=== PATIENT | female | born 1995 | race Two or more races ===

== ENCOUNTER 2017-04-05 19:40 | Emergency (ER) | payer OTHER ==
[~2017-04-05] VITALS: Ht 152.4 cm; Wt 59.0 kg
[2017-04-05 20:10] VITALS: BP 121/78
[2017-04-05] MEDS ORDERED: LANTUS SOL100 UNIT/1 SUBQ (20:10)
[2017-04-05] MEDS ORDERED: HUMALOG 75/255 UNIT1 SUBQ (20:10)
--- NOTE | 2017-04-05 20:36 | Emergency Room Report ---
History of Present Illness General Chief Complaint: Pain Source: Patient Present Illness HPI 22 YO Female presents to the ED c/o intermittent rib and epigastric discomfort with decreased appetite x 8 months. pt rates her discomfort as 8/10 in severity and described bloating/nausea and bilateral rib tenderness. Pt. states she has mentioned her symptoms on several occasions to her PMD whom told her it was muscular after having normal lab results. pt. has copy of most recent lab results from last month. pt. denies , denies trauma/ or fall, denies SOB. pt was rx'd Z-pack two days ago for new onset cough. denies fevers or chills. pt. states cough does not affect intermittent abdominal discomfort. Pt states she has taken tylenol to relieve pain with no relief previously when dx' d as musculoskeletal. Denies N/V/constipation or diarrhea denies CP, Palpitations, LOC, AMS, dizziness, Changes in Vision, Sensation, paresthesias, or a sudden severe headache. Allergies: Coded Allergies: No Known Allergies (Unverified , 04/05/17) Patient History Past Medical History: see triage record Past Surgical History: none Pertinent Family History: none Last Menstrual Period: 03/27/17 Now: No Reviewed Nursing Documentation: PMH: Agreed, PSxH: Agreed Nursing Documentation-PMH Past Medical History: No History, Except For Hx Diabetes: Yes - Type I Review of Systems All Other Systems: negative except mentioned in HPI Physical Exam Vital Signs Date Time Temp Pulse Resp B/P Pulse Ox O2 Delivery O2 Flow Rate FiO2 04/05/17 20:04 98.2 85 16 121/78 97 Room Air Sp02 EP Interpretation: reviewed, normal General Appearance: no apparent distress, alert, GCS 15, non-toxic Head: normocephalic, atraumatic Eyes: bilateral eye PERRL, bilateral eye normal inspection ENT: hearing grossly normal, normal pharynx, no angioedema, normal voice Neck: full range of motion, supple/symm/no masses Respiratory: chest non-tender, lungs clear, normal breath sounds, speaking full sentences Cardiovascular #1: regular rate, rhythm, no edema Gastrointestinal: normal bowel sounds, non tender, soft, no guarding, no rebound Rectal: deferred Genitourinary: normal inspection, no CVA tenderness Musculoskeletal: back normal, gait/station normal, normal range of motion, non- tender, no calf tenderness Neurologic: alert, oriented x3, responsive, motor strength/tone normal, sensory intact, speech normal Psychiatric: judgement/insight normal, memory normal, mood/affect normal Skin: normal color, no rash, warm/dry, well hydrated Lymphatic: no adenopathy Medical Decision Making PA Attestation Dr. Washington is my supervising Physician whom patient management has been discussed with. Diagnostic Impression: Primary Impression: Gastritis Qualified Codes: K29.00 - Acute gastritis without bleeding ER Course Pt. presents to the ED c/o intermittent rib and epigastric discomfort with decreased appetite x 8 months. pt rates her discomfort as 8/10 in severity and described bloating/nausea and bilateral rib tenderness. Pt. states she has mentioned her symptoms on several occasions to her PMD whom told her it was muscular after having normal lab results. pt. has copy of most recent lab results from last month. pt. denies , denies trauma/ or fall, denies SOB. pt was rx'd Z-pack two days ago for new onset cough. denies fevers or chills. pt. states cough does not affect intermittent abdominal discomfort. -has PMD appt. tomorrow. recent normal lab results. Ddx considered but are not limited to GE, gastritis, colitis, acute appy, SBO, , pneumonia Vital signs: pt. is afebrile, H&PE are most consistent with probable gastritis, no PE to suggest acute abdomen or pancreatitis, no organomegaly palpated. pain is not reproducible, lung sounds are CTA bilaterally. ORDERS: - Urine HCG: negative ED INTERVENTIONS: - GI cocktail I do not suspect an emergent condition at this time. with current presentation pt. is stable for close outpatient follow up. DISCHARGE: At this time pt. is stable for d/c to home. Will provide printed patient care instructions, and any necessary prescriptions. Care plan and follow up instructions have been discussed with the patient prior to discharge. Labs Test 04/05/17 21:24 Urine HCG, Qualitative Negative Chest X-Ray Diagnostic Results Chest X-Ray Ordered: Yes # of Views/Limited/Complete: 1 View Interpretation: no consolidation, no effusion, no pneumothorax, no acute cardiopulmonary disease Indication: Chest Pain - bilateral anterior lower rib/chest pain Impression: No acute disease Date Electronically Signed: Apr 05, 2017 Time Electronically Signed: 21:30 Interpreting ER Physician: Dr. Washington PA Scribe Text acting as a scribe for dr. Washington. Last Vital Signs Date Time Temp Pulse Resp B/P Pulse Ox O2 Delivery O2 Flow Rate FiO2 04/05/17 20:04 98.2 85 16 121/78 97 Room Air Disposition: HOME, SELF-CARE Condition: Stable Scripts Lidocaine HCl (Lidocaine HCl Viscous) 100 Ml Solution 15 ML PO QID, #120 ML Prov: Teena Lima 04/05/17 Ranitidine Hcl* (ZANTAC*) 150 Mg Tablet 150 MG ORAL TWICE A DAY for 30 Days, #60 TAB Prov: Teena Lima 04/05/17 Patient Instructions: Gastritis, Adult, [id number] Additional Instructions: Take medications as directed. Follow up with PCP in 3-5 days, if symptoms persist recommend further evaluation to include pancreatic enzymes. Return sooner to ED if new symptoms occur, or current symptoms become worse. - Please note that this Emergency Department Report was dictated using [employer] technology software, occasionally this can lead to erroneous entry secondary to interpretation by the dictation equipment. Teena Lima Apr 05, 2017 20:36
[2017-04-05] MEDS ORDERED: Mylanta II UD 30ml ORAL ONE (21:15)
[2017-04-05] MEDS ORDERED: Dicyclomine HCl 10mg/5ml oral soln ORAL ONE (21:15)
[2017-04-05] MEDS ORDERED: Lidocaine 2% Visc 15ml soln ORAL ONE (21:15)
[2017-04-05] MEDS ORDERED: LIDOCAINE VISCO20 ML PO (22:05)
[2017-04-05] MEDS ORDERED: ZANTAC150 MG ORAL (22:05)
[2017-04-05 22:10] VITALS: BP 118/70
[2017-04-05 22:20] VITALS: BP 118/70
--- NOTE | 2017-04-06 09:24 | Diagnostic Imaging Report ---
Indication: Chest pain Technique: Single portable AP view of the chest. Findings: Comparison: None. The bones and extra pulmonary soft tissues, cardiomediastinal silhouette, pulmonary vasculature and parenchyma, and pleural surfaces are unremarkable. IMPRESSION: Negative portable AP chest.
== END 2017-04-05 22:20 | disposition home or self-care (01) ==
LOC: EMR 21:25
DX: K29.00 Acute gastritis without bleeding (principal); E10.8 Type 1 diabetes mellitus with unspecified complications; R07.9 Chest pain, unspecified
CPT/HCPCS: 71010; 81025; 99284

== ENCOUNTER 2019-04-18 23:54 | Emergency (ER) | payer OTHER ==
[~2019-04-18] VITALS: Ht 154.9 cm; Wt 59.4 kg
[~2019-04-18 23:54] MED LIST: HUMALOG 75/255 UNIT1 SUBQ; LANTUS SOL100 UNIT/1 SUBQ; LIDOCAINE VISCO20 ML PO; ZANTAC150 MG ORAL
[2019-04-19 00:20] VITALS: BP 110/71
--- NOTE | 2019-04-19 00:30 | NUR ---
ER Nurse Note: Pt came from home c/o left lower abd pain. Pt stated the pain got worse today and feels a ball like mass. Pt visited her PCP for same problem but was not resolved. Pt states pain 9/10 sharp pain with nausea. No trauma to abd, no vomiting. All orders completed per ERMD orders. Will continue to monitior
[2019-04-19 00:35] LABS: BASOPHILS % (AUTO) 0.6 % (0.0-2.0); EOSINOPHILS % (AUTO) 1.6 % (0.0-3.0); HEMATOCRIT 39.9 % (37.0-47.0); HEMOGLOBIN 13.8 G/DL (12.0-16.0); LYMPHOCYTES % (AUTO) 17.3 % (20.0-45.0); MEAN CORPUSCULAR VOLUME 86 FL (80-99); MONOCYTES % (AUTO) 6.6 % (1.0-10.0); NEUTROPHILS % (AUTO) 73.9 % (45.0-75.0); PLATELET COUNT 356 K/UL (150-450); RED BLOOD COUNT 4.62 M/UL (4.20-5.40); RED CELL DISTRIBUTION WIDTH 11.2 % (11.6-14.8); WHITE BLOOD COUNT 7.7 K/UL (4.8-10.8)
[2019-04-19 00:36] LABS: APPEARANCE,URINE CLEAR; BILIRUBIN, URINE NEGATIVE (NEGATIVE); COLOR,URINE PALE YELLOW; GLUCOSE, URINE (UA) 4+ (NEGATIVE); KETONES,URINE 3+ (NEGATIVE); LEUKOCYTE ESTERASE ,URINE NEGATIVE (NEGATIVE); NITRITE,URINE NEGATIVE (NEGATIVE); PH,URINE 6 (4.5-8.0); PROTEIN,URINE NEGATIVE (NEGATIVE); UROBILINOGEN,URINE 1 MG/DL (0.0-1.0)
--- NOTE | 2019-04-19 00:45 | NUR ---
Chuy killian in EDM - 04/19/19 at 0058 by [email or web address] ED Nurse Note: Sylwia Palafox from [facility]. Pt is A/OX 4, VSS, will continue to monitor.
--- NOTE | 2019-04-19 00:46 | NUR ---
ED Nurse Note: Received Reort from [facility]/RN. Pt is A/OX 4, VSS, will continue to monitor.
[2019-04-19 00:52] LABS: ALANINE AMINOTRANSFERASE 17 U/L (12-78); ALBUMIN 3.2 G/DL (3.4-5.0); ALBUMIN/GLOBULIN RATIO 0.8 (1.0-2.7); ALKALINE PHOSPHATASE 85 U/L (46-116); ANION GAP 13 mmol/L (5-15); ASPARTATE AMINO TRANSFERASE 8 U/L (15-37); BILIRUBIN,TOTAL 0.4 MG/DL (0.2-1.0); BLOOD UREA NITROGEN 12 mg/dL (7-18); CALCIUM 8.8 MG/DL (8.5-10.1); CARBON DIOXIDE 24 MMOL/L (21-32); CHLORIDE 100 MMOL/L (98-107); POTASSIUM 3.2 MMOL/L (3.5-5.1); SODIUM 137 MMOL/L (136-145)
[2019-04-19] MEDS ORDERED: COLACE100 MG ORAL (01:32)
[2019-04-19 01:47] VITALS: BP 112/73
--- NOTE | 2019-04-19 01:47 | NUR ---
ER DISCHARGE NOTE: Patient is cleared to be discharged per Becca. Pt is aox4 on room air with stable vital signs. Pt was given dc and prescription instructions and was able to verbalize understanding. Pt's ID band and iv site removed without complications. Pt is able to ambulate with steady gait and took all belongings.
--- NOTE | 2019-04-19 03:08 | Emergency Room Report ---
History of Present Illness General Chief Complaint: Abdominal Pain Source: Patient Present Illness HPI 24-year-old female presents ED for evaluation. Patient walked in complaining of abdominal pain x1 day. Pain is dull, 5 out of 10, nonradiating. Localized to left lower quadrant. Denies nausea or vomiting. Denies fevers or chills. No other aggravating or relieving factors. Denies any other associated symptoms Allergies: Coded Allergies: No Known Allergies (Unverified , 04/05/17) Patient History Past Medical History: none Past Surgical History: none Pertinent Family History: none Social History: Denies: smoking, alcohol use, drug use Last Menstrual Period: 04/04/19 Now: No Immunizations: UTD Reviewed Nursing Documentation: PMH: Agreed; PSxH: Agreed Nursing Documentation-PMH Hx Diabetes: Yes Review of Systems All Other Systems: negative except mentioned in HPI Physical Exam Vital Signs Date Time Temp Pulse Resp B/P (MAP) Pulse Ox O2 Delivery O2 Flow Rate FiO2 04/18/19 23:59 98.1 94 20 110/71 (84) 97 Room Air Sp02 EP Interpretation: reviewed, normal General Appearance: no apparent distress, alert, GCS 15, non-toxic Head: normocephalic, atraumatic Eyes: bilateral eye normal inspection, bilateral eye PERRL ENT: hearing grossly normal, normal pharynx, no angioedema, normal voice Neck: full range of motion, supple/symm/no masses Respiratory: chest non-tender, lungs clear, normal breath sounds, speaking full sentences Cardiovascular #1: regular rate, rhythm, no edema Cardiovascular #2: 2+ carotid (R), 2+ carotid (L), 2+ radial (R), 2+ radial (L) , 2+ dorsalis pedis (R), 2+ dorsalis pedis (L) Gastrointestinal: normal bowel sounds, non tender, soft, non-distended, no guarding, no rebound Rectal: deferred Genitourinary: normal inspection, no CVA tenderness Musculoskeletal: back normal, gait/station normal, normal range of motion, non- tender Neurologic: alert, oriented x3, responsive, motor strength/tone normal, sensory intact, speech normal Psychiatric: judgement/insight normal, memory normal, mood/affect normal, no suicidal/homicidal ideation Reflexes: 3+ bicep (R), 3+ bicep (L), 3+ tricep (R), 3+ tricep (L), 3+ knee (R) , 3+ knee (L) Skin: normal color, no rash, warm/dry, well hydrated Lymphatic: no adenopathy Medical Decision Making Diagnostic Impression: Primary Impression: Constipation Qualified Codes: K59.00 - Constipation, unspecified Additional Impression: Hyperglycemia ER Course Hospital Course 24-year-old F presents to ED with abdominal pain Differential diagnosis includes-appendicitis, cholecystitis, small bowel obstruction, gastritis, Clinical course Patient placed on stretcher. After initial history and physical I ordered labs , IV fluids, and KUB Labs - no leukocytosis, glucose > 300, LFTs normal KUB - copious stool noted Discussed findings with patient. She is a diabetic and takes insulin. States that she ate dinner prior to arrival and did not take her insulin yet. No signs of DKA. Patient states she will take her medication at home. Given IV fluids here. Will discharge with stool softeners. For discharge for close outpatient follow-up. States she has a PMD I feel this is a highly complex case requiring extensive working including EKG/ Rhythm strip, Xray/CT/US, Blood/urine lab work, repeat exams while in ED, and administration of strong opiates/narcotics for pain control, admission to hospital or close patient follow up. Diagnosis - constipation, hyperglycemia Stable and discharged to home with Rx Colace. instructed on high-fiber diet. Followup with PMD. Return to ED if symptoms recur or worsen Labs Test 04/19/19 00:15 04/19/19 00:25 Urine Color Pale yellow Urine Appearance Clear Urine pH 6 (4.5-8.0) Urine Specific Lynx 1.010 (1.005-1.035) Urine Protein Negative (NEGATIVE) Urine Glucose (UA) 4+ (NEGATIVE) Urine Ketones 3+ (NEGATIVE) Urine Blood Negative (NEGATIVE) Urine Nitrite Negative (NEGATIVE) Urine Bilirubin Negative (NEGATIVE) Urine Urobilinogen 1 MG/DL (0.0-1.0) Urine Leukocyte Esterase Negative (NEGATIVE) Urine HCG, Qualitative Negative (NEGATIVE) White Blood Count 7.7 K/UL (4.8-10.8) Red Blood Count 4.62 M/UL (4.20-5.40) Hemoglobin 13.8 G/DL (12.0-16.0) Hematocrit 39.9 % (37.0-47.0) Mean Corpuscular Volume 86 FL (80-99) Mean Corpuscular Hemoglobin 29.8 PG (27.0-31.0) Mean Corpuscular Hemoglobin Concent 34.5 G/DL (32.0-36.0) Red Cell Distribution Width 11.2 % (11.6-14.8) Platelet Count 356 K/UL (150-450) Mean Platelet Volume 6.2 FL (6.5-10.1) Neutrophils (%) (Auto) 73.9 % (45.0-75.0) Lymphocytes (%) (Auto) 17.3 % (20.0-45.0) Monocytes (%) (Auto) 6.6 % (1.0-10.0) Eosinophils (%) (Auto) 1.6 % (0.0-3.0) Basophils (%) (Auto) 0.6 % (0.0-2.0) Sodium Level 137 MMOL/L (136-145) Potassium Level 3.2 MMOL/L (3.5-5.1) Chloride Level 100 MMOL/L (98-107) Carbon Dioxide Level 24 MMOL/L (21-32) Anion Gap 13 mmol/L (5-15) Blood Urea Nitrogen 12 mg/dL (7-18) Creatinine 1.0 MG/DL (0.55-1.30) Estimat Glomerular Filtration Rate > 60 mL/min (>60) Glucose Level 361 MG/DL (74-106) Calcium Level 8.8 MG/DL (8.5-10.1) Total Bilirubin 0.4 MG/DL (0.2-1.0) Aspartate Amino Transf (AST/SGOT) 8 U/L (15-37) Alanine Aminotransferase (ALT/SGPT) 17 U/L (12-78) Alkaline Phosphatase 85 U/L (46-116) Total Protein 7.2 G/DL (6.4-8.2) Albumin 3.2 G/DL (3.4-5.0) Globulin 4.0 g/dL Albumin/Globulin Ratio 0.8 (1.0-2.7) Lipase 274 U/L (73-393) Other X-Ray Diagnostic Results Other X-Ray Diagnostic Results : X-Ray ordered: KUB # of Views/Limited Vs Complete: 1 View Indication: Pain Interpretation: nonspecific bowel gas, no sbo, other - fecal impaction Impression: Other - constipation Electronically Signed by: Electronically signed by Shahab Hudson MD Last Vital Signs Date Time Temp Pulse Resp B/P (MAP) Pulse Ox O2 Delivery O2 Flow Rate FiO2 04/19/19 01:47 98.1 91 20 112/73 97 Room Air Status: improved Disposition: HOME, SELF-CARE Condition: Stable Scripts Docusate Sodium* (COLACE*) 100 Mg Capsule 100 MG ORAL THREE TIMES A DAY, #30 CAP Prov: Shahab Hudson MD 04/19/19 Patient Instructions: Constipation, Adult, [id number] Shahab Hudson MD Apr 19, 2019 03:08
--- NOTE | 2019-04-19 08:15 | Diagnostic Imaging Report ---
. Indication: Abdominal pain Technique: XRAY Abdomen 1v Comparison: None Findings: Nonspecific bowel gas pattern. No air-fluid levels or air-filled distended small bowel loops to suggest small bowel obstruction. There is moderate retained stool noted within the colon. No evidence to suggest free intraperitoneal air. No acute osseous abnormality. Imaged lung bases clear. No radiopaque foreign body. Impression: Moderate retained colonic stool suggesting constipation. Correlate clinically. No radiographic evidence to suggest small bowel obstruction.
== END 2019-04-19 01:47 | disposition home or self-care (01) ==
LOC: EMR 04-19 00:26
DX: K59.00 Constipation, unspecified (principal); E11.65 Type 2 diabetes mellitus with hyperglycemia
CPT/HCPCS: 36415; 74018; 80053; 81003; 81025; 83690; 85025; 96360; 99284

== ENCOUNTER 2019-05-05 12:30 | Emergency (ER) | payer OTHER ==
[~2019-05-05] VITALS: Ht 152.4 cm; Wt 57.6 kg
[2019-05-05 12:30] VITALS: BP 103/73
[~2019-05-05 12:30] MED LIST changes: +COLACE100 MG ORAL
--- NOTE | 2019-05-05 12:30 | NUR ---
ED Nurse Note: Patient walked in to ER c/o abdominal pain 12/30, N/V since last night after she attended to [facility] and drank alcohol. pt aao x4 and ambulatory. skin clean and intact. calm and cooperative. not vomiting since she arrived.
--- NOTE | 2019-05-05 13:00 | NUR ---
ED Nurse Note: Accu check level reported to ERPA.
[2019-05-05 13:21] LABS: HEMATOCRIT 44.5 % (37.0-47.0); HEMOGLOBIN 14.7 G/DL (12.0-16.0); MEAN CORPUSCULAR VOLUME 92 FL (80-99); PLATELET COUNT 383 K/UL (150-450); RED BLOOD COUNT 4.85 M/UL (4.20-5.40); WHITE BLOOD COUNT 13.2 K/UL (4.8-10.8)
[2019-05-05 13:22] LABS: APPEARANCE,URINE CLEAR; BILIRUBIN, URINE NEGATIVE (NEGATIVE); COLOR,URINE PALE YELLOW; GLUCOSE, URINE (UA) 4+ (NEGATIVE); KETONES,URINE 4+ (NEGATIVE); LEUKOCYTE ESTERASE ,URINE NEGATIVE (NEGATIVE); NITRITE,URINE NEGATIVE (NEGATIVE); PH,URINE 5 (4.5-8.0); PROTEIN,URINE NEGATIVE (NEGATIVE); UROBILINOGEN,URINE NORMAL MG/DL (0.0-1.0)
[2019-05-05 13:41] LABS: ANION GAP 17 mmol/L (5-15); BLOOD UREA NITROGEN 9 mg/dL (7-18); CALCIUM 9.3 MG/DL (8.5-10.1); CARBON DIOXIDE 18 MMOL/L (21-32); CHLORIDE 101 MMOL/L (98-107); CREATININE 0.8 MG/DL (0.55-1.30); POTASSIUM 3.9 MMOL/L (3.5-5.1); SODIUM 136 MMOL/L (136-145)
[2019-05-05 13:45] LABS: ALANINE AMINOTRANSFERASE 16 U/L (12-78); ALBUMIN 3.6 G/DL (3.4-5.0); ALBUMIN/GLOBULIN RATIO 0.8 (1.0-2.7); ALKALINE PHOSPHATASE 100 U/L (46-116); ASPARTATE AMINO TRANSFERASE 18 U/L (15-37); BILIRUBIN,TOTAL 0.7 MG/DL (0.2-1.0)
--- NOTE | 2019-05-05 14:15 | Emergency Room Report ---
History of Present Illness General Chief Complaint: Vomiting Present Illness HPI 24-year-old female with history of type 1 diabetes and insulin-dependent here complaining of 2 days of epigastric pain as well as multiple bouts of nonbloody emesis. Patient reports that her symptoms started after having lots of alcohol mixed with sweet mixers at [facility] 2 nights ago. Patient denies loss of consciousness and syncope, diarrhea, constipation, fever and chills. Denies blood in stool. Patient is here with her friend and her friend says that he was called into the [facility] to go and bring her home however reports that someone was watching her the whole night and patient had a lot to drink did not lose consciousness and kept hydrating. Patient reports that she has been using her insulin since. And was conscious during the whole [facility]. Patient checked her sugar this morning and it was above 200 and administered her insulin. Patient denies chest pain, shortness of breath, palpitation, dizziness. Patient reports reports 3 out of 10 headache and rating her epigastric pain 3 out of 10 as well without radiation. Has been able to make a bowel movement since and does not report any blood or any difficulty making bowel movement. Denies drug use and smoking. She further denies painful urination, urinary frequency, hematuria Allergies: Coded Allergies: No Known Allergies (Unverified , 04/05/17) Patient History Past Medical History: see triage record Past Surgical History: unable to obtain Pertinent Family History: none Social History: Reports: alcohol use Last Menstrual Period: april Now: No : 1 Para: 0 Immunizations: UTD Reviewed Nursing Documentation: PMH: Agreed; PSxH: Agreed Nursing Documentation-PMH Hx Diabetes: Yes Review of Systems All Other Systems: negative except mentioned in HPI Physical Exam Vital Signs Date Time Temp Pulse Resp B/P (MAP) Pulse Ox O2 Delivery O2 Flow Rate FiO2 05/05/19 12:30 101 18 Room Air 05/05/19 12:30 98.2 103/73 97 Sp02 EP Interpretation: reviewed, normal General Appearance: alert, GCS 15, non-toxic, mild distress, lethargic Eyes: bilateral eye PERRL ENT: normal ENT inspection, hearing grossly normal, normal pharynx Neck: normal inspection, full range of motion, supple Respiratory: normal inspection, chest non-tender, lungs clear, no rhonchi, no wheezing Cardiovascular #1: normal inspection, regular rate, rhythm, no murmur, normal capillary refill Gastrointestinal: normal inspection, non tender, soft, no mass, no organomegaly , no peritonitis, no bruit, non-distended, no guarding, no hernia, no pulsatile mass, no rebound, other - Negative McBurney's and Rovsing's Rectal: deferred Genitourinary: no CVA tenderness Musculoskeletal: normal inspection, digits/nails normal, gait/station normal Neurologic: normal inspection, alert, oriented x3, responsive, inbound sales consultant III-XII nml as tested, motor strength/tone normal, sensory intact Psychiatric: normal inspection, judgement/insight normal, memory normal Skin: no rash, palpation normal, normal color, normal turgor Lymphatic: normal inspection, no adenopathy Medical Decision Making PA Attestation All my diagnosis and treatment plans were reviewed ad discussed with my supervising physician Dr. Hudson Diagnostic Impression: Primary Impression: Alcohol abuse Additional Impression: Dehydration symptoms ER Course 24-year-old female with history of type 1 diabetes and insulin-dependent here complaining of 2 days of epigastric pain as well as multiple bouts of nonbloody emesis. Patient reports that her symptoms started after having lots of alcohol mixed with sweet mixers at [facility] 2 nights ago. Patient denies loss of consciousness and syncope, diarrhea, constipation, fever and chills. Denies blood in stool. Patient is here with her friend and her friend says that he was called into the [facility] to go and bring her home however reports that someone was watching her the whole night and patient had a lot to drink did not lose consciousness and kept hydrating. Patient reports that she has been using her insulin since. And was conscious during the whole [facility]. Patient checked her sugar this morning and it was above 200 and administered her insulin. Patient denies chest pain, shortness of breath, palpitation, dizziness. Patient reports reports 3 out of 10 headache and rating her epigastric pain 3 out of 10 as well without radiation. Has been able to make a bowel movement since and does not report any blood or any difficulty making bowel movement. Denies drug use and smoking. She further denies painful urination, urinary frequency, hematuria Ddx considered but are not limited to: appendicitis, cholecystis, gastritis, gastroenteritis, UTI, pyelonephritis, SBO, diverticulitis, influenza with GI manifestation, VA, complication with , dehydration secondary to alcohol use Vital signs: are WNL, pt. is afebrile H&PE are most consistent with: Dehydration secondary to alcohol use ORDERS: CBC, CMP, UA, tox screen, urine test, lipase ED INTERVENTIONS: NS bolus, Zofran, Pepcid DISCHARGE: At this time pt. is stable for d/c to home. Will provide printed patient care instructions, and any necessary prescriptions. Care plan and follow up instructions have been discussed with the patient prior to discharge. I advised patient not to drink due to her diabetes status and follow-up with her primary care provider increase oral hydration return to the emergency room with worsening symptoms. At this time since patient is not symptomatic and is not guarding the abdomen no further tests needed regarding elevated white blood counts and glucose. Patient also has an upcoming appointment with primary care provider EKG Diagnostic Results Rate: normal Rhythm: NSR ST Segments: no acute changes Other Impression No changes suggesting hypokalemia or any other abnormality Last Vital Signs Date Time Temp Pulse Resp B/P (MAP) Pulse Ox O2 Delivery O2 Flow Rate FiO2 05/05/19 12:37 98.2 101 16 103/70 (81) 97 Room Air Disposition: HOME, SELF-CARE Condition: Stable Scripts Omeprazole (OMEPRAZOLE) 20 Mg Capsule.dr 20 MG ORAL DAILY, #20 CAP Prov: Jose García 05/05/19 Ondansetron (Zofran) 4 Mg Tablet 4 MG ORAL Q6H PRN for Nausea & Vomiting, #12 TAB Prov: Jose García 05/05/19 Referrals: NON PHYSICIAN (PCP) Patient Instructions: Dehydration, Adult, [id number], Nausea and Vomiting, Adult Additional Instructions: Take medication as directed increase oral hydration specially electrolyte water avoid drinking alcohol keep BRAT diet consisting of bananas, rice, applesauce, toast. Follow-up with primary care provider due to your diabetes and insulin dependency highly recommended to avoid drinking alcohol especially when mixed with sweet juices Jose García May 05, 2019 14:15
[2019-05-05] MEDS ORDERED: ZOFRAN4 M1 ORAL (14:16)
[2019-05-05] MEDS ORDERED: OMEPRAZOLE20 M2 ORAL (14:16)
[2019-05-05 14:26] VITALS: BP 103/70
--- NOTE | 2019-05-05 14:27 | NUR ---
ER DISCHARGE NOTE: Patient is cleared to be discharged per ERMD, pt is aox4, on room air, with stable vital signs. pt was given dc and prescription instructions, pt was able to verbalize understanding, pt id band and iv site removed without complications. pt is able to ambulate with steady gait. pt took all belongings.
== END 2019-05-05 14:28 | disposition home or self-care (01) ==
LOC: EMR 14:01
DX: F10.10 Alcohol abuse, uncomplicated (principal); E86.0 Dehydration; E10.8 Type 1 diabetes mellitus with unspecified complications
CPT/HCPCS: 36415; 80053; 80307; 80329; 81001; 81025; 83690; 85007; 85025; 93005; 96361; 96374; 96375; 99284; J2405; S0028

== ENCOUNTER 2019-05-06 00:28 | Inpatient (IN) | payer OTHER ==
[2019-05-06] VITALS (17 sets, daily range): BP systolic 85–129; BP diastolic 29–75
[~2019-05-06] VITALS: Ht 152.4 cm; Wt 60.3 kg
[~2019-05-06 00:28] MED LIST changes: +OMEPRAZOLE20 M2 ORAL; +ZOFRAN4 M1 ORAL
--- NOTE | 2019-05-06 00:30 | NUR ---
ED Nurse Note: Pt BIBA from home c/o 08/01 abdominal pain w/ N/V since this afternoon. Pt was seen earlier today in the ED for dehydration and hyperglycemia. Pt is DM1 and drank heavily last night. A&Ox4.
[2019-05-06] MEDS ORDERED: LORazepam Inj 2mg/ml 1ml IV ONE (00:45)
[2019-05-06] MEDS ORDERED: Ketorolac 30mg Inj IV ONE (00:45)
[2019-05-06] MEDS ORDERED: Insulin Human Regular 100units/ml 3ml IV ONE (00:45)
[2019-05-06] MEDS ORDERED: DiphenhydrAMINE 50mg/ml Inj IVP ONE (00:45)
[2019-05-06 01:48] LABS: HEMATOCRIT 37.3 % (37.0-47.0); MEAN CORPUSCULAR VOLUME 94 FL (80-99); PLATELET COUNT 329 K/UL (150-450); RED BLOOD COUNT 3.97 M/UL (4.20-5.40); RED CELL DISTRIBUTION WIDTH 12.5 % (11.6-14.8); WHITE BLOOD COUNT 15.2 K/UL (4.8-10.8)
[2019-05-06 02:06] LABS: ALANINE AMINOTRANSFERASE 17 U/L (12-78); ALBUMIN 3.5 G/DL (3.4-5.0); ALBUMIN/GLOBULIN RATIO 1.1 (1.0-2.7); ALKALINE PHOSPHATASE 89 U/L (46-116); ANION GAP 27 mmol/L (5-15); ASPARTATE AMINO TRANSFERASE 17 U/L (15-37); BILIRUBIN,TOTAL 0.6 MG/DL (0.2-1.0); BLOOD UREA NITROGEN 14 mg/dL (7-18); CALCIUM 8.4 MG/DL (8.5-10.1); CHLORIDE 102 MMOL/L (98-107); SODIUM 136 MMOL/L (136-145)
[2019-05-06 02:15] LABS: CARBON DIOXIDE 8 MMOL/L (21-32)
--- NOTE | 2019-05-06 02:30 | NUR ---
ED Nurse Note: Pt is resting in bed, eyes closed, non-labored breathing, no signs of distress. IV fluids infusing per order. will continue to monitor.
--- NOTE | 2019-05-06 03:50 | NUR ---
TRANSFER TO FLOOR: Patient transferred to as ordered, per Dr Sampson. Report given to JOESPH Wyatt. Belongings and medications given to . Family and or S/O informed of transfer.
--- NOTE | 2019-05-06 03:52 | Emergency Room Report ---
History of Present Illness General Chief Complaint: Abdominal Pain Source: Patient Present Illness HPI Patient presents with complaints of ongoing nausea vomiting patient was here recently with Abdominal discomfort and vomiting patient had recent increased alcohol intake And has been having difficulty controlling her glucose levels Patient was here initially having difficulty providing appropriate input however patient's boyfriend has presented and reports that She was not able to keep much fluids down at home She also had developed epigastric pain and chest discomfort Allergies: Coded Allergies: No Known Allergies (Unverified , 04/05/17) Patient History Past Medical History: see triage record Pertinent Family History: none Reviewed Nursing Documentation: PMH: Agreed; PSxH: Agreed Nursing Documentation-PMH Past Medical History: No History, Except For Hx Diabetes: Yes Review of Systems All Other Systems: negative except mentioned in HPI Physical Exam Vital Signs Date Time Temp Pulse Resp B/P (MAP) Pulse Ox O2 Delivery O2 Flow Rate FiO2 05/06/19 00:23 98.1 122 22 122/63 (82) 98 Room Air Sp02 EP Interpretation: reviewed, normal General Appearance: mild distress - Appears uncomfortable Head: normocephalic, atraumatic Eyes: bilateral eye PERRL, bilateral eye EOMI ENT: hearing grossly normal, TMs + canals normal, uvula midline, dry mucus membranes Neck: full range of motion, supple, no meningismus, no bony tend Respiratory: lungs clear, normal breath sounds, no rhonchi, no respiratory distress, no retraction, no accessory muscle use Cardiovascular #1: normal peripheral pulses, regular rate, rhythm, no edema, no gallop, no JVD, no murmur Gastrointestinal: normal bowel sounds, non tender, soft, no mass, no organomegaly, non-distended, no guarding, no hernia, no pulsatile mass, no rebound Genitourinary: no CVA tenderness Musculoskeletal: normal inspection Neurologic: oriented x3, responsive, flatbed stitcher III-XII nml as tested, motor strength/ tone normal, sensory intact Psychiatric: mood/affect normal Skin: no rash Lymphatic: normal inspection, no adenopathy Medical Decision Making Diagnostic Impression: Primary Impression: Vomiting Additional Impressions: Dehydration Hyperglycemia ER Course With the patient's history and examination, multiple differentials considered, including but not limited to , ectopic , ovarian torsion, gastritis, cholecystitis, pancreatitis, appendicitis DKA and other acute pathology entertained Patient has further aggressive IV hydration initiated IV insulin is also provided Patient's CO2 was low however patient does not show signs of obvious DKA nevertheless will require further hydration and intervention And was admitted for further care Labs Test 05/06/19 01:30 White Blood Count 15.2 K/UL (4.8-10.8) Red Blood Count 3.97 M/UL (4.20-5.40) Hemoglobin 12.0 G/DL (12.0-16.0) Hematocrit 37.3 % (37.0-47.0) Mean Corpuscular Volume 94 FL (80-99) Mean Corpuscular Hemoglobin 30.1 PG (27.0-31.0) Mean Corpuscular Hemoglobin Concent 32.1 G/DL (32.0-36.0) Red Cell Distribution Width 12.5 % (11.6-14.8) Platelet Count 329 K/UL (150-450) Mean Platelet Volume 6.1 FL (6.5-10.1) Neutrophils (%) (Auto) % (45.0-75.0) Lymphocytes (%) (Auto) % (20.0-45.0) Monocytes (%) (Auto) % (1.0-10.0) Eosinophils (%) (Auto) % (0.0-3.0) Basophils (%) (Auto) % (0.0-2.0) Sodium Level 136 MMOL/L (136-145) Potassium Level 4.0 MMOL/L (3.5-5.1) Chloride Level 102 MMOL/L (98-107) Carbon Dioxide Level 8 MMOL/L (21-32) Anion Gap 27 mmol/L (5-15) Blood Urea Nitrogen 14 mg/dL (7-18) Creatinine 1.0 MG/DL (0.55-1.30) Estimat Glomerular Filtration Rate > 60 mL/min (>60) Glucose Level 362 MG/DL (74-106) Calcium Level 8.4 MG/DL (8.5-10.1) Total Bilirubin 0.6 MG/DL (0.2-1.0) Aspartate Amino Transf (AST/SGOT) 17 U/L (15-37) Alanine Aminotransferase (ALT/SGPT) 17 U/L (12-78) Alkaline Phosphatase 89 U/L (46-116) Total Protein 6.8 G/DL (6.4-8.2) Albumin 3.5 G/DL (3.4-5.0) Globulin 3.3 g/dL Albumin/Globulin Ratio 1.1 (1.0-2.7) Lipase 67 U/L (73-393) Last Vital Signs Date Time Temp Pulse Resp B/P (MAP) Pulse Ox O2 Delivery O2 Flow Rate FiO2 05/06/19 02:30 97.8 98 18 126/60 98 Room Air Status: improved Disposition: ADMITTED INPATIENT Condition: Serious Referrals: [facility],REFERRING (PCP) Raj Goodman DO May 06, 2019 03:51
--- NOTE | 2019-05-06 03:55 | NUR ---
NURSE NOTES: ADMITTED 24 YEAR OLD FEMALE TO ROOM 309 BED 1 VIA GURNEY FROM EMERGENCY DEPARTMENT, UNDER THE CARE OF DR. FRANCO, ADMITTING DIAGNOSIS GASTROPARESIS/VOMITING. IV INTACT TO LEFT FOREARM/GAUGE 20, NO REDNESS/SWELLING NOTED. PATIENT AWAKE, ORIENTED TO PERSON, PLACE, PURPOSE WITH PERIODS OF FORGETFULNESS, DENIES PAIN. ABDOMEN SOFT, NON DISTENDED, BOWEL SOUNDS AUDIBLE IN ALL QUADRANTS, NO COMPLAINTS OF NAUSEA. AMBULATORY, NOTED WITH UNSTEADY GAIT; RECEIVED ATIVAN IN EMERGENCY DEPARTMENT, FALL PRECAUTIONS INITIATED. ORIENTATED TO ROOM/ENVIRONMENT, ASSISTED WITH COMFORT CARE. BED IN LOWEST POSITION FOR SAFETY, ENCOURAGED PATIENT TO UTILIZE CALL LIGHT FOR ASSISTANCE, VERBALIZED UNDERSTANDING, BED ALARM ACTIVATED FOR PREVENTIVE MEASURES. NAD.
--- NOTE | 2019-05-06 04:15 | NUR ---
NURSE NOTES: TELEPHONE CALL PLACED TO DR. FRANCO FOR ADMITTING ORDERS, LEFT MESSAGE ON VOICE MAIL, WILL AWAIT RETURN CALL. PATIENT RESTING WELL. NAD.
--- NOTE | 2019-05-06 05:00 | NUR ---
NURSE NOTES: FOLLOW UP CALL PLACED TO MD, LEFT MESSAGE ON VOICE MAIL, WILL AWAIT RETURN CALL. NAD.
[2019-05-06] MEDS ORDERED: Ketorolac 30mg Inj IV PRN ×2 (06:15→08:00)
[2019-05-06] MEDS ORDERED: LORazepam Inj 2mg/ml 1ml IV PRN ×4 (06:15→13:00)
[2019-05-06] MEDS ORDERED: NovoLOG Insulin Flexpen SUBQ SCH ×2 (06:30→11:30)
--- NOTE | 2019-05-06 06:53 | NUR ---
NURSE NOTES: TELEPHONE CALL PLACED TO PMD, , LEFT URGENT MESSAGE ON VOICE MAIL, WILL AWAIT RETURN CALL.
--- NOTE | 2019-05-06 07:00 | NUR ---
NURSE NOTES: DR. FRANCO NOTIFIED OF ABNORMAL LABS, NEW ORDER NOTED AND CARRIED OUT.
[2019-05-06 07:29] LABS: HEMATOCRIT 41.6 % (37.0-47.0); HEMOGLOBIN 13.2 G/DL (12.0-16.0); MEAN CORPUSCULAR VOLUME 97 FL (80-99); PLATELET COUNT 431 K/UL (150-450); RED BLOOD COUNT 4.29 M/UL (4.20-5.40); RED CELL DISTRIBUTION WIDTH 12.8 % (11.6-14.8); WHITE BLOOD COUNT 18.6 K/UL (4.8-10.8)
--- NOTE | 2019-05-06 07:45 | NUR ---
NURSE NOTES: TRANSFERRED PATIENT TO ROOM 218 BED 2, REPORT GIVEN TO JOESPH CID. NAD.
--- NOTE | 2019-05-06 07:48 | NUR ---
NURSE NOTES: Patient transferred from , and Received report from Amy/RN, Patient asleep, Lying semi-mcguire, no acute distress/SOB noted. Boyfriend at bedside. Belonging check done, Heart monitor placed, Sinus tachy, 130's. Checked IV, patent and intact, no bleeding or infiltration noted. 1/2 NS running at 75cc/hr. Bed in lowest position and locked, Call light within reach. Will continue plan of care.
[2019-05-06 07:56] LABS: ANION GAP 29 mmol/L (5-15); BLOOD UREA NITROGEN 12 mg/dL (7-18); CALCIUM 9.1 MG/DL (8.5-10.1); CHLORIDE 103 MMOL/L (98-107); CREATININE 1.1 MG/DL (0.55-1.30); PHOSPHORUS 5.6 MG/DL (2.5-4.9); POTASSIUM 5.7 MMOL/L (3.5-5.1); SODIUM 137 MMOL/L (136-145)
[2019-05-06 08:05] LABS: CARBON DIOXIDE 8 MMOL/L (21-32)
--- NOTE | 2019-05-06 11:40 | Consultation ---
History of Present Illness General Date patient seen: May 06, 2019 Chief Complaint: Abdominal Pain Present Illness HPI 24 year old female with hx of DM presented to ER with complaints of ongoing nausea vomiting. She was not able to keep much fluids down at home She also had developed epigastric pain and chest discomfort. Pt is admitted initially to telemetry. Allergies: Coded Allergies: No Known Allergies (Unverified , 04/05/17) Medication History Scheduled Docusate Sodium* (Colace*), 100 MG ORAL THREE TIMES A DAY Insulin Glargine (Lantus), 15 SUBQ BEDTIME, (Reported) Lidocaine HCl 2% Viscous (Lidocaine HCl 2% Viscous), 15 ML PO QID Omeprazole (Omeprazole), 20 MG ORAL DAILY Ranitidine Hcl* (Zantac*), 150 MG ORAL TWICE A DAY Scheduled PRN Ondansetron (Zofran), 4 MG ORAL Q6H PRN for Nausea & Vomiting Miscellaneous Medications Insulin Human Lispro (Humalog), 0 SUBQ, (Reported) Patient History Healthcare decision maker SELF, ALETA REYNAGA Resuscitation status Full Code Advanced Directive on File N/A Past Medical/Surgical History Past Medical/Surgical History: (1) ETOH abuse (2) Diabetes mellitus Review of Systems Eye: Reports: no symptoms Physical Exam General Appearance: WD/WN Lines, tubes and drains: peripheral HEENT: normocephalic, atraumatic Neck: non-tender, normal alignment Respiratory/Chest: chest wall non-tender, lungs clear Breasts: no masses Cardiovascular/Chest: normal peripheral pulses, normal rate Abdomen: normal bowel sounds Last 24 Hour Vital Signs Date Time Temp Pulse Resp B/P (MAP) Pulse Ox O2 Delivery O2 Flow Rate FiO2 05/06/19 08:49 98.3 130 22 107/61 (76) 95 05/06/19 08:00 130 05/06/19 04:29 98.9 95 20 129/75 (93) 97 05/06/19 03:54 Room Air 05/06/19 02:30 97.8 98 18 126/60 98 Room Air 05/06/19 01:35 98.1 05/06/19 00:30 98.1 120 22 122/63 98 Room Air 05/06/19 00:30 122 22 Room Air 05/06/19 00:23 98.1 122 22 122/63 (82) 98 Room Air Laboratory Tests Test 05/06/19 01:30 05/06/19 06:45 05/06/19 09:21 White Blood Count 15.2 K/UL (4.8-10.8) H 18.6 K/UL (4.8-10.8) H Red Blood Count 3.97 M/UL (4.20-5.40) L 4.29 M/UL (4.20-5.40) Hemoglobin 12.0 G/DL (12.0-16.0) 13.2 G/DL (12.0-16.0) Hematocrit 37.3 % (37.0-47.0) 41.6 % (37.0-47.0) Mean Corpuscular Volume 94 FL (80-99) 97 FL (80-99) Mean Corpuscular Hemoglobin 30.1 PG (27.0-31.0) 30.7 PG (27.0-31.0) Mean Corpuscular Hemoglobin Concent 32.1 G/DL (32.0-36.0) 31.7 G/DL (32.0-36.0) L Red Cell Distribution Width 12.5 % (11.6-14.8) 12.8 % (11.6-14.8) Platelet Count 329 K/UL (150-450) 431 K/UL (150-450) Mean Platelet Volume 6.1 FL (6.5-10.1) L 5.8 FL (6.5-10.1) L Neutrophils (%) (Auto) % (45.0-75.0) % (45.0-75.0) Lymphocytes (%) (Auto) % (20.0-45.0) % (20.0-45.0) Monocytes (%) (Auto) % (1.0-10.0) % (1.0-10.0) Eosinophils (%) (Auto) % (0.0-3.0) % (0.0-3.0) Basophils (%) (Auto) % (0.0-2.0) % (0.0-2.0) Sodium Level 136 MMOL/L (136-145) 137 MMOL/L (136-145) Potassium Level 4.0 MMOL/L (3.5-5.1) 5.7 MMOL/L (3.5-5.1) H Chloride Level 102 MMOL/L (98-107) 103 MMOL/L (98-107) Carbon Dioxide Level 8 MMOL/L (21-32) *L 8 MMOL/L (21-32) *L Anion Gap 27 mmol/L (5-15) H 29 mmol/L (5-15) H Blood Urea Nitrogen 14 mg/dL (7-18) 12 mg/dL (7-18) Creatinine 1.0 MG/DL (0.55-1.30) 1.1 MG/DL (0.55-1.30) Estimat Glomerular Filtration Rate > 60 mL/min (>60) > 60 mL/min (>60) Glucose Level 362 MG/DL (74-106) H 483 MG/DL (74-106) #H Calcium Level 8.4 MG/DL (8.5-10.1) L 9.1 MG/DL (8.5-10.1) Total Bilirubin 0.6 MG/DL (0.2-1.0) Aspartate Amino Transf (AST/SGOT) 17 U/L (15-37) Alanine Aminotransferase (ALT/SGPT) 17 U/L (12-78) Alkaline Phosphatase 89 U/L (46-116) Total Protein 6.8 G/DL (6.4-8.2) Albumin 3.5 G/DL (3.4-5.0) Globulin 3.3 g/dL Albumin/Globulin Ratio 1.1 (1.0-2.7) Lipase 67 U/L (73-393) L Neutrophils % (Manual) Pending Lymphocytes % (Manual) Pending Platelet Estimate Pending Platelet Morphology Pending Hemoglobin A1c 10.0 % (4.3-6.0) H Phosphorus Level 5.6 MG/DL (2.5-4.9) H Magnesium Level 2.0 MG/DL (1.8-2.4) Arterial Blood pH 7.195 (7.350-7.450) Arterial Blood Partial Pressure CO2 14.4 mmHg (35.0-45.0) *L Arterial Blood Partial Pressure O2 130.0 mmHg (75.0-100.0) H Arterial Blood HCO3 5.4 mmol/L (22.0-26.0) *L Arterial Blood Oxygen Saturation % (95-100) Arterial Blood Base Excess -20.0 (-2-2) *L Brad Test Positive Height (Feet): 5 Height (Inches): 0.00 Weight (Pounds): 130 Medications Current Medications Medications (Trade) Dose Ordered Sig/Loc Route PRN Reason Start Time Stop Time Status Last Admin Dose Admin Dextrose (Dextrose 50%) 25 ml Q30M PRN IV Hypoglycemia 05/06/19 08:15 06/05/19 06:14 Dextrose (Dextrose 50%) 50 ml Q30M PRN IV Hypoglycemia 05/06/19 08:15 06/05/19 06:14 Famotidine (Pepcid I.v.) 20 mg Q12HR IVP 05/06/19 09:00 06/05/19 08:59 05/06/19 09:18 Insulin Aspart (NovoLOG) BEFORE MEALS AND HS SUBQ 05/06/19 11:30 06/05/19 06:29 Ketorolac Tromethamine (Toradol 30mg) 15 mg Q8H PRN IV Severe Pain (Pain Scale 7-10) 05/06/19 08:00 05/11/19 07:59 Lorazepam (Ativan 2mg/ml 1ml) 1 mg Q6H PRN IV For Anxiety 05/06/19 08:00 05/13/19 07:59 Ondansetron HCl (Zofran) 4 mg Q4H PRN IVP Nausea & Vomiting 05/06/19 08:00 06/05/19 07:59 Sodium Chloride 1,000 ml @ 75 mls/hr [id number] IV 05/06/19 08:00 06/05/19 06:14 Assessment/Plan Problem List: (1) DKA, type 1 ICD Codes: E10.10 - Type 1 diabetes mellitus with ketoacidosis without coma SNOMED: 17944178, 552974383 (2) Diabetes mellitus ICD Codes: E11.9 - Type 2 diabetes mellitus without complications SNOMED: 75528443 Assessment/Plan: transfer to ICU insulin drip symptomatic treatment dvt prophylaxis. Ministerio Coyle MD May 06, 2019 11:40
[2019-05-06] MEDS ORDERED: Albuterol/Ipratropium 3ml neb HHN PRN ×2 (11:45→13:00)
[2019-05-06] MEDS ORDERED: Insulin Human Regular 100units/ml 3ml IV PRN ×4 (11:45→20:45)
[2019-05-06] MEDS ORDERED: Insulin Rate Change 1 Each MISC PRN ×2 (11:45→13:00)
[2019-05-06] MEDS ORDERED: Miralax 17gm pkt ORAL PRN (12:00)
[2019-05-06] MEDS ORDERED: Nitroglycerin Subl 0.4mg tab SL PRN ×2 (12:15→12:45)
--- NOTE | 2019-05-06 12:15 | NUR ---
HAND-OFF: Patient transferred to ICU and Report given to Karan/JOESPH. Endorsed plan of care.
--- NOTE | 2019-05-06 12:15 | NUR ---
NURSE NOTES: Received pt admission/transfer from Tele to Room G, transferred via hospital bed. Report received from Judy RN. Pt is drowsy, restless, oriented to name; accompanied by significant other. Tele monitor placed on pt, displays ST with heart rate fluctuating in the 120's, Temp axillary 98.5F, BP 90's/50's, O2sat at 100% on room air. Belonging's list was checked and signed with the transferring nurse in front of the pt. Pt has peripheral IV access on right AC #20G, patent/intact. Bounding peripheral pulses present with no edema. Lung sounds are clear. Pt is currently NPO. Abdomen is round, nondistended, soft/nontender to touch. Pt reports slight stomach discomfort 3/10 pain scale. Skin is intact. Bed is locked, with three side rails up and call light within easy reach. Will continue to monitor pt and follow plan of care per MD orders and protocol.
[2019-05-06] MEDS ORDERED: Morphine Sulfate 4mg/ml Inj (IV USE ONLY) IVP PRN (12:30)
--- NOTE | 2019-05-06 13:53 | NUR ---
CASE MANAGEMENT: INITIAL REVIEW 24 YO F BÁRBARA FROM HOME CC: DEHYDRATION. HYPERGLYCEMIA. NAUSEA. PMHx: DM. ETOH ABUSE. SI:GASTROPARESIS. VOMITING. T 98.2 HR 122 RR 22 B/P 122/63 SATS 98% ON RA WBC 15.2 CO2 8 AGAP 27 GLU 362 HA1C 10 CA 8.4 LIPASE 67 ABGs PH 7.195 PCO2 14.4 PO2 130 HCO3 5.4 BE -20 IS: NS BOLUS X1 ATIVAN IV X1 TORADOL IV X1 BENADRYL IV X1 ZOFRAN IV X1 HUMAN INSULIN 6 UNIT IV X1 PATIENT ADMITTED TO MED/SURG 05/06/2019 @ 0210 DCP: PATIENT TO BE DISCHARGED TO HOME ONCE MEDICALLY CLEARED. PLAN OF CARE: TRANSFER TO ICU Addendum: 05/06/19 at 1409 by Carrie Sepulveda INTERQUAL MET
[2019-05-06] MEDS: Morphine Sulfate 4mg/ml Inj (IV USE ONLY) IVP PRN (13:58)
--- NOTE | 2019-05-06 14:00 | NUR ---
NURSE NOTES: Pt has been placed on Insulin drip as ordered currently on Algorithm 3, at 17units/hr per order, for blood glucose of 402. Also per algorithm protocol, additional 10units of regular insulin was administered IVP. Family at bedside. Pt is asleep, in no apparent distress.
[2019-05-06] MEDS: Insulin Human Regular 100units/ml 3ml IV PRN ×2 (14:11→15:15)
--- NOTE | 2019-05-06 14:30 | NUR ---
NURSE NOTES: Pt was administered Morphine 4mg IVP and Zofran 4mg IVP for severe stomach pain and nausea at 1358. Pt is now asleep in no apparent distress.
--- NOTE | 2019-05-06 15:00 | NUR ---
NURSE NOTES: Insulin drip has been titrated to 15 units/hr for blood glucose of 346 as per Algorithm 3 order/protocol. Additional 10units IVP also administered per order/protocol.
--- NOTE | 2019-05-06 15:30 | NUR ---
NURSE NOTES: Urine specimen was collected via straight cath for STAT urinalysis and sent to lab for processing.
[2019-05-06 15:55] LABS: APPEARANCE,URINE CLEAR; BILIRUBIN, URINE NEGATIVE (NEGATIVE); COLOR,URINE PALE YELLOW; GLUCOSE, URINE (UA) 4+ (NEGATIVE); KETONES,URINE 4+ (NEGATIVE); LEUKOCYTE ESTERASE ,URINE NEGATIVE (NEGATIVE); NITRITE,URINE NEGATIVE (NEGATIVE); PH,URINE 5 (4.5-8.0); PROTEIN,URINE 2+ (NEGATIVE); UROBILINOGEN,URINE NORMAL MG/DL (0.0-1.0)
--- NOTE | 2019-05-06 16:00 | NUR ---
NURSE NOTES: Insulin drip has been titrated to 7.5 units/hr for blood glucose of 220 as per Algorithm 3 order/protocol. Additional 5units IVP also administered per order/protocol. Pt is asleep with no apparent distress with family at bedside.
--- NOTE | 2019-05-06 17:00 | NUR ---
NURSE NOTES: Insulin drip has been titrated to 4 units/hr for blood glucose of 158 as per Algorithm 3 order/protocol. VS stable with improving baseline ST, heart rate now 110's, Temp 98.5F axillary. Pt is asleep in no apparent distress with family at bedside.
--- NOTE | 2019-05-06 18:00 | NUR ---
NURSE NOTES: Insulin drip has been titrated to 2units/hour per Algorithm 3 order/protocol for blood glucose of 112. Pt is currently asleep in no apparent distress.
[2019-05-06 18:36] LABS: ANION GAP 21 mmol/L (5-15); BLOOD UREA NITROGEN 13 mg/dL (7-18); CALCIUM 8.6 MG/DL (8.5-10.1); CARBON DIOXIDE 10 MMOL/L (21-32); CHLORIDE 110 MMOL/L (98-107); CREATININE 1.2 MG/DL (0.55-1.30); POTASSIUM 4.1 MMOL/L (3.5-5.1); SODIUM 141 MMOL/L (136-145)
[2019-05-06] MEDS: D5 1/2NS 1,000 ML IV SCH (18:56)
--- NOTE | 2019-05-06 19:00 | NUR ---
NURSE NOTES: Insulin drip has been titrated to 1unit/hour per Algorithm 3 order/protocol for blood glucose of 99. VS stable. Pt is resting with no s/s of distress/discomfort noted.
--- NOTE | 2019-05-06 19:38 | NUR ---
HAND-OFF: Report given to Nicolás RN. VS stable. Endorsed plan of care.
--- NOTE | 2019-05-06 19:45 | NUR ---
NURSE NOTES: PT'S FAMILY STAYED AT BEDSIDE. PATIENT ALERT, ORIENTED X4, DENIED PAIN OR SOB, ON O2 2LPM VIA NC, O2 SATURATION 100% NOTED, ABDOMEN SOFT, NO N/V NOTED, PERIPHERAL LINE TO RIGHT AC LEAKED THAT WAS REMOVED AND INSERTED TO RIGHT HAND 22G AND LEFT HAND 24G, ON ALGORITHM 3 INSULIN DRIP 1UNIT/HR AND D5W 1/2NS AT 125ML/HR RUNNING STATUS. MADE LOWER BED POSITION, PROVIDED CALL LIGHT WITHIN REACH, WILL CONTINUE TO MONITOR.
--- NOTE | 2019-05-06 20:55 | NUR ---
NURSE NOTES: COMPLAINED NAUSEA AND ABDOMINAL DISCOMFORT THAT GIVEN ZOFRAN 4MG BY IVP PRN ORDERED, WILL CONTINUE TO MONITOR.
[2019-05-06] MEDS: Insulin Rate Change 1 Each MISC PRN ×2 (21:31→23:30)
--- NOTE | 2019-05-06 22:40 | NUR ---
NURSE NOTES: SEEN THE PATIENT BY DR. FRANCO, NO NEW ORDER STATUS.
--- NOTE | 2019-05-06 23:05 | History & Physical ---
History and Physical History & Physicial Taco Sampson MD May 06, 2019 23:05
[2019-05-07] VITALS (25 sets, daily range): BP systolic 80–116; BP diastolic 40–78
--- NOTE | 2019-05-07 00:15 | History and Physical Report ---
DATE OF ADMISSION: 05/06/2019 CHIEF COMPLAINT: Abdominal pain. HISTORY OF PRESENT ILLNESS: This is a 24-year-old female with past medical history significant for diabetes type 1, who presented to emergency room complaining about nausea, vomiting, abdominal discomfort. The patient was recently presented to emergency room after had an elevated blood glucose level due to the alcohol consumption and shortly after initial evaluation in the emergency, the patient was admitted to the hospital with acute DKA. PAST MEDICAL HISTORY/PAST SURGICAL HISTORY: As above. History of diabetes type 1. MEDICATIONS AT HOME: Please refer to medication reconciliation. ALLERGIES: No known drug allergies. SOCIAL HISTORY: No smoking. Socially drinks. No substance. FAMILY HISTORY: Noncontributory. REVIEW OF SYSTEMS: Mostly as above. Denies any dysuria, frequency, hematuria. Complained about nausea, vomiting, abdominal pain. Denies any hemoptysis, hematochezia. Denies any suicidal or homicidal ideation. Denies any loss of consciousness. PHYSICAL EXAMINATION: VITAL SIGNS: On admission temperature 98.1, pulse of 122, respirations 22, blood pressure 122/63. GENERAL: The patient awake, responsive. No acute distress. HEAD AND NECK: Pupils are reactive to light. Extraocular movements intact. Neck was supple. No JVD. LUNGS: Good air entry. No wheezing or rales. HEART: S1, S2. Tachycardic. ABDOMEN: Soft. Epigastric tenderness. No rebound tenderness. No fluid shift. EXTREMITIES: No cyanosis, clubbing, edema. NEUROLOGIC: Cranial nerves II through XII grossly intact. Motor is 5/5 and symmetric. Gait was not assessed due to the patient's status. LABORATORY DATA: On admission from the ER, WBC of 15, hemoglobin 12, hematocrit 37, platelets is 327. ABG is pH of 7.195, pCO2 of 14, pO2 of 130. The patient's sodium 136, potassium 4.0, chloride 102, bicarb is 8, BUN 14, creatinine 1.1, glucose level is 362. Hemoglobin A1c is 10.0. Urinalysis, +2 protein, +4 glucose, +4 ketones, +1 blood, negative nitrite, negative leukocyte. ASSESSMENT: 1. Acute DKA. 2. Diabetes type 1, uncontrolled. 3. Epigastric pain, abdominal pain. 4. Metabolic acidosis. PLAN: 1. Admit the patient to ICU. 2. We will follow up laboratory. 3. Aggressive IV hydration. 4. Insulin drip. 5. Follow up with Dr. Coyle's recommendation from Critical Care. 6. Discussed with family member at bedside. 7. Ultrasound of abdomen. 8. Chest x-ray. 9. Follow up with culture. 10. At this time, we would hold off on antibiotic therapy until figure out if there is any source of infection. Tcao Sampson M.D. DR: NIKKY JOB#: [id number] CC:
[2019-05-07] MEDS: Insulin Rate Change 1 Each MISC PRN ×8 (00:31→23:55)
--- NOTE | 2019-05-07 00:41 | NUR ---
NURSE NOTES: PATIENT ASLEEP STATUS, NO PAIN OR DISTRESS NOTED AT THIS TIME.
--- NOTE | 2019-05-07 02:30 | NUR ---
NURSE NOTES: PATIENT ASLEEP STATUS, BS 144mg/dl NOTED, STAY INSULIN DRIP 2 UNITS/HR PER PROTOCOLS, WILL CONTINUE PLAN OF CARE.
[2019-05-07] MEDS: D5 1/2NS 1,000 ML IV SCH ×3 (03:00→23:59)
--- NOTE | 2019-05-07 04:20 | NUR ---
NURSE NOTES: NO PAIN OR DISTRESS NOTED AT THIS TIME.
[2019-05-07 05:48] LABS: INR 1.2 (0.9-1.1)
--- NOTE | 2019-05-07 06:30 | NUR ---
NURSE NOTES: PATIENT ASLEEP STATUS, ON ALGORITHM INSULIN DRIP 1.5UNITS/HR VIA RIGHT SIDE PPL.
--- NOTE | 2019-05-07 07:10 | NUR ---
HAND-OFF: Report given to JOESPH LAMBERT.
--- NOTE | 2019-05-07 07:15 | NUR ---
NURSE NOTES: Received change of shift report from Nicolás RN. Pt is asleep, awakens to name/touch, pt is drowsy. Currently on 2L of oxygen via nasal cannula with 100% O2sat. solderer production line displays NSR with heart rate in the 90's with bounding peripheral pulses. Pt is currently NPO, abdomen is round, soft, mildly tender to touch with hypoactive bowel sounds. Peripheral IV access is present on right hand #22G infusing Insulin Drip at 1.5units/hr and left hand #24G infusing D5 0.45% at 125ml/hr. Bedside commode is set up. Bed is locked with three side rails up, and call light within easy reach. Will continue to monitor pt and follow plan of care per MD orders and protocol.
--- NOTE | 2019-05-07 08:00 | NUR ---
NURSE NOTES: Insulin drip is maintained 1.5 units/hr for blood glucose of 134 as per Algorithm 2 order/protocol. VS stable. Family at bedside currently.
[2019-05-07 08:30] LABS: BASOPHILS % (AUTO) 0.9 % (0.0-2.0); EOSINOPHILS % (AUTO) 1.2 % (0.0-3.0); HEMATOCRIT 37.5 % (37.0-47.0); HEMOGLOBIN 12.1 G/DL (12.0-16.0); LYMPHOCYTES % (AUTO) 25.1 % (20.0-45.0); MEAN CORPUSCULAR VOLUME 94 FL (80-99); MONOCYTES % (AUTO) 5.8 % (1.0-10.0); PLATELET COUNT 321 K/UL (150-450); RED BLOOD COUNT 3.99 M/UL (4.20-5.40); RED CELL DISTRIBUTION WIDTH 12.6 % (11.6-14.8); WHITE BLOOD COUNT 11.7 K/UL (4.8-10.8)
--- NOTE | 2019-05-07 09:00 | NUR ---
NURSE NOTES: Insulin drip has been titrated to 2.5 units/hr for blood glucose of 175 as per Algorithm 2 order/protocol. VS stable.
[2019-05-07 09:14] LABS: ALANINE AMINOTRANSFERASE 15 U/L (12-78); ALBUMIN/GLOBULIN RATIO 0.9 (1.0-2.7); ALKALINE PHOSPHATASE 89 U/L (46-116); ANION GAP 12 mmol/L (5-15); ASPARTATE AMINO TRANSFERASE 21 U/L (15-37); BILIRUBIN,DIRECT < 0.1 MG/DL (0.0-0.3); BILIRUBIN,TOTAL 0.5 MG/DL (0.2-1.0); BLOOD UREA NITROGEN 7 mg/dL (7-18); CALCIUM 8.8 MG/DL (8.5-10.1); CARBON DIOXIDE 18 MMOL/L (21-32); CHLORIDE 112 MMOL/L (98-107); CREATININE 0.9 MG/DL (0.55-1.30); PHOSPHORUS 1.7 MG/DL (2.5-4.9); POTASSIUM 3.7 MMOL/L (3.5-5.1); SODIUM 142 MMOL/L (136-145)
--- NOTE | 2019-05-07 10:00 | NUR ---
NURSE NOTES: Insulin drip has been titrated to 1.5 units/hr for blood glucose of 137 as per Algorithm 2 order/protocol. VS stable.
--- NOTE | 2019-05-07 10:12 | GI Initial Consult Note ---
History of Present Illness General Date patient seen: May 07, 2019 Time patient seen: 10:08 Reason for Hospitalization: Abdominal Pain Referring physician: VIVIENNE FRANCO Reason for Consultation: VOMITING Present Illness HPI Patient presents with complaints of ongoing nausea vomiting patient was here recently with Abdominal discomfort and vomiting patient had recent increased alcohol intake And has been having difficulty controlling her glucose levels Patient was here initially having difficulty providing appropriate input however patient's boyfriend has presented and reports that She was not able to keep much fluids down at home She also had developed epigastric pain and chest discomfort GI consulted for persistent vomiting. ROS limited, patient appeared fatigue. Patient seen, no apparent distress with no active signs symptoms of nausea vomiting. is at bedside. According to the boyfriend, the patient had excessive intake of EtOH approximately 2 days which resulted in persistent vomiting. Patient went to the ER in which the medical provider at that time discharge the patient home. The patient was then readmitted for persistent vomiting, p.o. intake intolerance, and elevated glucose levels. The patient has no history of endoscopic colonoscopy Home Meds Active Scripts Omeprazole (OMEPRAZOLE) 20 Mg Capsule.dr, 20 MG ORAL DAILY, #20 CAP Prov:Jose García 05/05/19 Ondansetron (Zofran) 4 Mg Tablet, 4 MG ORAL Q6H PRN for Nausea & Vomiting, #12 TAB Prov:Jose García 05/05/19 Docusate Sodium* (COLACE*) 100 Mg Capsule, 100 MG ORAL THREE TIMES A DAY, #30 CAP Prov:Shahab Hudson MD 04/19/19 Lidocaine HCl 2% Viscous (Lidocaine HCl 2% Viscous) 100 Ml Solution, 15 ML PO QID, #120 ML Prov:Teena Lima 04/05/17 Ranitidine Hcl* (ZANTAC*) 150 Mg Tablet, 150 MG ORAL TWICE A DAY for 30 Days, # 60 TAB Prov:Teena Lima 04/05/17 Reported Medications Insulin Human Lispro (Humalog) 100 Unit/1 Ml Vial, 0 SUBQ, #1 UNIT 0 Refills 04/05/17 Insulin Glargine (LANTUS) 100 Unit/1 Ml Insuln.pen, 15 SUBQ BEDTIME, #1 EA 0 Refills 04/05/17 Med list reviewed/reconciled: Yes Allergies: Coded Allergies: No Known Allergies (Unverified , 04/05/17) Patient History History Provided By: Patient, Significant Other, Medical Record PMH Narrative Past Medical History: see triage record Pertinent Family History: none Reviewed Nursing Documentation: PMH: Agreed; PSxH: Agreed Nursing Documentation-PMH Past Medical History: No History, Except For Hx Diabetes: Yes Social History: Reports: alcohol use Review of Systems All Other Systems: negative except mentioned in HPI Physical Exam Vital Signs Date Time Temp Pulse Resp B/P (MAP) Pulse Ox O2 Delivery O2 Flow Rate FiO2 05/06/19 00:23 98.1 122 22 122/63 (82) 98 Room Air 05/06/19 19:57 2.0 28 Sp02 EP Interpretation: reviewed, normal Labs Laboratory Tests Test 05/06/19 15:30 05/06/19 18:00 05/07/19 04:35 05/07/19 07:55 Urine Color Pale yellow Urine Appearance Clear Urine pH 5 (4.5-8.0) Urine Specific [place] 1.020 (1.005-1.035) Urine Protein 2+ (NEGATIVE) H Urine Glucose (UA) 4+ (NEGATIVE) H Urine Ketones 4+ (NEGATIVE) H Urine Blood 1+ (NEGATIVE) H Urine Nitrite Negative (NEGATIVE) Urine Bilirubin Negative (NEGATIVE) Urine Urobilinogen Normal MG/DL (0.0-1.0) Urine Leukocyte Esterase Negative (NEGATIVE) Urine RBC 0-2 /HPF (0 - 2) Urine WBC 0 /HPF (0 - 2) Urine Squamous Epithelial Cells Few /LPF (NONE/OCC) Urine Bacteria Occasional /HPF (NONE) Sodium Level 141 MMOL/L (136-145) Potassium Level 4.1 MMOL/L (3.5-5.1) Chloride Level 110 MMOL/L (98-107) H Carbon Dioxide Level 10 MMOL/L (21-32) L Anion Gap 21 mmol/L (5-15) H Blood Urea Nitrogen 13 mg/dL (7-18) Creatinine 1.2 MG/DL (0.55-1.30) Estimat Glomerular Filtration Rate 54.8 mL/min (>60) Glucose Level 139 MG/DL (74-106) #H Calcium Level 8.6 MG/DL (8.5-10.1) Prothrombin Time 12.7 SEC (9.30-11.50) H Prothromb Time International Ratio 1.2 (0.9-1.1) H Activated Partial Thromboplast Time 33 SEC (23-33) Magnesium Level 1.0 MG/DL (1.8-2.4) L Arterial Blood pH 7.358 (7.350-7.450) Arterial Blood Partial Pressure CO2 27.9 mmHg (35.0-45.0) L Arterial Blood Partial Pressure O2 154.0 mmHg (75.0-100.0) H Arterial Blood HCO3 15.3 mmol/L (22.0-26.0) *L Arterial Blood Oxygen Saturation 99.0 % (95-100) Arterial Blood Base Excess -8.7 (-2-2) L Brad Test Positive Test 05/07/19 08:10 White Blood Count 11.7 K/UL (4.8-10.8) H Red Blood Count 3.99 M/UL (4.20-5.40) L Hemoglobin 12.1 G/DL (12.0-16.0) Hematocrit 37.5 % (37.0-47.0) Mean Corpuscular Volume 94 FL (80-99) Mean Corpuscular Hemoglobin 30.4 PG (27.0-31.0) Mean Corpuscular Hemoglobin Concent 32.4 G/DL (32.0-36.0) Red Cell Distribution Width 12.6 % (11.6-14.8) Platelet Count 321 K/UL (150-450) Mean Platelet Volume 5.6 FL (6.5-10.1) L Neutrophils (%) (Auto) 67.0 % (45.0-75.0) Lymphocytes (%) (Auto) 25.1 % (20.0-45.0) Monocytes (%) (Auto) 5.8 % (1.0-10.0) Eosinophils (%) (Auto) 1.2 % (0.0-3.0) Basophils (%) (Auto) 0.9 % (0.0-2.0) Sodium Level 142 MMOL/L (136-145) Potassium Level 3.7 MMOL/L (3.5-5.1) Chloride Level 112 MMOL/L (98-107) H Carbon Dioxide Level 18 MMOL/L (21-32) L Anion Gap 12 mmol/L (5-15) Blood Urea Nitrogen 7 mg/dL (7-18) Creatinine 0.9 MG/DL (0.55-1.30) Estimat Glomerular Filtration Rate > 60 mL/min (>60) Glucose Level 151 MG/DL (74-106) H Calcium Level 8.8 MG/DL (8.5-10.1) Phosphorus Level 1.7 MG/DL (2.5-4.9) L Magnesium Level 1.8 MG/DL (1.8-2.4) Total Bilirubin 0.5 MG/DL (0.2-1.0) Direct Bilirubin < 0.1 MG/DL (0.0-0.3) Aspartate Amino Transf (AST/SGOT) 21 U/L (15-37) Alanine Aminotransferase (ALT/SGPT) 15 U/L (12-78) Alkaline Phosphatase 89 U/L (46-116) Total Protein 6.4 G/DL (6.4-8.2) Albumin 3.0 G/DL (3.4-5.0) L Globulin 3.4 g/dL Albumin/Globulin Ratio 0.9 (1.0-2.7) L General Appearance: well appearing, no apparent distress, alert Head: normocephalic EENT: PERRL/EOMI, normal ENT inspection Neck: supple Respiratory: normal breath sounds, no respiratory distress Cardiovascular: normal rate Gastrointestinal: normal inspection, non tender, soft, normal bowel sounds, non -distended Rectal: deferred Genitourinary: no CVA tenderness Musculoskeletal: normal inspection, back normal Neurologic: normal inspection, alert, oriented x3, responsive Psychiatric: normal inspection, judgement/insight normal, memory normal Skin: normal inspection, normal color, no rash, warm/dry, palpation normal, well hydrated Lymphatic: normal inspection, no adenopathy Current Medications Current Medications Medications (Trade) Dose Ordered Sig/Loc Route PRN Reason Start Time Stop Time Status Last Admin Dose Admin Acetaminophen (Tylenol) 650 mg Q4H PRN ORAL T>100.5 05/06/19 13:00 06/05/19 12:59 Albuterol/ Ipratropium (Albuterol/ Ipratropium) 3 ml Q4H PRN HHN Shortness of Breath 05/06/19 13:00 05/11/19 12:59 Dextrose (Dextrose 50%) 25 ml Q30M PRN IV HYPOGLYCEMIA 05/06/19 20:45 06/05/19 20:44 Dextrose (Dextrose 50%) 50 ml Q30M PRN IV HYPOGLYCEMIA 05/06/19 20:45 06/05/19 20:44 Dextrose/Sodium Chloride 1,000 ml @ 125 mls/hr Q8H IV 05/06/19 18:45 06/05/19 18:44 05/07/19 03:00 Famotidine (Pepcid I.v.) 20 mg Q12HR IVP 05/06/19 21:00 06/05/19 08:59 05/07/19 08:13 Insulin Human Regular (NovoLIN R) 5 units PRN PRN IV BS 200-299 05/06/19 20:45 06/05/19 20:44 Insulin Human Regular (NovoLIN R) 10 units PRN PRN IV BS=>300 05/06/19 20:45 06/05/19 20:44 Insulin Human Regular 100 units/ Sodium Chloride 100 ml @ 0 mls/hr Q24H IV 05/06/19 20:45 06/05/19 20:44 05/06/19 21:05 Lorazepam (Ativan 2mg/ml 1ml) 2 mg Q2H PRN IV agitation 05/06/19 13:00 05/13/19 12:59 Magnesium Sulfate 100 ml @ 100 mls/hr Q1H IVPB 05/07/19 08:15 05/07/19 12:14 Miscellaneous Medication (Insulin Rate Change) 1 ea PRN PRN MISC Per rx protocol 05/06/19 20:45 06/05/19 20:44 05/07/19 06:27 Morphine Sulfate (Morphine Sulfate) 4 mg Q4H PRN IVP Severe Pain (Pain Scale 7-10) 05/06/19 13:00 05/13/19 12:59 05/06/19 13:58 Ondansetron HCl (Zofran) 4 mg Q4H PRN IVP Nausea & Vomiting 05/06/19 13:00 06/05/19 12:59 05/07/19 08:13 Polyethylene Glycol (Miralax) 17 gm DAILYPRN PRN ORAL Constipation 05/07/19 13:00 06/05/19 12:59 GI: Plan Problems: (1) Vomiting (2) DKA, type 1 (3) Hyperglycemia (4) Dehydration (5) Constipation (6) ETOH abuse (7) Diabetes mellitus Plan No plans for GI procedures at this time Symptomatic treatment Zofran as needed, Reglan for persistent vomiting Diabetes management IV p.o. hydration, electrolyte correction Advance diet as tolerated PPI Follow labs Discussed with Dr. Carmen. Thank you for this patient referral, we will follow. The patient was seen and examined at bedside and all new and available data was reviewed in the patients chart. I agree with the above findings, impression and plan. (Patient seen earlier today. Signature stamp does not reflect patient encounter time.). - MD Kayla VelazquezAur[facility] HospitalAr REECE May 07, 2019 10:12
--- NOTE | 2019-05-07 10:33 | Pulmonolgy Critical Care Note ---
Critical Care - Asmt/Plan Problems: (1) DKA, type 1 (2) ETOH abuse Respiratory: monitor respiratory rate, adjust FIO2, CXR Cardiac: continue to monitor HR/BP Renal: decrease IV fluid, check electrolytes Infectious Disease: check cultures Gastrointestinal: continue feedings/current rate Endocrine: monitor blood sugar Hematologic: monitor H/H, transfuse if hgb<8.5 Neurologic: PRN Ativan, keep patient comfortable Prophylaxis: Protonix Disposition: keep in ICU Time Spent (Minutes): 40 Notes Reviewed: renal Discussed with: nurses, consultants, pillowcase folder, other - will check electrolytes in a few hours and try to dc iv insulin Critical Care - Objective Last 24 Hour Vital Signs Date Time Temp Pulse Resp B/P (MAP) Pulse Ox O2 Delivery O2 Flow Rate FiO2 05/07/19 07:25 100 Nasal Cannula 2.0 28 05/07/19 07:00 95 19 86/47 (60) 100 05/07/19 06:00 92 17 94/43 (60) 100 05/07/19 05:00 89 18 92/53 (66) 100 05/07/19 04:45 89 18 102/55 (71) 100 05/07/19 04:00 Nasal Cannula 2.0 05/07/19 04:00 98.3 93 18 80/40 (53) 100 05/07/19 03:00 96 12 98/55 (69) 100 05/07/19 02:00 99 19 95/50 (65) 100 05/07/19 01:00 100 21 102/57 (72) 100 05/07/19 00:00 98.6 97 18 95/56 (69) 100 05/07/19 00:00 Nasal Cannula 2.0 05/06/19 23:22 103 05/06/19 23:00 103 21 94/57 (69) 100 05/06/19 22:00 114 22 96/53 (67) 100 05/06/19 21:00 117 25 95/44 (61) 100 05/06/19 20:03 114 05/06/19 20:00 Nasal Cannula 2.0 05/06/19 20:00 98.5 118 25 93/48 (63) 100 05/06/19 19:58 113 21 100 Nasal Cannula 2.0 28 05/06/19 19:57 100 Nasal Cannula 2.0 28 05/06/19 19:00 114 22 91/54 (66) 100 05/06/19 18:00 116 21 88/51 (63) 100 05/06/19 17:07 117 26 98/56 (70) 100 05/06/19 17:00 98.5 118 22 85/43 (57) 100 05/06/19 16:00 129 05/06/19 16:00 125 25 90/44 (59) 100 05/06/19 15:00 131 31 91/40 (57) 99 05/06/19 14:28 98.3 05/06/19 14:00 135 91/29 (49) 100 05/06/19 13:00 98.4 130 35 90/37 (54) 99 05/06/19 12:00 125 05/06/19 12:00 Room Air 05/06/19 12:00 98.3 124 28 93/54 (67) 100 Status: awake Condition: critical Neck: full ROM Lungs: chest wall tender Heart: HR/BP stable Abdomen: soft Extremities: no C/C/E Accucheck: 132 Critical Care - Subjective ROS Limited/Unobtainable: No Interval Events: feeling better, still FI02: 28 Sputum Amount: None Fluids: D5 1/2 NS 75 cc /hour I&O: Intake and Output 05/06/19 05/07/19 19:00 07:00 Intake Total 795.5 ml 1518.7 ml Output Total 400 ml 1000 ml Balance 395.5 ml 518.7 ml Intake IV Total 795.5 ml 1518.7 ml Output Urine Total 400 ml 1000 ml # Voids 1 1 Labs: Laboratory Tests Test 05/06/19 15:30 05/06/19 18:00 05/07/19 04:35 05/07/19 07:55 Urine Color Pale yellow Urine Appearance Clear Urine pH 5 (4.5-8.0) Urine Specific [place] 1.020 (1.005-1.035) Urine Protein 2+ (NEGATIVE) H Urine Glucose (UA) 4+ (NEGATIVE) H Urine Ketones 4+ (NEGATIVE) H Urine Blood 1+ (NEGATIVE) H Urine Nitrite Negative (NEGATIVE) Urine Bilirubin Negative (NEGATIVE) Urine Urobilinogen Normal MG/DL (0.0-1.0) Urine Leukocyte Esterase Negative (NEGATIVE) Urine RBC 0-2 /HPF (0 - 2) Urine WBC 0 /HPF (0 - 2) Urine Squamous Epithelial Cells Few /LPF (NONE/OCC) Urine Bacteria Occasional /HPF (NONE) Sodium Level 141 MMOL/L (136-145) Potassium Level 4.1 MMOL/L (3.5-5.1) Chloride Level 110 MMOL/L (98-107) H Carbon Dioxide Level 10 MMOL/L (21-32) L Anion Gap 21 mmol/L (5-15) H Blood Urea Nitrogen 13 mg/dL (7-18) Creatinine 1.2 MG/DL (0.55-1.30) Estimat Glomerular Filtration Rate 54.8 mL/min (>60) Glucose Level 139 MG/DL (74-106) #H Calcium Level 8.6 MG/DL (8.5-10.1) Prothrombin Time 12.7 SEC (9.30-11.50) H Prothromb Time International Ratio 1.2 (0.9-1.1) H Activated Partial Thromboplast Time 33 SEC (23-33) Magnesium Level 1.0 MG/DL (1.8-2.4) L Arterial Blood pH 7.358 (7.350-7.450) Arterial Blood Partial Pressure CO2 27.9 mmHg (35.0-45.0) L Arterial Blood Partial Pressure O2 154.0 mmHg (75.0-100.0) H Arterial Blood HCO3 15.3 mmol/L (22.0-26.0) *L Arterial Blood Oxygen Saturation 99.0 % (95-100) Arterial Blood Base Excess -8.7 (-2-2) L Brad Test Positive Test 05/07/19 08:10 White Blood Count 11.7 K/UL (4.8-10.8) H Red Blood Count 3.99 M/UL (4.20-5.40) L Hemoglobin 12.1 G/DL (12.0-16.0) Hematocrit 37.5 % (37.0-47.0) Mean Corpuscular Volume 94 FL (80-99) Mean Corpuscular Hemoglobin 30.4 PG (27.0-31.0) Mean Corpuscular Hemoglobin Concent 32.4 G/DL (32.0-36.0) Red Cell Distribution Width 12.6 % (11.6-14.8) Platelet Count 321 K/UL (150-450) Mean Platelet Volume 5.6 FL (6.5-10.1) L Neutrophils (%) (Auto) 67.0 % (45.0-75.0) Lymphocytes (%) (Auto) 25.1 % (20.0-45.0) Monocytes (%) (Auto) 5.8 % (1.0-10.0) Eosinophils (%) (Auto) 1.2 % (0.0-3.0) Basophils (%) (Auto) 0.9 % (0.0-2.0) Sodium Level 142 MMOL/L (136-145) Potassium Level 3.7 MMOL/L (3.5-5.1) Chloride Level 112 MMOL/L (98-107) H Carbon Dioxide Level 18 MMOL/L (21-32) L Anion Gap 12 mmol/L (5-15) Blood Urea Nitrogen 7 mg/dL (7-18) Creatinine 0.9 MG/DL (0.55-1.30) Estimat Glomerular Filtration Rate > 60 mL/min (>60) Glucose Level 151 MG/DL (74-106) H Calcium Level 8.8 MG/DL (8.5-10.1) Phosphorus Level 1.7 MG/DL (2.5-4.9) L Magnesium Level 1.8 MG/DL (1.8-2.4) Total Bilirubin 0.5 MG/DL (0.2-1.0) Direct Bilirubin < 0.1 MG/DL (0.0-0.3) Aspartate Amino Transf (AST/SGOT) 21 U/L (15-37) Alanine Aminotransferase (ALT/SGPT) 15 U/L (12-78) Alkaline Phosphatase 89 U/L (46-116) Total Protein 6.4 G/DL (6.4-8.2) Albumin 3.0 G/DL (3.4-5.0) L Globulin 3.4 g/dL Albumin/Globulin Ratio 0.9 (1.0-2.7) L Ministerio Coyle MD May 07, 2019 10:33
[2019-05-07] MEDS: Morphine Sulfate 4mg/ml Inj (IV USE ONLY) IVP PRN (10:58)
--- NOTE | 2019-05-07 11:00 | NUR ---
NURSE NOTES: Insulin drip is maintained at 1.5 units/hr for blood glucose of 133 as per Algorithm 2 order/protocol. VS stable. Pt was administered Morphine for severe abdominal pain and headache.
--- NOTE | 2019-05-07 11:27 | NUR ---
CASE MANAGEMENT:REVIEW 05/07/19 SI: DKA. ETOH ABUSE 98.3 95 19 86/47 100% ON 2L/NC WBC+11.7 GLUCOSE+151 PHOS-1.7 PCO2-27.9 HCO3-15.3 IS: INSULIN GTT IV NA PHOS X1 IVF@75/HR IV MAG Q1HRS X4 BAGS IV PEPCID Q12 IV MORPHINE Q4HRS PRN : ICU STATUS PLAN: WEAN OFF INSULIN GTT
[2019-05-07] MEDS ORDERED: Insulin Human Regular 100units/ml 3ml IV PRN (11:45)
--- NOTE | 2019-05-07 12:00 | NUR ---
NURSE NOTES: Insulin drip has been titrated to 0.8 units/hr for blood glucose of 125 as per Algorithm 2 order/protocol. VS stable. Addendum: 05/07/19 at 2025 by FREYA MEIER RN Algorithm 1
--- NOTE | 2019-05-07 12:20 | Diagnostic Imaging Report ---
Indication: Shortness of breath Technique: One view of the chest Comparison: 04/05/2017 Findings: Lungs and pleural spaces are clear. Heart size is normal . No significant change Impression: No acute process
[2019-05-07] MEDS ORDERED: Miralax 17gm pkt ORAL PRN (13:00)
[2019-05-07] MEDS ORDERED: Sodium Phosphate 30 MM in NS 275 ML IV SCH (13:00)
--- NOTE | 2019-05-07 13:00 | NUR ---
NURSE NOTES: Insulin drip has been maintained at 0.8 units/hr for blood glucose of 125 as per Algorithm 2 order/protocol. VS stable. Pt was administered Zofran at 1238 for nausea. Pt is now resting with family at bedside. Addendum: 05/07/19 at 2025 by FREYA MEIER RN Algorithm 1 Addendum: 05/07/19 at 2025 by FREYA MEIER RN Algorithm 1
[2019-05-07 13:19] LABS: ALANINE AMINOTRANSFERASE 13 U/L (12-78); ALBUMIN/GLOBULIN RATIO 0.8 (1.0-2.7); ALKALINE PHOSPHATASE 92 U/L (46-116); ANION GAP 14 mmol/L (5-15); ASPARTATE AMINO TRANSFERASE 23 U/L (15-37); BILIRUBIN,TOTAL 0.5 MG/DL (0.2-1.0); BLOOD UREA NITROGEN 7 mg/dL (7-18); CALCIUM 8.9 MG/DL (8.5-10.1); CARBON DIOXIDE 17 MMOL/L (21-32); CHLORIDE 110 MMOL/L (98-107); CREATININE 0.8 MG/DL (0.55-1.30); POTASSIUM 3.2 MMOL/L (3.5-5.1); SODIUM 141 MMOL/L (136-145)
--- NOTE | 2019-05-07 14:00 | NUR ---
NURSE NOTES: Insulin drip has been titrated to 2 units/hr for blood glucose of 203 as per Algorithm 2 order/protocol. VS stable. Pt is asleep. Addendum: 05/07/19 at 2025 by FREYA MEIER RN Algorithm 1
[2019-05-07] MEDS ORDERED: D5 1/2NS 1000ml IV ONE ×2 (14:08→14:10)
--- NOTE | 2019-05-07 15:00 | NUR ---
NURSE NOTES: Insulin drip has been titrated to 1 unit/hr for blood glucose of 159 as per Algorithm 1 order/protocol. VS stable.
--- NOTE | 2019-05-07 15:49 | Diagnostic Imaging Report ---
Indication: Abdominal tenderness, abdominal pain, nausea, vomiting Technique: Hunt-scale and duplex images of the upper abdomen were obtained Comparison: none Findings: Gallbladder is unremarkable, without stones, wall thickening, nor pericholecystic fluid. Sonographic Taylor's sign is negative. Common bile duct measures 2 mm in diameter. No intrahepatic biliary ductal dilatation. Liver demonstrates normal echogenicity, no focal abnormality. Portal vein and hepatic veins are patent. Pancreas is unremarkable. Spleen is unremarkable. Left kidney measures 11.4 cm in length. Right kidney measures 11.4 cm length. Both kidneys demonstrate normal echogenicity. There is no hydronephrosis. No focal abnormality . Non-aneurysmal abdominal aorta . Impression: Negative
--- NOTE | 2019-05-07 16:00 | NUR ---
NURSE NOTES: Insulin drip has been titrated to 1 unit/hr for blood glucose of 152 as per Algorithm 1 order/protocol. VS stable.
--- NOTE | 2019-05-07 17:00 | NUR ---
NURSE NOTES: Insulin drip has been titrated to 1.2 units/hr for blood glucose of 167 as per Algorithm 1 order/protocol. VS stable. Pt was administered Zofran for nausea. Family remains at bedside.
--- NOTE | 2019-05-07 17:48 | Internal Med Progress Note ---
Subjective Date of Service: May 07, 2019 Physician Name Angel Andres Attending Physician Taco Sampson MD Current Medications Medications (Trade) Dose Ordered Sig/Loc Route PRN Reason Start Time Stop Time Status Last Admin Dose Admin Acetaminophen (Tylenol) 650 mg Q4H PRN ORAL Mild Pain/Temp > 100.5 05/07/19 17:00 06/05/19 12:59 05/07/19 16:59 Albuterol/ Ipratropium (Albuterol/ Ipratropium) 3 ml Q4H PRN HHN Shortness of Breath 05/06/19 13:00 05/11/19 12:59 Dextrose (Dextrose 50%) 25 ml Q30M PRN IV HYPOGLYCEMIA 05/06/19 20:45 06/05/19 20:44 Dextrose (Dextrose 50%) 50 ml Q30M PRN IV HYPOGLYCEMIA 05/06/19 20:45 06/05/19 20:44 Dextrose/Sodium Chloride 1,000 ml @ 75 mls/hr [id number] IV 05/07/19 10:27 06/06/19 10:26 05/07/19 12:13 Famotidine (Pepcid I.v.) 20 mg Q12HR IVP 05/06/19 21:00 06/05/19 08:59 05/07/19 08:13 Insulin Human Regular (NovoLIN R) 5 units PRN PRN IV BS 200-299 05/06/19 20:45 06/05/19 20:44 Insulin Human Regular (NovoLIN R) 10 units PRN PRN IV BS=>300 05/06/19 20:45 06/05/19 20:44 Insulin Human Regular 100 units/ Sodium Chloride 100 ml @ 0 mls/hr Q24H IV 05/07/19 11:53 06/06/19 11:52 05/07/19 12:43 Lorazepam (Ativan 2mg/ml 1ml) 2 mg Q2H PRN IV agitation 05/06/19 13:00 05/13/19 12:59 Miscellaneous Medication (Insulin Rate Change) 1 ea PRN PRN MISC Per rx protocol 05/06/19 20:45 06/05/19 20:44 05/07/19 06:27 Morphine Sulfate (Morphine Sulfate) 4 mg Q4H PRN IVP Severe Pain (Pain Scale 7-10) 05/06/19 13:00 05/13/19 12:59 05/07/19 10:58 Ondansetron HCl (Zofran) 4 mg Q4H PRN IVP Nausea & Vomiting 05/06/19 13:00 06/05/19 12:59 05/07/19 16:59 Polyethylene Glycol (Miralax) 17 gm DAILYPRN PRN ORAL Constipation 05/07/19 13:00 06/05/19 12:59 Sodium Phosphate 30 mm/Sodium Chloride 285 ml @ 47.5 mls/hr ONCE IV 05/07/19 13:00 05/07/19 19:00 05/07/19 12:40 Allergies: Coded Allergies: No Known Allergies (Unverified , 04/05/17) ROS Limited/Unobtainable: No Constitutional: Reports: no symptoms HEENT: Reports: no symptoms Cardiovascular: Reports: no symptoms Respiratory: Reports: no symptoms Gastrointestinal/Abdominal: Reports: abdominal pain, nausea, vomiting Genitourinary: Reports: no symptoms Neurologic/Psychiatric: Reports: no symptoms Subjective 24 YO F admitted with nausea/vomiting and abdominal pain. Now diabetic ketoacidosis. Cover for Int Med-Dr Sampson. ICU Objective Last Vital Signs Date Time Temp Pulse Resp B/P (MAP) Pulse Ox O2 Delivery O2 Flow Rate FiO2 05/07/19 17:29 98.8 05/07/19 17:00 94 18 101/57 (72) 100 05/07/19 09:00 Nasal Cannula 2.0 05/07/19 07:25 28 Laboratory Tests Test 05/06/19 18:00 05/07/19 04:35 05/07/19 07:55 05/07/19 08:10 Sodium Level 141 MMOL/L (136-145) 142 MMOL/L (136-145) Potassium Level 4.1 MMOL/L (3.5-5.1) 3.7 MMOL/L (3.5-5.1) Chloride Level 110 MMOL/L (98-107) H 112 MMOL/L (98-107) H Carbon Dioxide Level 10 MMOL/L (21-32) L 18 MMOL/L (21-32) L Anion Gap 21 mmol/L (5-15) H 12 mmol/L (5-15) Blood Urea Nitrogen 13 mg/dL (7-18) 7 mg/dL (7-18) Creatinine 1.2 MG/DL (0.55-1.30) 0.9 MG/DL (0.55-1.30) Estimat Glomerular Filtration Rate 54.8 mL/min (>60) > 60 mL/min (>60) Glucose Level 139 MG/DL (74-106) #H 151 MG/DL (74-106) H Calcium Level 8.6 MG/DL (8.5-10.1) 8.8 MG/DL (8.5-10.1) Prothrombin Time 12.7 SEC (9.30-11.50) H Prothromb Time International Ratio 1.2 (0.9-1.1) H Activated Partial Thromboplast Time 33 SEC (23-33) Magnesium Level 1.0 MG/DL (1.8-2.4) L 1.8 MG/DL (1.8-2.4) Arterial Blood pH 7.358 (7.350-7.450) Arterial Blood Partial Pressure CO2 27.9 mmHg (35.0-45.0) L Arterial Blood Partial Pressure O2 154.0 mmHg (75.0-100.0) H Arterial Blood HCO3 15.3 mmol/L (22.0-26.0) *L Arterial Blood Oxygen Saturation 99.0 % (95-100) Arterial Blood Base Excess -8.7 (-2-2) L Brad Test Positive White Blood Count 11.7 K/UL (4.8-10.8) H Red Blood Count 3.99 M/UL (4.20-5.40) L Hemoglobin 12.1 G/DL (12.0-16.0) Hematocrit 37.5 % (37.0-47.0) Mean Corpuscular Volume 94 FL (80-99) Mean Corpuscular Hemoglobin 30.4 PG (27.0-31.0) Mean Corpuscular Hemoglobin Concent 32.4 G/DL (32.0-36.0) Red Cell Distribution Width 12.6 % (11.6-14.8) Platelet Count 321 K/UL (150-450) Mean Platelet Volume 5.6 FL (6.5-10.1) L Neutrophils (%) (Auto) 67.0 % (45.0-75.0) Lymphocytes (%) (Auto) 25.1 % (20.0-45.0) Monocytes (%) (Auto) 5.8 % (1.0-10.0) Eosinophils (%) (Auto) 1.2 % (0.0-3.0) Basophils (%) (Auto) 0.9 % (0.0-2.0) Phosphorus Level 1.7 MG/DL (2.5-4.9) L Total Bilirubin 0.5 MG/DL (0.2-1.0) Direct Bilirubin < 0.1 MG/DL (0.0-0.3) Aspartate Amino Transf (AST/SGOT) 21 U/L (15-37) Alanine Aminotransferase (ALT/SGPT) 15 U/L (12-78) Alkaline Phosphatase 89 U/L (46-116) Total Protein 6.4 G/DL (6.4-8.2) Albumin 3.0 G/DL (3.4-5.0) L Globulin 3.4 g/dL Albumin/Globulin Ratio 0.9 (1.0-2.7) L Test 05/07/19 12:50 Sodium Level 141 MMOL/L (136-145) Potassium Level 3.2 MMOL/L (3.5-5.1) L Chloride Level 110 MMOL/L (98-107) H Carbon Dioxide Level 17 MMOL/L (21-32) L Anion Gap 14 mmol/L (5-15) Blood Urea Nitrogen 7 mg/dL (7-18) Creatinine 0.8 MG/DL (0.55-1.30) Estimat Glomerular Filtration Rate > 60 mL/min (>60) Glucose Level 147 MG/DL (74-106) H Calcium Level 8.9 MG/DL (8.5-10.1) Total Bilirubin 0.5 MG/DL (0.2-1.0) Aspartate Amino Transf (AST/SGOT) 23 U/L (15-37) Alanine Aminotransferase (ALT/SGPT) 13 U/L (12-78) Alkaline Phosphatase 92 U/L (46-116) Total Protein 6.8 G/DL (6.4-8.2) Albumin 3.0 G/DL (3.4-5.0) L Globulin 3.8 g/dL Albumin/Globulin Ratio 0.8 (1.0-2.7) L Intake and Output 05/06/19 05/07/19 18:59 06:59 Intake Total 643.5 ml 1545.7 ml Output Total 400 ml 1000 ml Balance 243.5 ml 545.7 ml IV Total 643.5 ml 1545.7 ml Output Urine Total 400 ml 1000 ml # Voids 1 1 Objective PHYSICAL EXAMINATION: GENERAL: The patient awake, responsive. No acute distress. HEAD AND NECK: Pupils are reactive to light. Extraocular movements intact. Neck was supple. No JVD. LUNGS: Good air entry. No wheezing or rales. HEART: S1, S2. Tachycardic. ABDOMEN: Soft. Epigastric tenderness. No rebound tenderness. No fluid shift. EXTREMITIES: No cyanosis, clubbing, edema. NEUROLOGIC: Cranial nerves II through XII grossly intact. Motor is 5/5 and symmetric. Gait was not assessed due to the patient's status. Assessment/Plan Assessment/Plan ASSESSMENT: 1. Acute DKA. 2. Diabetes type 1, uncontrolled. 3. Epigastric pain, abdominal pain. 4. Metabolic acidosis. PLAN: 1. Admit the patient to ICU. 2. We will follow up laboratory. 3. Aggressive IV hydration. 4. Insulin drip. 5. Follow up with Dr. Coyle's recommendation from Critical Care. 6. Discussed with family member at bedside. 7. Ultrasound of abdomen. 8. Chest x-ray. 9. Follow up with culture. 10. At this time, we would hold off on antibiotic therapy until figure out if there is any source of infection. Angel Andres MD May 07, 2019 17:48
--- NOTE | 2019-05-07 18:00 | NUR ---
NURSE NOTES: Insulin drip has been titrated to 2 units/hr for blood glucose of 218 as per Algorithm 1 order/protocol. VS stable. Pt was able to consume 70% of dinner meal. Family remains at bedside. Addendum: 05/07/19 at 2031 by FREYA MEIER RN Plus 5 units IVP per order/protocol
[2019-05-07 18:14] LABS: ANION GAP 16 mmol/L (5-15); BLOOD UREA NITROGEN 5 mg/dL (7-18); CALCIUM 8.9 MG/DL (8.5-10.1); CARBON DIOXIDE 17 MMOL/L (21-32); CHLORIDE 109 MMOL/L (98-107); CREATININE 0.7 MG/DL (0.55-1.30); POTASSIUM 3.4 MMOL/L (3.5-5.1); SODIUM 142 MMOL/L (136-145)
--- NOTE | 2019-05-07 19:00 | NUR ---
NURSE NOTES: Insulin drip was maintained at 2 units/hr for blood glucose of 212 as per Algorithm 1 order/protocol with additional 5 units IVP as per order/protocol. Pt is now asleep in no apparent distress. Tylenol was administered for headache. VS stable.
--- NOTE | 2019-05-07 19:30 | NUR ---
HAND-OFF: Report given to Nicolás PINK. Endorsed plan of care. VS stable. Pt is resting with family at bedside. Addendum: 05/07/19 at 2034 by FREYA MEIER RN Also indorsed to table games shift manager, per Dr Coyle's instructions, Insulin Drip was changed from Algorithm 2 to Algorithm 1 and maintained at Algorithm 1 since 1200 noon today.
--- NOTE | 2019-05-07 19:40 | NUR ---
NURSE NOTES: PATIENT ALERT, ORIENTED X4, DENIED PAIN OR SOB, ON ROOM AIR, O2 SATURATION 100% NOTED, ABDOMEN SOFT, NO N/V NOTED, PERIPHERAL LINE TO BOTH HANDS, INTACT AND PATENT, ONGOING ALGORITHM 1 INSULIN DRIP 2UNIT/HR AND D5W 1/2NS AT 75ML/HR RUNNING STATUS. MADE LOWER BED POSITION, PROVIDED CALL LIGHT WITHIN REACH, WILL CONTINUE TO MONITOR.
--- NOTE | 2019-05-07 19:58 | NUR ---
NURSE NOTES: CALLED DR. JEFFERY REGARDING VERIFICATION ORDER OF INSULIN DRIP ALGORITHM THAT LEFT MESSAGE.
--- NOTE | 2019-05-07 20:00 | Consultation ---
DATE OF CONSULTATION: 05/07/2019 ENDOCRINOLOGY CONSULTATION CONSULTING PHYSICIAN: Josh London M.D. REFERRING PHYSICIAN: Taco Sampson M.D. REASON FOR CONSULTATION: Diabetic ketoacidosis. HISTORY OF PRESENT ILLNESS: The patient is a 24-year-old female with history of type 1 diabetes since the age of 11 on Lantus 15 units daily and Humalog 5 units before each meal, who presented to the hospital with nausea, vomiting, abdominal discomfort, and headache, was found to be in diabetic ketoacidosis, admitted to the ICU. The patient's anion gap has been followed and has not closed yet. PAST MEDICAL HISTORY: Type 1 diabetes. PAST SURGICAL HISTORY: None. ALLERGIES TO MEDICATIONS: None. MEDICATIONS AT HOME: As above. SOCIAL HISTORY: No smoking, alcohol, or drug use. FAMILY HISTORY: Negative for diabetes. REVIEW OF SYSTEMS: As per history of present illness. LABORATORY DATA: Sodium 142, potassium 3.4, chloride 109, bicarb 17, BUN 5, creatinine 0.72, glucose 300. PHYSICAL EXAMINATION: VITAL SIGNS: Blood pressure is 100/60, pulse of 80, temperature 98.2, respiratory rate 18. HEENT: Pupils are equal and reactive to light. Sclerae are anicteric. NECK: No JVD. No thyromegaly. No bruits. LUNGS: Clear. HEART: Regular rate and rhythm. ABDOMEN: Positive bowel sounds. EXTREMITIES: No clubbing, cyanosis, or edema. DIAGNOSES: 1. Diabetic ketoacidosis. 2. Type 1 diabetes, out of control. PLAN: 1. Continue insulin drip until the anion gap is closed. 2. Continue IV fluids. 3. Convert to subcutaneous insulin therapy Levemir and NovoLog once the gap is closed. 4. We will follow the patient during hospital stay. Thank you, Dr. Sampson, for the courtesy of this consultation. Josh London M.D. DR: Rolly JOB#: [id number] CC: HUY
--- NOTE | 2019-05-07 22:05 | NUR ---
NURSE NOTES: CALLED DR. REYNAGA REGARDING INSULIN DRIP ORDER VERIFICATION THAT RECEIVED NEW ORDER AND CARRIED OUT.
[2019-05-08] VITALS (15 sets, daily range): BP systolic 95–129; BP diastolic 53–90
--- NOTE | 2019-05-08 00:06 | NUR ---
NURSE NOTES: PATIENT COMPLAINED HEADACHE, GIVEN TYLENOL 650MG BY PO FOR PAIN PRN ORDERED, WILL CONTINUE TO MONITOR.
[2019-05-08] MEDS: Insulin Rate Change 1 Each MISC PRN ×5 (00:55→06:01)
--- NOTE | 2019-05-08 01:14 | NUR ---
NURSE NOTES: PATIENT ASLEEP STATUS, NO PAIN OR DISTRESS NOTED.
--- NOTE | 2019-05-08 03:30 | NUR ---
NURSE NOTES: ASLEEP STATUS, NO DISTRESS NOTED AT THIS TIME.
--- NOTE | 2019-05-08 04:24 | NUR ---
NURSE NOTES: PATIENT VOMITED, DARK GREENISH DISCHARGE OUTED, NO PROJECTILE VOMIT, GIVEN ZOFRAN 4MG BY IVP PRN ORDERED, WILL CONTINUE TO MONITOR.
[2019-05-08 05:52] LABS: ALANINE AMINOTRANSFERASE 13 U/L (12-78); ALBUMIN 2.9 G/DL (3.4-5.0); ALBUMIN/GLOBULIN RATIO 0.9 (1.0-2.7); ALKALINE PHOSPHATASE 87 U/L (46-116); ANION GAP 11 mmol/L (5-15); ASPARTATE AMINO TRANSFERASE 23 U/L (15-37); BILIRUBIN,TOTAL 0.5 MG/DL (0.2-1.0); BLOOD UREA NITROGEN 4 mg/dL (7-18); CALCIUM 8.6 MG/DL (8.5-10.1); CARBON DIOXIDE 20 MMOL/L (21-32); CHLORIDE 106 MMOL/L (98-107); CREATININE 0.7 MG/DL (0.55-1.30); PHOSPHORUS 2.4 MG/DL (2.5-4.9); POTASSIUM 2.8 MMOL/L (3.5-5.1); SODIUM 138 MMOL/L (136-145)
[2019-05-08 06:05] LABS: BASOPHILS % (AUTO) 1.1 % (0.0-2.0); EOSINOPHILS % (AUTO) 3.4 % (0.0-3.0); HEMATOCRIT 37.8 % (37.0-47.0); HEMOGLOBIN 12.6 G/DL (12.0-16.0); LYMPHOCYTES % (AUTO) 36.4 % (20.0-45.0); MEAN CORPUSCULAR VOLUME 92 FL (80-99); MONOCYTES % (AUTO) 8.9 % (1.0-10.0); NEUTROPHILS % (AUTO) 50.3 % (45.0-75.0); PLATELET COUNT 298 K/UL (150-450); RED BLOOD COUNT 4.12 M/UL (4.20-5.40); RED CELL DISTRIBUTION WIDTH 12.1 % (11.6-14.8); WHITE BLOOD COUNT 8.1 K/UL (4.8-10.8)
--- NOTE | 2019-05-08 06:25 | NUR ---
NURSE NOTES: NO N/V NOTED A THIS TIME, ASLEEP STATUS.
--- NOTE | 2019-05-08 07:06 | General Progress Note ---
Assessment/Plan Problem List: (1) DKA, type 1 ICD Codes: E10.10 - Type 1 diabetes mellitus with ketoacidosis without coma SNOMED: 12511632, [id number] (2) Diabetes mellitus ICD Codes: E11.9 - Type 2 diabetes mellitus without complications SNOMED: 00988857 Assessment/Plan: DC insulin gtt start Levemir 15 units daily start Novolog 5 units ac tid start NISS ac / hs change IVF to NS + 20 meq KCL at 100 cc/hour replete electrolytes Subjective Allergies: Coded Allergies: No Known Allergies (Unverified , 04/05/17) All Systems: reviewed and negative except above Subjective events noted AG is closed Item Value Date Time Bedside Blood Glucose 136 mg/dl H 05/08/19 0601 Bedside Blood Glucose 134 mg/dl H 05/08/19 0256 Bedside Blood Glucose 157 mg/dl H 05/07/19 2255 Bedside Blood Glucose 218 mg/dl H 05/07/19 1800 Bedside Blood Glucose 203 mg/dl H 05/07/19 1400 Bedside Blood Glucose 137 mg/dl H 05/07/19 1000 Objective Last 24 Hour Vital Signs Date Time Temp Pulse Resp B/P (MAP) Pulse Ox O2 Delivery O2 Flow Rate FiO2 05/08/19 06:00 69 14 109/66 (80) 100 05/08/19 05:00 68 18 115/73 (87) 100 05/08/19 04:00 Room Air 05/08/19 04:00 97.7 89 16 113/89 (97) 100 05/08/19 03:23 120 05/08/19 03:00 73 18 101/64 (76) 100 05/08/19 02:00 69 16 108/73 (85) 100 05/08/19 01:00 78 16 112/75 (87) 100 05/08/19 00:00 98.1 73 18 99/53 (68) 100 05/08/19 00:00 Room Air 05/07/19 23:05 119 05/07/19 23:00 85 18 100/54 (69) 100 05/07/19 22:00 90 18 89/52 (64) 100 05/07/19 21:00 93 18 91/45 (60) 100 05/07/19 20:00 98.0 91 18 116/78 (91) 100 05/07/19 20:00 Room Air 05/07/19 19:08 108 20 100 Nasal Cannula 2.0 28 05/07/19 19:08 100 Nasal Cannula 2.0 28 05/07/19 19:00 97 19 102/62 (75) 100 05/07/19 18:00 106 19 94/52 (66) 100 05/07/19 17:29 98.8 05/07/19 17:00 94 18 101/57 (72) 100 05/07/19 16:00 93 05/07/19 16:00 98.9 94 18 102/62 (75) 100 05/07/19 15:00 96 18 108/66 (80) 100 05/07/19 14:00 103 21 101/58 (72) 100 05/07/19 13:00 94 17 95/62 (73) 100 05/07/19 12:00 93 05/07/19 12:00 98.8 94 20 97/59 (72) 100 05/07/19 11:28 98.3 05/07/19 11:00 90 18 94/51 (65) 100 05/07/19 10:00 94 20 88/48 (61) 100 05/07/19 09:00 Nasal Cannula 2.0 05/07/19 09:00 97 21 104/58 (73) 100 05/07/19 08:00 98.5 86 16 95/49 (64) 100 05/07/19 08:00 85 05/07/19 07:25 100 Nasal Cannula 2.0 28 Intake and Output 05/07/19 05/08/19 19:00 07:00 Intake Total 1832.0 ml 1187.8 ml Output Total 900 ml 150 ml Balance 932.0 ml 1037.8 ml Intake Oral 500 ml 350 ml IV Total 1332.0 ml 837.8 ml Output Urine Total 900 ml Emesis 150 ml # Voids 2 Laboratory Tests 05/07/19 07:55: Arterial Blood pH 7.358, Arterial Blood Partial Pressure CO2 27.9L, Arterial Blood Partial Pressure O2 154.0H, Arterial Blood HCO3 15.3*L, Arterial Blood Oxygen Saturation 99.0, Arterial Blood Base Excess -8.7L, Brad Test Positive 05/07/19 08:10: White Blood Count 11.7H, Red Blood Count 3.99L, Hemoglobin 12.1, Hematocrit 37.5 , Mean Corpuscular Volume 94, Mean Corpuscular Hemoglobin 30.4, Mean Corpuscular Hemoglobin Concent 32.4, Red Cell Distribution Width 12.6, Platelet Count 321, Mean Platelet Volume 5.6L, Neutrophils (%) (Auto) 67.0, Lymphocytes ( %) (Auto) 25.1, Monocytes (%) (Auto) 5.8, Eosinophils (%) (Auto) 1.2, Basophils (%) (Auto) 0.9, Sodium Level 142, Potassium Level 3.7, Chloride Level 112H, Carbon Dioxide Level 18L, Anion Gap 12, Blood Urea Nitrogen 7, Creatinine 0.9, Estimat Glomerular Filtration Rate > 60, Glucose Level 151H, Calcium Level 8.8, Phosphorus Level 1.7L, Magnesium Level 1.8, Total Bilirubin 0.5, Direct Bilirubin < 0.1, Aspartate Amino Transf (AST/SGOT) 21, Alanine Aminotransferase (ALT/SGPT) 15, Alkaline Phosphatase 89, Total Protein 6.4, Albumin 3.0L, Globulin 3.4, Albumin/Globulin Ratio 0.9L 05/07/19 12:50: Sodium Level 141, Potassium Level 3.2L, Chloride Level 110H, Carbon Dioxide Level 17L, Anion Gap 14, Blood Urea Nitrogen 7, Creatinine 0.8, Estimat Glomerular Filtration Rate > 60, Glucose Level 147H, Calcium Level 8.9, Total Bilirubin 0.5, Aspartate Amino Transf (AST/SGOT) 23, Alanine Aminotransferase ( ALT/SGPT) 13, Alkaline Phosphatase 92, Total Protein 6.8, Albumin 3.0L, Globulin 3.8, Albumin/Globulin Ratio 0.8L 05/07/19 17:43: Sodium Level 142, Potassium Level 3.4L, Chloride Level 109H, Carbon Dioxide Level 17L, Anion Gap 16H, Blood Urea Nitrogen 5L, Creatinine 0.7, Estimat Glomerular Filtration Rate > 60, Glucose Level 201H, Calcium Level 8.9 05/08/19 04:25: White Blood Count 8.1, Red Blood Count 4.12L, Hemoglobin 12.6, Hematocrit 37.8, Mean Corpuscular Volume 92, Mean Corpuscular Hemoglobin 30.6, Mean Corpuscular Hemoglobin Concent 33.4, Red Cell Distribution Width 12.1, Platelet Count 298, Mean Platelet Volume 5.8L, Neutrophils (%) (Auto) 50.3, Lymphocytes (%) (Auto) 36.4, Monocytes (%) (Auto) 8.9, Eosinophils (%) (Auto) 3.4H, Basophils (%) (Auto ) 1.1, Erythrocyte Sedimentation Rate [Pending], Sodium Level 138, Potassium Level 2.8L, Chloride Level 106, Carbon Dioxide Level 20L, Anion Gap 11, Blood Urea Nitrogen 4L, Creatinine 0.7, Estimat Glomerular Filtration Rate > 60, Glucose Level 149H, Calcium Level 8.6, Phosphorus Level 2.4L, Magnesium Level 1.6L, Total Bilirubin 0.5, Aspartate Amino Transf (AST/SGOT) 23, Alanine Aminotransferase (ALT/SGPT) 13, Alkaline Phosphatase 87, C-Reactive Protein, Quantitative 1.8H, Total Protein 6.3L, Albumin 2.9L, Globulin 3.4, Albumin/ Globulin Ratio 0.9L Height (Feet): 5 Height (Inches): 0.00 Weight (Pounds): 133 General Appearance: no apparent distress Neck: normal alignment Cardiovascular: normal rate Respiratory/Chest: lungs clear Abdomen: normal bowel sounds Pelvis: normal external exam Edema: no edema noted Arm (L), no edema noted Arm (R), no edema noted Leg (L), no edema noted Leg (R), no edema noted Pedal (L), no edema noted Pedal (R), no edema noted Generalized Objective Current Medications Medications (Trade) Dose Ordered Sig/Loc Route PRN Reason Start Time Stop Time Status Last Admin Dose Admin Acetaminophen (Tylenol) 650 mg Q4H PRN ORAL Mild Pain/Temp > 100.5 05/07/19 17:00 06/05/19 12:59 05/08/19 00:06 Albuterol/ Ipratropium (Albuterol/ Ipratropium) 3 ml Q4H PRN HHN Shortness of Breath 05/06/19 13:00 05/11/19 12:59 Dextrose (Dextrose 50%) 25 ml Q30M PRN IV HYPOGLYCEMIA 05/06/19 20:45 06/05/19 20:44 Dextrose (Dextrose 50%) 50 ml Q30M PRN IV HYPOGLYCEMIA 05/06/19 20:45 06/05/19 20:44 Dextrose/Sodium Chloride 1,000 ml @ 75 mls/hr [id number] IV 05/07/19 10:27 06/06/19 10:26 05/07/19 23:59 Famotidine (Pepcid I.v.) 20 mg Q12HR IVP 05/06/19 21:00 06/05/19 08:59 05/07/19 20:49 Insulin Human Regular (NovoLIN R) 5 units PRN PRN IV BS 200-299 05/06/19 20:45 06/05/19 20:44 Insulin Human Regular (NovoLIN R) 10 units PRN PRN IV BS=>300 05/06/19 20:45 06/05/19 20:44 Insulin Human Regular 100 units/ Sodium Chloride 100 ml @ 0 mls/hr Q24H IV 05/07/19 11:53 06/06/19 11:52 05/07/19 12:43 Lorazepam (Ativan 2mg/ml 1ml) 2 mg Q2H PRN IV agitation 05/06/19 13:00 05/13/19 12:59 Miscellaneous Medication (Insulin Rate Change) 1 ea PRN PRN MISC Per rx protocol 05/06/19 20:45 06/05/19 20:44 05/08/19 06:01 Morphine Sulfate (Morphine Sulfate) 4 mg Q4H PRN IVP Severe Pain (Pain Scale 7-10) 05/06/19 13:00 05/13/19 12:59 05/07/19 10:58 Ondansetron HCl (Zofran) 4 mg Q4H PRN IVP Nausea & Vomiting 05/06/19 13:00 06/05/19 12:59 05/08/19 04:24 Polyethylene Glycol (Miralax) 17 gm DAILYPRN PRN ORAL Constipation 05/07/19 13:00 06/05/19 12:59 Josh London MD May 08, 2019 07:06
--- NOTE | 2019-05-08 07:10 | NUR ---
NURSE NOTES: Received pt from JOESPH Monzon. Patient is alert and oriented x3, able to make needs known. C/O of headache 8/10 on pain scale. patient requests Tylenol PRN. Denies nausea or vomiting at this time. Sinus rhythm on language pathologist. Patient is on RA, breathing is even and unlabored. Assisted patient to bedside commode and noticed patient was bleeding vaginally. Says she is on control but bleeds about 5-7 days a month anyways. Complete linen change and gave her a pad and patient wore her own underwear. Afebrile. Discontinued insulin drip per Dr. London. See order history for new orders. Last BS 127 mg/dl. Patient is able to void on her own. IV sites on RH 22G and LH 24G, complaint of burning sensation. D51/2NS@75ml/hr stopped. Will reassess and replace if needed. Bed locked alarmed and in lowest position. Will continue plan of care.
--- NOTE | 2019-05-08 07:22 | NUR ---
HAND-OFF: Report given to JOESPH AGUILERA.
[2019-05-08] MEDS ORDERED: NS w/KCl 20mEq 1000ml 1,000 ML IV SCH (08:00)
[2019-05-08] MEDS: NovoLOG Insulin Flexpen SUBQ SCH ×3 (08:50→16:50)
[2019-05-08] MEDS ORDERED: Levemir Flexpen SUBQ SCH (09:00)
--- NOTE | 2019-05-08 09:30 | NUR ---
NURSE NOTES: Tolerated 50% of breakfast meal. Reinforced education regarding diabetic diet. potassium 2.[address] London, see order history. Received new IVF orders, NS with 20meq kcl@100ml/hr.
--- NOTE | 2019-05-08 10:17 | NUR ---
Social Service Note SW met with patient to obtain history. Patient is alert, oriented and verbally responsive. Patient states the night before admission she went out drinking. Patient was seen in ER and was discharge home. Patient states she called 911. Patient states she didn't take her medications because she felt so sick. Patient states she has blood sugar medication and accu check machine at home. Patient will require prescriptions if there is a change in home medications. Follow up appointment arranged for MondayMay 10 at 845am. Patient's friend will provided transportation home. Will continue to be available as needed.
[2019-05-08] MEDS ORDERED: Morphine Sulfate 2mg/ml Inj(IV/IM USE ONLY) IVP PRN ×2 (10:18→12:35)
--- NOTE | 2019-05-08 10:21 | NUR ---
CASE MANAGEMENT:REVIEW 05/08/19 SI: DKA. ETOH ABUSE 98.6 84 15 95/55 100% ON RA ESR+32 K-2.8 PHOS-2.4 MAG-1.6 IS: IV K PHOS X1 IV KCL Q1HRS X4 BAGS IVF+KCL@100/HR IV PEPCID Q12 INSULIN SQ TID LEVEMIR SQ QD IV MORPHINE Q4HRS PRN : TRANSFER FROM ICU TO MED/SURG DCP: FROM HOME
--- NOTE | 2019-05-08 10:25 | Pulmonolgy Critical Care Note ---
Critical Care - Asmt/Plan Problems: (1) DKA, type 1 (2) ETOH abuse Assessment & Plan: off insulin drip, Respiratory: monitor respiratory rate Cardiac: continue to monitor HR/BP Renal: F/U I&O, check electrolytes Infectious Disease: check cultures Endocrine: d/c insulin drip Hematologic: monitor H/H Neurologic: keep patient comfortable Discussed with: nurses Critical Care - Objective Last 24 Hour Vital Signs Date Time Temp Pulse Resp B/P (MAP) Pulse Ox O2 Delivery O2 Flow Rate FiO2 05/08/19 09:00 74 21 118/64 (82) 100 05/08/19 08:00 98.6 84 15 110/71 (84) 100 05/08/19 07:00 67 18 95/55 (68) 100 05/08/19 06:00 69 14 109/66 (80) 100 05/08/19 05:00 68 18 115/73 (87) 100 05/08/19 04:00 Room Air 05/08/19 04:00 97.7 89 16 113/89 (97) 100 05/08/19 03:23 120 05/08/19 03:00 73 18 101/64 (76) 100 05/08/19 02:00 69 16 108/73 (85) 100 05/08/19 01:00 78 16 112/75 (87) 100 05/08/19 00:00 98.1 73 18 99/53 (68) 100 05/08/19 00:00 Room Air 05/07/19 23:05 119 05/07/19 23:00 85 18 100/54 (69) 100 05/07/19 22:00 90 18 89/52 (64) 100 05/07/19 21:00 93 18 91/45 (60) 100 05/07/19 20:00 98.0 91 18 116/78 (91) 100 05/07/19 20:00 Room Air 05/07/19 19:08 108 20 100 Nasal Cannula 2.0 28 05/07/19 19:08 100 Nasal Cannula 2.0 28 05/07/19 19:00 97 19 102/62 (75) 100 05/07/19 18:00 106 19 94/52 (66) 100 05/07/19 17:29 98.8 05/07/19 17:00 94 18 101/57 (72) 100 05/07/19 16:00 93 05/07/19 16:00 98.9 94 18 102/62 (75) 100 05/07/19 15:00 96 18 108/66 (80) 100 05/07/19 14:00 103 21 101/58 (72) 100 05/07/19 13:00 94 17 95/62 (73) 100 05/07/19 12:00 93 05/07/19 12:00 98.8 94 20 97/59 (72) 100 05/07/19 11:28 98.3 05/07/19 11:00 90 18 94/51 (65) 100 Status: awake Condition: critical Neck: full ROM Lungs: clear Heart: HR/BP stable Abdomen: soft, non-tender Extremities: no C/C/E Decubiti: location Accucheck: 218 Critical Care - Subjective ROS Limited/Unobtainable: Yes Condition: critical EKG Rhythm: Sinus Rhythm FI02: 28 Sputum Amount: None I&O: Intake and Output 05/07/19 05/08/19 19:00 07:00 Intake Total 1832.0 ml 1263.6 ml Output Total 900 ml 1000 ml Balance 932.0 ml 263.6 ml Intake Oral 500 ml 350 ml IV Total 1332.0 ml 913.6 ml Output Urine Total 900 ml 700 ml Emesis 300 ml # Voids 2 Labs: Laboratory Tests Test 05/07/19 12:50 05/07/19 17:43 05/08/19 04:25 Sodium Level 141 MMOL/L (136-145) 142 MMOL/L (136-145) 138 MMOL/L (136-145) Potassium Level 3.2 MMOL/L (3.5-5.1) L 3.4 MMOL/L (3.5-5.1) L 2.8 MMOL/L (3.5-5.1) L Chloride Level 110 MMOL/L (98-107) H 109 MMOL/L (98-107) H 106 MMOL/L (98-107) Carbon Dioxide Level 17 MMOL/L (21-32) L 17 MMOL/L (21-32) L 20 MMOL/L (21-32) L Anion Gap 14 mmol/L (5-15) 16 mmol/L (5-15) H 11 mmol/L (5-15) Blood Urea Nitrogen 7 mg/dL (7-18) 5 mg/dL (7-18) L 4 mg/dL (7-18) L Creatinine 0.8 MG/DL (0.55-1.30) 0.7 MG/DL (0.55-1.30) 0.7 MG/DL (0.55-1.30) Estimat Glomerular Filtration Rate > 60 mL/min (>60) > 60 mL/min (>60) > 60 mL/min (>60) Glucose Level 147 MG/DL (74-106) H 201 MG/DL (74-106) H 149 MG/DL (74-106) H Calcium Level 8.9 MG/DL (8.5-10.1) 8.9 MG/DL (8.5-10.1) 8.6 MG/DL (8.5-10.1) Total Bilirubin 0.5 MG/DL (0.2-1.0) 0.5 MG/DL (0.2-1.0) Aspartate Amino Transf (AST/SGOT) 23 U/L (15-37) 23 U/L (15-37) Alanine Aminotransferase (ALT/SGPT) 13 U/L (12-78) 13 U/L (12-78) Alkaline Phosphatase 92 U/L (46-116) 87 U/L (46-116) Total Protein 6.8 G/DL (6.4-8.2) 6.3 G/DL (6.4-8.2) L Albumin 3.0 G/DL (3.4-5.0) L 2.9 G/DL (3.4-5.0) L Globulin 3.8 g/dL 3.4 g/dL Albumin/Globulin Ratio 0.8 (1.0-2.7) L 0.9 (1.0-2.7) L White Blood Count 8.1 K/UL (4.8-10.8) Red Blood Count 4.12 M/UL (4.20-5.40) L Hemoglobin 12.6 G/DL (12.0-16.0) Hematocrit 37.8 % (37.0-47.0) Mean Corpuscular Volume 92 FL (80-99) Mean Corpuscular Hemoglobin 30.6 PG (27.0-31.0) Mean Corpuscular Hemoglobin Concent 33.4 G/DL (32.0-36.0) Red Cell Distribution Width 12.1 % (11.6-14.8) Platelet Count 298 K/UL (150-450) Mean Platelet Volume 5.8 FL (6.5-10.1) L Neutrophils (%) (Auto) 50.3 % (45.0-75.0) Lymphocytes (%) (Auto) 36.4 % (20.0-45.0) Monocytes (%) (Auto) 8.9 % (1.0-10.0) Eosinophils (%) (Auto) 3.4 % (0.0-3.0) H Basophils (%) (Auto) 1.1 % (0.0-2.0) Erythrocyte Sedimentation Rate 32 MM/HR (0-20) H Phosphorus Level 2.4 MG/DL (2.5-4.9) L Magnesium Level 1.6 MG/DL (1.8-2.4) L C-Reactive Protein, Quantitative 1.8 mg/dL (0.00-0.90) H Ministerio Coyle MD May 08, 2019 10:25
--- NOTE | 2019-05-08 10:56 | NUR ---
NURSE NOTES: Patient requested KCL be changed to PO, patient complained it irritates her. Received orders per Dr. Coyle to change 40Meq KCL IV to 40meq K-Due PO x1. Read back given and verified. IV on right hand removed, replaced with 24G asymptomatic and patient does not complain of pain.
--- NOTE | 2019-05-08 11:23 | GI Progress Note ---
Assessment/Plan Problems: (1) Vomiting ICD Codes: R11.10 - Vomiting, unspecified SNOMED: 766365405 (2) Constipation ICD Codes: K59.00 - Constipation, unspecified SNOMED: 18638951 (3) DKA, type 1 ICD Codes: E10.10 - Type 1 diabetes mellitus with ketoacidosis without coma SNOMED: 96920348, 806325406 (4) Diabetes mellitus ICD Codes: E11.9 - Type 2 diabetes mellitus without complications SNOMED: 44718563 (5) Hyperglycemia ICD Codes: R73.9 - Hyperglycemia, unspecified SNOMED: 60701324 (6) Dehydration ICD Codes: E86.0 - Dehydration SNOMED: 93036763 (7) ETOH abuse ICD Codes: F10.10 - Alcohol abuse, uncomplicated SNOMED: 63422867 Status: stable Status Narrative Discussed with Dr. Carmen. Assessment/Plan No plans for GI procedures at this time Symptomatic treatment Zofran as needed, Reglan for persistent vomiting Diabetes management IV p.o. hydration, electrolyte correction Advance diet as tolerated PPI Follow labs Discussed with Dr. Carmen. Thank you for this patient referral, we will follow. Subjective Gastrointestinal/Abdominal: Reports: no symptoms Objective Last 24 Hour Vital Signs Date Time Temp Pulse Resp B/P (MAP) Pulse Ox O2 Delivery O2 Flow Rate FiO2 05/08/19 10:00 72 21 118/62 (80) 100 05/08/19 09:18 97.7 05/08/19 09:00 Room Air 05/08/19 09:00 74 21 118/64 (82) 100 05/08/19 08:00 74 05/08/19 08:00 98.6 84 15 110/71 (84) 100 05/08/19 07:00 67 18 95/55 (68) 100 05/08/19 06:00 69 14 109/66 (80) 100 05/08/19 05:00 68 18 115/73 (87) 100 05/08/19 04:00 Room Air 05/08/19 04:00 97.7 89 16 113/89 (97) 100 05/08/19 03:23 120 05/08/19 03:00 73 18 101/64 (76) 100 05/08/19 02:00 69 16 108/73 (85) 100 05/08/19 01:00 78 16 112/75 (87) 100 05/08/19 00:00 98.1 73 18 99/53 (68) 100 05/08/19 00:00 Room Air 05/07/19 23:05 119 05/07/19 23:00 85 18 100/54 (69) 100 05/07/19 22:00 90 18 89/52 (64) 100 05/07/19 21:00 93 18 91/45 (60) 100 05/07/19 20:00 98.0 91 18 116/78 (91) 100 05/07/19 20:00 Room Air 05/07/19 19:08 108 20 100 Nasal Cannula 2.0 28 05/07/19 19:08 100 Nasal Cannula 2.0 28 05/07/19 19:00 97 19 102/62 (75) 100 05/07/19 18:00 106 19 94/52 (66) 100 05/07/19 17:00 94 18 101/57 (72) 100 05/07/19 16:00 93 05/07/19 16:00 98.9 94 18 102/62 (75) 100 05/07/19 15:00 96 18 108/66 (80) 100 05/07/19 14:00 103 21 101/58 (72) 100 05/07/19 13:00 94 17 95/62 (73) 100 05/07/19 12:00 93 05/07/19 12:00 98.8 94 20 97/59 (72) 100 05/07/19 11:28 98.3 Intake and Output 05/07/19 05/08/19 19:00 07:00 Intake Total 1832.0 ml 1263.6 ml Output Total 900 ml 1000 ml Balance 932.0 ml 263.6 ml Intake Oral 500 ml 350 ml IV Total 1332.0 ml 913.6 ml Output Urine Total 900 ml 700 ml Emesis 300 ml # Voids 2 Laboratory Tests Test 05/07/19 12:50 05/07/19 17:43 05/08/19 04:25 Sodium Level 141 MMOL/L (136-145) 142 MMOL/L (136-145) 138 MMOL/L (136-145) Potassium Level 3.2 MMOL/L (3.5-5.1) L 3.4 MMOL/L (3.5-5.1) L 2.8 MMOL/L (3.5-5.1) L Chloride Level 110 MMOL/L (98-107) H 109 MMOL/L (98-107) H 106 MMOL/L (98-107) Carbon Dioxide Level 17 MMOL/L (21-32) L 17 MMOL/L (21-32) L 20 MMOL/L (21-32) L Anion Gap 14 mmol/L (5-15) 16 mmol/L (5-15) H 11 mmol/L (5-15) Blood Urea Nitrogen 7 mg/dL (7-18) 5 mg/dL (7-18) L 4 mg/dL (7-18) L Creatinine 0.8 MG/DL (0.55-1.30) 0.7 MG/DL (0.55-1.30) 0.7 MG/DL (0.55-1.30) Estimat Glomerular Filtration Rate > 60 mL/min (>60) > 60 mL/min (>60) > 60 mL/min (>60) Glucose Level 147 MG/DL (74-106) H 201 MG/DL (74-106) H 149 MG/DL (74-106) H Calcium Level 8.9 MG/DL (8.5-10.1) 8.9 MG/DL (8.5-10.1) 8.6 MG/DL (8.5-10.1) Total Bilirubin 0.5 MG/DL (0.2-1.0) 0.5 MG/DL (0.2-1.0) Aspartate Amino Transf (AST/SGOT) 23 U/L (15-37) 23 U/L (15-37) Alanine Aminotransferase (ALT/SGPT) 13 U/L (12-78) 13 U/L (12-78) Alkaline Phosphatase 92 U/L (46-116) 87 U/L (46-116) Total Protein 6.8 G/DL (6.4-8.2) 6.3 G/DL (6.4-8.2) L Albumin 3.0 G/DL (3.4-5.0) L 2.9 G/DL (3.4-5.0) L Globulin 3.8 g/dL 3.4 g/dL Albumin/Globulin Ratio 0.8 (1.0-2.7) L 0.9 (1.0-2.7) L White Blood Count 8.1 K/UL (4.8-10.8) Red Blood Count 4.12 M/UL (4.20-5.40) L Hemoglobin 12.6 G/DL (12.0-16.0) Hematocrit 37.8 % (37.0-47.0) Mean Corpuscular Volume 92 FL (80-99) Mean Corpuscular Hemoglobin 30.6 PG (27.0-31.0) Mean Corpuscular Hemoglobin Concent 33.4 G/DL (32.0-36.0) Red Cell Distribution Width 12.1 % (11.6-14.8) Platelet Count 298 K/UL (150-450) Mean Platelet Volume 5.8 FL (6.5-10.1) L Neutrophils (%) (Auto) 50.3 % (45.0-75.0) Lymphocytes (%) (Auto) 36.4 % (20.0-45.0) Monocytes (%) (Auto) 8.9 % (1.0-10.0) Eosinophils (%) (Auto) 3.4 % (0.0-3.0) H Basophils (%) (Auto) 1.1 % (0.0-2.0) Erythrocyte Sedimentation Rate 32 MM/HR (0-20) H Phosphorus Level 2.4 MG/DL (2.5-4.9) L Magnesium Level 1.6 MG/DL (1.8-2.4) L C-Reactive Protein, Quantitative 1.8 mg/dL (0.00-0.90) H Height (Feet): 5 Height (Inches): 0.00 Weight (Pounds): 133 General Appearance: WD/WN, no apparent distress, alert Cardiovascular: normal rate Respiratory/Chest: normal breath sounds, no respiratory distress Abdominal Exam: normal bowel sounds, non tender, soft Extremities: normal range of motion, non-tender Irma Garza NP May 08, 2019 11:23
[2019-05-08] MEDS ORDERED: Potassium Phosphate 20 MM in NS 275 ML IV SCH (12:00)
--- NOTE | 2019-05-08 12:10 | Internal Med Progress Note ---
Subjective Date of Service: May 08, 2019 Physician Name Angel Andres Attending Physician Taco Sampson MD Current Medications Medications (Trade) Dose Ordered Sig/Loc Route PRN Reason Start Time Stop Time Status Last Admin Dose Admin Acetaminophen (Tylenol) 650 mg Q4H PRN ORAL Mild Pain/Temp > 100.5 05/07/19 17:00 06/05/19 12:59 05/08/19 08:48 Albuterol/ Ipratropium (Albuterol/ Ipratropium) 3 ml Q4H PRN HHN Shortness of Breath 05/06/19 13:00 05/11/19 12:59 Dextrose (Dextrose 50%) 25 ml Q30M PRN IV Hypoglycemia 05/08/19 07:15 06/07/19 07:14 Dextrose (Dextrose 50%) 50 ml Q30M PRN IV Hypoglycemia 05/08/19 07:15 06/07/19 07:14 Famotidine (Pepcid I.v.) 20 mg Q12HR IVP 05/06/19 21:00 06/05/19 08:59 05/08/19 08:53 Insulin Aspart (NovoLOG) 5 units NOVOTIAC SUBQ 05/08/19 08:00 06/07/19 07:59 05/08/19 11:51 Insulin Detemir (Levemir) 15 units DAILY SUBQ 05/08/19 09:00 06/07/19 08:59 05/08/19 08:53 Lorazepam (Ativan 2mg/ml 1ml) 2 mg Q2H PRN IV agitation 05/06/19 13:00 05/13/19 12:59 Morphine Sulfate (Morphine Sulfate) 1 mg Q4H PRN IVP Severe Pain (Pain Scale 7-10) 05/08/19 10:18 05/15/19 10:17 Ondansetron HCl (Zofran) 4 mg Q4H PRN IVP Nausea & Vomiting 05/06/19 13:00 06/05/19 12:59 05/08/19 10:37 Polyethylene Glycol (Miralax) 17 gm DAILYPRN PRN ORAL Constipation 05/07/19 13:00 06/05/19 12:59 Potassium Chloride/Sodium Chloride 1,000 ml @ 100 mls/hr Q10H IV 05/08/19 08:00 06/07/19 07:59 05/08/19 09:12 Potassium Phosphate 20 mm/ Sodium Chloride 281.6667 ml @ 46.944 m... ONCE IV 05/08/19 12:00 05/08/19 18:00 05/08/19 11:54 Allergies: Coded Allergies: No Known Allergies (Unverified , 04/05/17) ROS Limited/Unobtainable: No Constitutional: Reports: no symptoms HEENT: Reports: no symptoms Cardiovascular: Reports: no symptoms Respiratory: Reports: no symptoms Gastrointestinal/Abdominal: Reports: no symptoms Genitourinary: Reports: no symptoms Neurologic/Psychiatric: Reports: no symptoms Subjective 24 YO F admitted with nausea/vomiting and abdominal pain. Now diabetic ketoacidosis. Cover for Int Med-Dr Sampson. ICU Objective Last Vital Signs Date Time Temp Pulse Resp B/P (MAP) Pulse Ox O2 Delivery O2 Flow Rate FiO2 05/08/19 11:00 85 21 109/90 (96) 100 05/08/19 09:18 97.7 05/08/19 09:00 Room Air 05/07/19 19:08 2.0 28 Laboratory Tests Test 05/07/19 12:50 05/07/19 17:43 05/08/19 04:25 Sodium Level 141 MMOL/L (136-145) 142 MMOL/L (136-145) 138 MMOL/L (136-145) Potassium Level 3.2 MMOL/L (3.5-5.1) L 3.4 MMOL/L (3.5-5.1) L 2.8 MMOL/L (3.5-5.1) L Chloride Level 110 MMOL/L (98-107) H 109 MMOL/L (98-107) H 106 MMOL/L (98-107) Carbon Dioxide Level 17 MMOL/L (21-32) L 17 MMOL/L (21-32) L 20 MMOL/L (21-32) L Anion Gap 14 mmol/L (5-15) 16 mmol/L (5-15) H 11 mmol/L (5-15) Blood Urea Nitrogen 7 mg/dL (7-18) 5 mg/dL (7-18) L 4 mg/dL (7-18) L Creatinine 0.8 MG/DL (0.55-1.30) 0.7 MG/DL (0.55-1.30) 0.7 MG/DL (0.55-1.30) Estimat Glomerular Filtration Rate > 60 mL/min (>60) > 60 mL/min (>60) > 60 mL/min (>60) Glucose Level 147 MG/DL (74-106) H 201 MG/DL (74-106) H 149 MG/DL (74-106) H Calcium Level 8.9 MG/DL (8.5-10.1) 8.9 MG/DL (8.5-10.1) 8.6 MG/DL (8.5-10.1) Total Bilirubin 0.5 MG/DL (0.2-1.0) 0.5 MG/DL (0.2-1.0) Aspartate Amino Transf (AST/SGOT) 23 U/L (15-37) 23 U/L (15-37) Alanine Aminotransferase (ALT/SGPT) 13 U/L (12-78) 13 U/L (12-78) Alkaline Phosphatase 92 U/L (46-116) 87 U/L (46-116) Total Protein 6.8 G/DL (6.4-8.2) 6.3 G/DL (6.4-8.2) L Albumin 3.0 G/DL (3.4-5.0) L 2.9 G/DL (3.4-5.0) L Globulin 3.8 g/dL 3.4 g/dL Albumin/Globulin Ratio 0.8 (1.0-2.7) L 0.9 (1.0-2.7) L White Blood Count 8.1 K/UL (4.8-10.8) Red Blood Count 4.12 M/UL (4.20-5.40) L Hemoglobin 12.6 G/DL (12.0-16.0) Hematocrit 37.8 % (37.0-47.0) Mean Corpuscular Volume 92 FL (80-99) Mean Corpuscular Hemoglobin 30.6 PG (27.0-31.0) Mean Corpuscular Hemoglobin Concent 33.4 G/DL (32.0-36.0) Red Cell Distribution Width 12.1 % (11.6-14.8) Platelet Count 298 K/UL (150-450) Mean Platelet Volume 5.8 FL (6.5-10.1) L Neutrophils (%) (Auto) 50.3 % (45.0-75.0) Lymphocytes (%) (Auto) 36.4 % (20.0-45.0) Monocytes (%) (Auto) 8.9 % (1.0-10.0) Eosinophils (%) (Auto) 3.4 % (0.0-3.0) H Basophils (%) (Auto) 1.1 % (0.0-2.0) Erythrocyte Sedimentation Rate 32 MM/HR (0-20) H Phosphorus Level 2.4 MG/DL (2.5-4.9) L Magnesium Level 1.6 MG/DL (1.8-2.4) L C-Reactive Protein, Quantitative 1.8 mg/dL (0.00-0.90) H Intake and Output 05/07/19 05/08/19 19:00 07:00 Intake Total 1832.0 ml 1263.6 ml Output Total 900 ml 1000 ml Balance 932.0 ml 263.6 ml Intake Oral 500 ml 350 ml IV Total 1332.0 ml 913.6 ml Output Urine Total 900 ml 700 ml Emesis 300 ml # Voids 2 Objective PHYSICAL EXAMINATION: GENERAL: The patient awake, responsive. No acute distress. HEAD AND NECK: Pupils are reactive to light. Extraocular movements intact. Neck was supple. No JVD. LUNGS: Good air entry. No wheezing or rales. HEART: S1, S2. Tachycardic. ABDOMEN: Soft. Epigastric tenderness. No rebound tenderness. No fluid shift. EXTREMITIES: No cyanosis, clubbing, edema. NEUROLOGIC: Cranial nerves II through XII grossly intact. Motor is 5/5 and symmetric. Gait was not assessed due to the patient's status. Assessment/Plan Assessment/Plan ASSESSMENT: 1. Acute DKA. 2. Diabetes type 1, uncontrolled. 3. Epigastric pain, abdominal pain. 4. Metabolic acidosis. PLAN: 1. ICU. 2. Off Insulin drip; continue levemir and novolog sliding scale per endocrinology 3. Follow up with Dr. Coyle's recommendation from Critical Care. 4. Discussed with family member at bedside. 5. Ultrasound of abdomen=normal Angel Andres MD May 08, 2019 12:10
[2019-05-08] MEDS ORDERED: Potassium Phosphate 20 MM in NS 275 ML IV ONE (12:30)
[2019-05-08] MEDS ORDERED: Albuterol/Ipratropium 3ml neb HHN PRN (12:34)
[2019-05-08] MEDS ORDERED: LORazepam Inj 2mg/ml 1ml IV PRN (12:35)
[2019-05-08] MEDS ORDERED: Miralax 17gm pkt ORAL PRN (12:35)
[2019-05-08] MEDS: NS w/KCl 20mEq 1000ml 1,000 ML IV SCH ×2 (12:35→22:52)
--- NOTE | 2019-05-08 13:22 | NUR ---
TRANSFER TO FLOOR: Patient transferred to [facility], per Dr. Coyle. Report given to JOESPH An. Belongings checklist with receiving RN complete. Shorts were taken home by boyfriend.
[2019-05-08] MEDS ORDERED: Ketorolac 30mg Inj IV SCH (13:45)
[2019-05-08] MEDS ORDERED: Ketorolac 30mg Inj IM ONE (13:45)
--- NOTE | 2019-05-08 14:45 | NUR ---
NURSE NOTES: Pt in stable condition scd obtained. boyfriend at bedside .
[2019-05-08] MEDS ORDERED: D5 1/2NS 1000ml IV ONE (15:33)
[2019-05-08] MEDS ORDERED: NS 275ml ONE (15:33)
--- NOTE | 2019-05-08 15:41 | NUR ---
*-* INSURANCE *-* ALL CLINICALS AND REVIEWS HAVE BEEN FAXED TO: [employer] NO CAPSULE FILLING MACHINE OPERATOR ASSIGNED AT THIS TIME. PLEASE FAX THE REVIEW/CLINICAL P- [phone] F- [phone]...REVIEW/CLINICAL
--- NOTE | 2019-05-08 18:40 | Diagnostic Imaging Report ---
APPROVED REPORT CPT Code: 78195 Present Symptoms Shortness of breath Comments: Hx of DM BILATERAL: Imaging reveals a patent deep venous system bilaterally. There is no evidence of thrombus within the femoral, popliteal or tibial segments. The greater saphenous veins are also within normal limits. Doppler indicates normal spontaneous flow within these segments.
--- NOTE | 2019-05-08 18:43 | NUR ---
NURSE NOTES: Dr Coyle here earlier in shift made aware of pt complains of pain, to abdomen . Gave orders for one time dose of Ketorolac 30 mg iv , Pepcid 20 iv one dose now, and Mylanta. Per pt effective. No longer had abdominal pain. Presence of abdominal, yet inquiring when she could have regular food. Educated on symptoms and tolerance of heavy meals. Blood Sugar 90 mg/dl. Did not eat dinner. Insulin held
--- NOTE | 2019-05-08 19:30 | NUR ---
NURSE NOTES: Receive a report from JOESPH Salcido. Done rounds. Pt is awake and alert. No nausea/vomiting noted. Epigastric area pain tolerated after medication earlier. No dizziness or no SOB noted. Will continue to monitor.
--- NOTE | 2019-05-08 19:37 | NUR ---
NURSE NOTES: Pt sitting in chair, scd off . r/b explained
--- NOTE | 2019-05-08 19:38 | NUR ---
HAND-OFF: Report given to Gopal PINK.
--- NOTE | 2019-05-08 21:00 | NUR ---
NURSE NOTES: BS checked as 90mg/dL. No dizziness or pain noted. IV hydration and SCDs on bilateral legs. Will continue to monitor.
[2019-05-09] VITALS: BP 108/68
[2019-05-09 04:00] VITALS: BP 117/73
[2019-05-09] MEDS: NovoLOG Insulin Flexpen SUBQ SCH ×3 (06:31→17:05)
[2019-05-09 06:39] LABS: BASOPHILS % (AUTO) 1.3 % (0.0-2.0); EOSINOPHILS % (AUTO) 4.8 % (0.0-3.0); HEMATOCRIT 32.7 % (37.0-47.0); LYMPHOCYTES % (AUTO) 40.1 % (20.0-45.0); MEAN CORPUSCULAR VOLUME 91 FL (80-99); MONOCYTES % (AUTO) 9.6 % (1.0-10.0); NEUTROPHILS % (AUTO) 44.2 % (45.0-75.0); PLATELET COUNT 229 K/UL (150-450); RED BLOOD COUNT 3.59 M/UL (4.20-5.40); RED CELL DISTRIBUTION WIDTH 11.8 % (11.6-14.8); WHITE BLOOD COUNT 6.2 K/UL (4.8-10.8)
[2019-05-09 07:10] LABS: ALANINE AMINOTRANSFERASE 36 U/L (12-78); ALBUMIN 2.4 G/DL (3.4-5.0); ALBUMIN/GLOBULIN RATIO 0.8 (1.0-2.7); ALKALINE PHOSPHATASE 79 U/L (46-116); ANION GAP 9 mmol/L (5-15); ASPARTATE AMINO TRANSFERASE 77 U/L (15-37); BILIRUBIN,TOTAL 0.5 MG/DL (0.2-1.0); BLOOD UREA NITROGEN 4 mg/dL (7-18); CARBON DIOXIDE 22 MMOL/L (21-32); CHLORIDE 110 MMOL/L (98-107); CREATININE 0.5 MG/DL (0.55-1.30); POTASSIUM 3.4 MMOL/L (3.5-5.1); SODIUM 141 MMOL/L (136-145)
--- NOTE | 2019-05-09 07:30 | NUR ---
NURSE NOTES: WALKING ROUNDS DONE WITH OUTGOING RN. PATIENT AWAKE IN BED WITH FRIEND AT BEDSIDE. QUESTIONS ANSWERED. NEEDS MET. DISCUSSED PLAN OF CARE FOR THE DAY. DENIES N/V/ABD PAIN. TOLERATING CCHO DIET.BED IN LOWEST AND LOCKED POSITION. CALL LIGHT WITHIN REACH.
--- NOTE | 2019-05-09 07:30 | NUR ---
HAND-OFF: Report given to JOESPH Guzman. Done rounds.
[2019-05-09 08:00] VITALS: BP 128/78
[2019-05-09] MEDS ORDERED: Levemir Flexpen SUBQ SCH ×2 (09:00→21:00)
[2019-05-09] MEDS: NS w/KCl 20mEq 1000ml 1,000 ML IV SCH (09:11)
--- NOTE | 2019-05-09 11:55 | GI Progress Note ---
Assessment/Plan Problems: (1) Vomiting ICD Codes: R11.10 - Vomiting, unspecified SNOMED: 140473834 (2) Constipation ICD Codes: K59.00 - Constipation, unspecified SNOMED: 35377875 (3) DKA, type 1 ICD Codes: E10.10 - Type 1 diabetes mellitus with ketoacidosis without coma SNOMED: 21567656, 638036855 (4) Diabetes mellitus ICD Codes: E11.9 - Type 2 diabetes mellitus without complications SNOMED: 77239943 (5) Hyperglycemia ICD Codes: R73.9 - Hyperglycemia, unspecified SNOMED: 09472381 (6) Dehydration ICD Codes: E86.0 - Dehydration SNOMED: 23556821 (7) ETOH abuse ICD Codes: F10.10 - Alcohol abuse, uncomplicated SNOMED: 65265529 Status: stable, progressing Status Narrative Discussed with Dr. Carmen Assessment/Plan No plans for GI procedures at this time Symptomatic treatment Zofran as needed, Reglan for persistent vomiting Diabetes management IV p.o. hydration, electrolyte correction Advance diet as tolerated, soft ADA diet today PPI Follow labs DC planning Discussed with Dr. Carmen. Thank you for this patient referral, we will follow. Subjective Subjective patient feels lightheaded Objective Last 24 Hour Vital Signs Date Time Temp Pulse Resp B/P (MAP) Pulse Ox O2 Delivery O2 Flow Rate FiO2 05/09/19 09:00 Room Air 05/09/19 08:00 98.2 60 16 128/78 (95) 98 05/09/19 04:00 98.2 59 17 117/73 (88) 99 05/09/19 00:00 97.7 59 19 108/68 (81) 99 05/08/19 21:00 Room Air 05/08/19 20:00 98 Room Air 21 05/08/19 20:00 98.3 75 18 129/78 (95) 100 05/08/19 20:00 60 20 98 Room Air 21 05/08/19 13:00 82 18 120/71 (87) 100 05/08/19 12:00 85 20 116/69 (85) 100 Intake and Output 05/08/19 05/09/19 19:00 07:00 Intake Total 546.944 ml 800 ml Output Total 100 ml Balance 446.944 ml 800 ml Intake Oral 100 ml IV Total 446.944 ml 800 ml Output Urine Total 100 ml # Voids 8 Laboratory Tests Test 05/09/19 05:45 White Blood Count 6.2 K/UL (4.8-10.8) Red Blood Count 3.59 M/UL (4.20-5.40) L Hemoglobin 11.0 G/DL (12.0-16.0) L Hematocrit 32.7 % (37.0-47.0) L Mean Corpuscular Volume 91 FL (80-99) Mean Corpuscular Hemoglobin 30.7 PG (27.0-31.0) Mean Corpuscular Hemoglobin Concent 33.6 G/DL (32.0-36.0) Red Cell Distribution Width 11.8 % (11.6-14.8) Platelet Count 229 K/UL (150-450) Mean Platelet Volume 5.7 FL (6.5-10.1) L Neutrophils (%) (Auto) 44.2 % (45.0-75.0) L Lymphocytes (%) (Auto) 40.1 % (20.0-45.0) Monocytes (%) (Auto) 9.6 % (1.0-10.0) Eosinophils (%) (Auto) 4.8 % (0.0-3.0) H Basophils (%) (Auto) 1.3 % (0.0-2.0) Erythrocyte Sedimentation Rate 21 MM/HR (0-20) H Sodium Level 141 MMOL/L (136-145) Potassium Level 3.4 MMOL/L (3.5-5.1) L Chloride Level 110 MMOL/L (98-107) H Carbon Dioxide Level 22 MMOL/L (21-32) Anion Gap 9 mmol/L (5-15) Blood Urea Nitrogen 4 mg/dL (7-18) L Creatinine 0.5 MG/DL (0.55-1.30) L Estimat Glomerular Filtration Rate > 60 mL/min (>60) Glucose Level 127 MG/DL (74-106) H Calcium Level 8.0 MG/DL (8.5-10.1) L Phosphorus Level 3.0 MG/DL (2.5-4.9) Magnesium Level 2.0 MG/DL (1.8-2.4) Total Bilirubin 0.5 MG/DL (0.2-1.0) Aspartate Amino Transf (AST/SGOT) 77 U/L (15-37) H Alanine Aminotransferase (ALT/SGPT) 36 U/L (12-78) Alkaline Phosphatase 79 U/L (46-116) C-Reactive Protein, Quantitative 0.8 mg/dL (0.00-0.90) Total Protein 5.3 G/DL (6.4-8.2) L Albumin 2.4 G/DL (3.4-5.0) L Globulin 2.9 g/dL Albumin/Globulin Ratio 0.8 (1.0-2.7) L Height (Feet): 5 Height (Inches): 0.00 Weight (Pounds): 133 General Appearance: WD/WN, no apparent distress, alert Cardiovascular: normal rate Respiratory/Chest: normal breath sounds, no respiratory distress Abdominal Exam: normal bowel sounds, non tender, soft Extremities: normal range of motion, non-tender Irma Garza NP May 09, 2019 11:55
[2019-05-09 12:00] VITALS: BP 146/82
--- NOTE | 2019-05-09 12:00 | NUR ---
NURSE NOTES: NOTED HR APICAL 44-52. PATIENT ASYMPTOMATIC PLACED CALL TO DR. JEFFERY WITH FINDINGS. PATIENT INFORMED. PATIENT IN BED IN LOWEST AND LOCKED POSITION. CALL LIGHT WITHIN REACH.
--- NOTE | 2019-05-09 12:30 | NUR ---
NURSE NOTES: RETURNED CALL RECEIVED FROM DR. JEFFERY. NO INTERVENTIONS AT THIS TIME. PATIENT DENIES ANY SYMPTOMS. CALL LIGHT WITHIN REACH.
--- NOTE | 2019-05-09 12:48 | NUR ---
CASE MANAGEMENT:REVIEW 05/09/19 SI: DKA. ETOH ABUSE 98.3 50 17 146/82 98% ON RA H/H-11.0/332.7 ESR+21 IS: LEVEMIR SQ QD IV PEPCID Q12 NOVOLOG SQ TID AC : MED/SURG STATUS 3 EAST DCP: FROM HOME PLAN: CLEAR LIQUIDS
--- NOTE | 2019-05-09 14:15 | NUR ---
NURSE NOTES: PER PATIENT REQUEST, RE-CHECKED ACCUCHECK 234. PLACED CALL TO DR. ALVAREZ. NEW INSULIN ORDERS RECEIVED AND CARRIED OUT. WILL CHECK BLOOD GLUCOSE AT SCHEDULED AC/HS TIMES.
[2019-05-09] MEDS ORDERED: NovoLOG Insulin Flexpen SUBQ ONE (14:45)
--- NOTE | 2019-05-09 15:51 | NUR ---
*-* INSURANCE *-* ALL CLINICALS AND REVIEWS HAVE BEEN FAXED TO: [employer] NO COMBINED RAIL OPERATOR ASSIGNED AT THIS TIME. PLEASE FAX THE REVIEW/CLINICAL P- [phone] F- [phone]...REVIEW/CLINICAL
[2019-05-09 16:00] VITALS: BP 144/82
[2019-05-09] MEDS ORDERED: NovoLOG Insulin Flexpen SUBQ SCH (16:30)
--- NOTE | 2019-05-09 16:50 | Internal Med Progress Note ---
Subjective Date of Service: May 09, 2019 Physician Name Angel Andres Attending Physician Taco Sampson MD Current Medications Medications (Trade) Dose Ordered Sig/Loc Route PRN Reason Start Time Stop Time Status Last Admin Dose Admin Acetaminophen (Tylenol) 650 mg Q4H PRN ORAL Mild Pain/Temp > 100.5 05/08/19 12:34 06/07/19 12:33 05/08/19 20:20 Al Hydroxide/Mg Hydroxide (Mylanta) 30 ml Q6H PRN ORAL GI UPSET 05/08/19 13:45 06/07/19 13:44 05/08/19 14:01 Albuterol/ Ipratropium (Albuterol/ Ipratropium) 3 ml Q4H PRN HHN Shortness of Breath 05/08/19 12:34 05/13/19 12:33 Dextrose (Dextrose 50%) 25 ml Q30M PRN IV Hypoglycemia 05/09/19 14:15 06/08/19 14:14 Dextrose (Dextrose 50%) 50 ml Q30M PRN IV Hypoglycemia 05/09/19 14:15 06/08/19 14:14 Famotidine (Pepcid I.v.) 20 mg Q12HR IVP 05/08/19 21:00 06/05/19 08:59 05/09/19 09:03 Insulin Aspart (NovoLOG) BEFORE MEALS AND HS SUBQ 05/09/19 16:30 06/08/19 16:29 Insulin Aspart (NovoLOG) 5 units NOVOTIAC SUBQ 05/08/19 16:50 06/07/19 07:59 05/09/19 11:35 Insulin Detemir (Levemir) 15 units Q12HR SUBQ 05/09/19 21:00 06/07/19 08:59 Lorazepam (Ativan 2mg/ml 1ml) 2 mg Q2H PRN IV agitation 05/08/19 12:35 05/15/19 12:34 Ondansetron HCl (Zofran) 4 mg Q4H PRN IVP Nausea & Vomiting 05/08/19 12:35 06/07/19 12:34 Polyethylene Glycol (Miralax) 17 gm DAILYPRN PRN ORAL Constipation 05/08/19 12:35 06/07/19 12:34 Allergies: Coded Allergies: No Known Allergies (Unverified , 04/05/17) ROS Limited/Unobtainable: No Constitutional: Reports: no symptoms HEENT: Reports: no symptoms Cardiovascular: Reports: no symptoms Respiratory: Reports: no symptoms Gastrointestinal/Abdominal: Reports: no symptoms Genitourinary: Reports: no symptoms Neurologic/Psychiatric: Reports: no symptoms Subjective 24 YO F admitted with nausea/vomiting and abdominal pain. Now diabetic ketoacidosis. Cover for Int Bon-Dr Sampson. Objective Last Vital Signs Date Time Temp Pulse Resp B/P (MAP) Pulse Ox O2 Delivery O2 Flow Rate FiO2 05/09/19 16:00 98.3 55 17 144/82 (102) 98 05/09/19 13:50 Room Air 21 05/07/19 19:08 2.0 Laboratory Tests Test 05/09/19 05:45 White Blood Count 6.2 K/UL (4.8-10.8) Red Blood Count 3.59 M/UL (4.20-5.40) L Hemoglobin 11.0 G/DL (12.0-16.0) L Hematocrit 32.7 % (37.0-47.0) L Mean Corpuscular Volume 91 FL (80-99) Mean Corpuscular Hemoglobin 30.7 PG (27.0-31.0) Mean Corpuscular Hemoglobin Concent 33.6 G/DL (32.0-36.0) Red Cell Distribution Width 11.8 % (11.6-14.8) Platelet Count 229 K/UL (150-450) Mean Platelet Volume 5.7 FL (6.5-10.1) L Neutrophils (%) (Auto) 44.2 % (45.0-75.0) L Lymphocytes (%) (Auto) 40.1 % (20.0-45.0) Monocytes (%) (Auto) 9.6 % (1.0-10.0) Eosinophils (%) (Auto) 4.8 % (0.0-3.0) H Basophils (%) (Auto) 1.3 % (0.0-2.0) Erythrocyte Sedimentation Rate 21 MM/HR (0-20) H Sodium Level 141 MMOL/L (136-145) Potassium Level 3.4 MMOL/L (3.5-5.1) L Chloride Level 110 MMOL/L (98-107) H Carbon Dioxide Level 22 MMOL/L (21-32) Anion Gap 9 mmol/L (5-15) Blood Urea Nitrogen 4 mg/dL (7-18) L Creatinine 0.5 MG/DL (0.55-1.30) L Estimat Glomerular Filtration Rate > 60 mL/min (>60) Glucose Level 127 MG/DL (74-106) H Calcium Level 8.0 MG/DL (8.5-10.1) L Phosphorus Level 3.0 MG/DL (2.5-4.9) Magnesium Level 2.0 MG/DL (1.8-2.4) Total Bilirubin 0.5 MG/DL (0.2-1.0) Aspartate Amino Transf (AST/SGOT) 77 U/L (15-37) H Alanine Aminotransferase (ALT/SGPT) 36 U/L (12-78) Alkaline Phosphatase 79 U/L (46-116) C-Reactive Protein, Quantitative 0.8 mg/dL (0.00-0.90) Total Protein 5.3 G/DL (6.4-8.2) L Albumin 2.4 G/DL (3.4-5.0) L Globulin 2.9 g/dL Albumin/Globulin Ratio 0.8 (1.0-2.7) L Intake and Output 05/08/19 05/09/19 19:00 07:00 Intake Total 546.944 ml 800 ml Output Total 100 ml Balance 446.944 ml 800 ml Intake Oral 100 ml IV Total 446.944 ml 800 ml Output Urine Total 100 ml # Voids 8 Objective PHYSICAL EXAMINATION: GENERAL: The patient awake, responsive. No acute distress. HEAD AND NECK: Pupils are reactive to light. Extraocular movements intact. Neck was supple. No JVD. LUNGS: Good air entry. No wheezing or rales. HEART: S1, S2. Tachycardic. ABDOMEN: Soft. Epigastric tenderness. No rebound tenderness. No fluid shift. EXTREMITIES: No cyanosis, clubbing, edema. NEUROLOGIC: Cranial nerves II through XII grossly intact. Motor is 5/5 and symmetric. Gait was not assessed due to the patient's status. Assessment/Plan Assessment/Plan ASSESSMENT: 1. Acute DKA. 2. Diabetes type 1, uncontrolled. 3. Epigastric pain, abdominal pain. 4. Metabolic acidosis. PLAN: 1. Better controlled glucose 2. Off Insulin drip; continue levemir and novolog sliding scale per endocrinology 3. Follow up with Dr. Coyle's recommendation from Critical Care. 4. Discussed with family member at bedside. 5. Ultrasound of abdomen=normal Angel Andres MD May 09, 2019 16:50
--- NOTE | 2019-05-09 17:30 | NUR ---
NURSE NOTES: DISCHARGE ORDER RECEIVED FROM DR. JEFFERY. PATIENT/ FAMILY AWARE. MIGUEL BURKS. PLEASE SEE E-MAR.
--- NOTE | 2019-05-09 18:26 | NUR ---
NURSE NOTES: DISCHARGE INSTRUCTIONS EXPLAINED TO PATIENT AND PATIENT EDUCATION PROVIDED.VERBALIZED UNDERSTANDING. PATIENT INSTRUCTED TO FOLLOW-UP WITH PCP.ALL BELONGINGS ACCOUNTED FOR.
--- NOTE | 2019-05-09 18:26 | NUR ---
HAND-OFF: Report given to [].
--- NOTE | 2019-05-10 09:51 | Discharge Summary ---
Discharge Summary Discharge Summary _ DATE OF ADMISSION: 05/06/2019 DATE OF DISCHARGE: 05/09/2019 ADMITTING MD: Dr. Taco Sampson DISCHARGED BY: Dr. Ministerio Coyle CONSULTANTS: Dr. Ministerio London [facility] COURSE: Patient is a 24-year-old female with past medical history significant for type 1 diabetes, who presented to the emergency room due to nausea, vomiting , and abdominal discomfort. She was recently at the ED due to same complaints, due to recent increased alcohol intake. She had difficulty controlling her glucose levels. On evaluation at ED, blood pressure was 122/63, heart rate was elevated to 122, 98% saturation. Blood work showed leukocytosis. WBC of 15. Hemoglobin 12, hematocrit 73. CO2 8. Anion gap 27. Glucose was elevated to 362. LFTs and lipase were normal. Urinalyses showed +4 ketones, +4 glucose, 2+ protein. She was given IV hydration. She was then admitted for acute DKA. She was started on insulin drip. She was continued on IV hydration. She was placed on n.p.o. She was given symptomatic treatment for vomiting. Anion gap was monitored. Hemoglobin A1c 10. Venous duplex of the lower extremity was negative for DVT. Abdominal ultrasound was negative. Insulin drip was discontinued on 05/08/2019. Anion gap closed. She was started on Levemir and NovoLog. She was continued on IV hydration with potassium supplements. She was transferred to regular floor. Diet was advanced. She was given diabetic education. She wants instructed on need for insulin compliance. She was advised alcohol cessation. Blood glucose was better controlled. She was given potassium supplementation. She was eventually discharged home. FINAL DIAGNOSES: Acute DKA, resolved Type 1 diabetes, uncontrolled Epigastric pain, abdominal pain, vomiting Metabolic acidosis Constipation EtOH abuse DISPOSITION: Patient was discharged home. DISCHARGE MEDICATIONS: Refer to Discharge Medication List. DISCHARGE INSTRUCTIONS: Follow-up in a week. I have been assigned to complete a discharge summary on this account, I was not involved with the patient's management.--CHEVY Ahn Jacqueline Robles NP May 10, 2019 09:51
--- NOTE | 2019-05-10 15:00 | Geriatric Medicine Prog Note ---
DATE: 05/09/2019 ENDOCRINOLOGY PROGRESS NOTE SUBJECTIVE: The patient appears more comfortable today . OBJECTIVE: VITAL SIGNS: Stable. RESPIRATORY: Clear. CARDIOVASCULAR: Regular rate. ABDOMEN: Soft. LABORATORY DATA: Glucose 240. ASSESSMENT: Diabetes Mellitus stable PLAN: Accuchecks ISSACD a.cTalisha and at bedtime. Tyson Crabtree M.D. DR: NEO JOB#: [id number] CC: HUY
== END 2019-05-09 18:15 | disposition home or self-care (01) | DRG 420 ==
LOC: EDBD 00:28 → EMR 00:41 → 3E 02:10 → EDBEDREQ 03:20 → 2E 07:55 → ICU 12:00 → 3E 05-08 12:40
DX: E10.10 Type 1 diabetes mellitus with ketoacidosis without coma (principal); E87.2 Acidosis; E86.0 Dehydration; F10.10 Alcohol abuse, uncomplicated; K59.00 Constipation, unspecified; Z79.4 Long term (current) use of insulin
CPT/HCPCS: 36415; 36600; 71045; 76700; 80048; 80053; 80076; 81001; 82803; 82962; 83036; 83690; 83735; 84100; 85007; 85025; 85610; 85651; 85730; 86140; 93970; 94664; 96360; 99285; J1815; J2405; J8499; S5561

== ENCOUNTER 2019-05-14 20:52 | Emergency (ER) | payer OTHER ==
[~2019-05-14] VITALS: Ht 152.4 cm; Wt 57.6 kg
[2019-05-14] MEDS ORDERED: FUROSEMIDE20 M1 ORAL (21:18)
--- NOTE | 2019-05-14 21:18 | Emergency Room Report ---
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 Patient reports her feet have been mildly swollen and she wants to know if she can take anything to help it reduce. No f/c cp sob, no abdominal pain. Allergies: Coded Allergies: No Known Allergies (Unverified , 04/05/17) Patient History Past Medical History: see triage record Social History: Reports: alcohol use Last Menstrual Period: 05/09/19 Reviewed Nursing Documentation: PMH: Agreed; PSxH: Agreed Nursing Documentation-PMH Past Medical History: No History, Except For Hx Diabetes: Yes - TYPE 1 DIABETES MELLITUS Review of Systems All Other Systems: negative except mentioned in HPI Physical Exam Vital Signs Date Time Temp Pulse Resp B/P (MAP) Pulse Ox O2 Delivery O2 Flow Rate FiO2 05/14/19 20:54 98.1 81 14 125/75 (92) 97 Room Air Sp02 EP Interpretation: reviewed, normal General Appearance: well appearing, no apparent distress, alert Head: normocephalic, atraumatic Eyes: bilateral eye PERRL, bilateral eye EOMI ENT: uvula midline, moist mucus membranes Neck: supple, thyroid normal, supple/symm/no masses Respiratory: lungs clear, no respiratory distress, no retraction, no accessory muscle use Cardiovascular #1: normal peripheral pulses, regular rate, rhythm, no edema, no gallop, no murmur, edema - Trace pedal edema bilaterally Gastrointestinal: non tender, soft, no guarding, no rebound Musculoskeletal: normal inspection Neurologic: alert, oriented x3 Psychiatric: mood/affect normal Skin: no rash, warm/dry Medical Decision Making Diagnostic Impression: Primary Impression: Edema ER Course 24-year-old female with trace pedal edema bilaterally, possibly secondary to being resuscitated aggressively, will provide patient with a dose of Lasix, low suspicion for DVT, low suspicion for CHF, lungs are clear to auscultation, will provide patient with Lasix, disposition home with return precautions Last Vital Signs Date Time Temp Pulse Resp B/P (MAP) Pulse Ox O2 Delivery O2 Flow Rate FiO2 05/14/19 20:54 98.1 81 14 125/75 (92) 97 Room Air Disposition: HOME, SELF-CARE Condition: Stable Scripts Furosemide* (LASIX*) 20 Mg Tablet 20 MG ORAL DAILY, #3 TAB Prov: Janes Tan MD 05/14/19 Referrals: [facility] Patient Instructions: Edema, [id number] Additional Instructions: The patient was provided with discharge instructions, notified to follow-up with a primary care doctor and or specialist in the next 24-48 hours, and to return to the ED if they have worsening of their symptoms. Please note that this report is being documented using [employer] technology. This can lead to erroneous entry secondary to incorrect interpretation by the dictating instrument. Janes Tan MD May 14, 2019 21:18
--- NOTE | 2019-05-14 21:45 | NUR ---
ED Nurse Note: ER DISCHARGE NOTE: Patient is cleared to be discharged per ERMD, pt is aox4, on room air, with stable vital signs. pt was given dc and prescription instructions, pt was able to verbalize understanding, pt id band removed without complications. pt is able to ambulate with steady gait. pt took all belongings.
[2019-05-14 22:00] VITALS: BP 129/64
[2019-05-14 22:10] VITALS: BP 129/64
== END 2019-05-14 22:10 | disposition home or self-care (01) ==
LOC: EMR 21:25
DX: R60.0 Localized edema (principal); E10.8 Type 1 diabetes mellitus with unspecified complications
CPT/HCPCS: 81025; 99283

== ENCOUNTER 2019-09-08 00:28 | Emergency (ER) | payer OTHER ==
[~2019-09-08] VITALS: Ht 152.4 cm; Wt 57.6 kg
[~2019-09-08 00:28] MED LIST changes: +FUROSEMIDE20 M1 ORAL
[2019-09-08 00:40] VITALS: BP 107/67
--- NOTE | 2019-09-08 00:40 | NUR ---
ED Nurse Note: pt aaox4, vss, no acute distress, with a BS of 229 upon arrival. Pt walked into ED c/o N/V after drinking 09/06 night. Pt also c/o of a headach and stated pain is 6/10. at bedside. Pt stated she was DM type 1. MD at bedside.
--- NOTE | 2019-09-08 00:46 | Emergency Room Report ---
History of Present Illness General Chief Complaint: Nausea, Vomiting, and Diarrhea Present Illness HPI This is a 24-year-old female presents after increased nausea and vomiting. Patient had prior history of type 1 diabetes. She reports having recent alcohol intake and states she had several alcoholic drinks on Monday. Patient subsequently began having increased nausea and vomiting. She states her blood sugar had been minimally changed. She denies any prior history of she denies any shortness of breath. She reports having some continued nausea and had been less able to eat.She reports having moderate abdominal pain. Allergies: Coded Allergies: No Known Allergies (Unverified , 04/05/17) Patient History Past Medical History: see triage record Last Menstrual Period: 09/06 Now: No Reviewed Nursing Documentation: PMH: Agreed; PSxH: Agreed Nursing Documentation-PMH Hx Diabetes: Yes - TYPE 1 DIABETES MELLITUS Review of Systems All Other Systems: negative except mentioned in HPI Physical Exam Vital Signs Date Time Temp Pulse Resp B/P (MAP) Pulse Ox O2 Delivery O2 Flow Rate FiO2 09/08/19 00:31 98.2 95 16 112/79 (90) 98 Room Air Sp02 EP Interpretation: reviewed, normal General Appearance: normal inspection, well appearing, no apparent distress, alert, GCS 15 Head: atraumatic ENT: normal ENT inspection, hearing grossly normal, normal voice Neck: normal inspection, full range of motion, supple, no bony tend Respiratory: normal inspection, lungs clear, normal breath sounds, no respiratory distress, no retraction, no wheezing Cardiovascular #1: regular rate, rhythm, no edema Gastrointestinal: normal inspection, normal bowel sounds, non tender, soft, no guarding, no hernia Genitourinary: no CVA tenderness Musculoskeletal: normal inspection, back normal, normal range of motion Neurologic: normal inspection, alert, oriented x3, responsive, architectural drafter III-XII nml as tested, speech normal Psychiatric: normal inspection, judgement/insight normal, mood/affect normal Medical Decision Making Diagnostic Impression: Primary Impression: Diabetes mellitus Additional Impression: Hypokalemia ER Course Patient presented for increased nausea and vomiting. Differential diagnosis include was not limited to dehydration, diabetic ketoacidosis, gastroenteritis, pancreatitis among others. Because of complexity of patient's case laboratory tests and imaging studies were ordered. The patient's laboratory testing showed no evidence of diabetic ketoacidosis. She was noted to be mildly hypokalemic and was given oral potassium. Patient was also given IV antiemetics as well as IV acid blockers. Patient was given IV hydration and had improvement in her symptoms after medications. Patient will be discharged home. She is advised to follow-up with her primary care physician for recheck of her laboratory tests. She is advised to return if worse. This medical record is generated with [employer] instrument specialist software. There may be some instrument specialist discrepancies related to use of this software Labs Test 09/08/19 00:40 09/08/19 00:56 Urine Color Pale yellow Urine Appearance Clear Urine pH 5 (4.5-8.0) Urine Specific [place] 1.015 (1.005-1.035) Urine Protein 2+ (NEGATIVE) Urine Glucose (UA) 4+ (NEGATIVE) Urine Ketones 3+ (NEGATIVE) Urine Blood Negative (NEGATIVE) Urine Nitrite Negative (NEGATIVE) Urine Bilirubin Negative (NEGATIVE) Urine Urobilinogen Normal MG/DL (0.0-1.0) Urine Leukocyte Esterase Negative (NEGATIVE) Urine RBC 0 /HPF (0 - 2) Urine WBC 0-2 /HPF (0 - 2) Urine Squamous Epithelial Cells Few /LPF (NONE/OCC) Urine Bacteria Occasional /HPF (NONE) Urine Mucus Few /LPF (NONE/OCC) Urine HCG, Qualitative Negative (NEGATIVE) White Blood Count 11.8 K/UL (4.8-10.8) Red Blood Count 5.01 M/UL (4.20-5.40) Hemoglobin 15.3 G/DL (12.0-16.0) Hematocrit 43.6 % (37.0-47.0) Mean Corpuscular Volume 87 FL (80-99) Mean Corpuscular Hemoglobin 30.5 PG (27.0-31.0) Mean Corpuscular Hemoglobin Concent 35.1 G/DL (32.0-36.0) Red Cell Distribution Width 11.5 % (11.6-14.8) Platelet Count 421 K/UL (150-450) Mean Platelet Volume 5.6 FL (6.5-10.1) Neutrophils (%) (Auto) 69.4 % (45.0-75.0) Lymphocytes (%) (Auto) 21.4 % (20.0-45.0) Monocytes (%) (Auto) 7.9 % (1.0-10.0) Eosinophils (%) (Auto) 0.6 % (0.0-3.0) Basophils (%) (Auto) 0.7 % (0.0-2.0) Sodium Level 139 MMOL/L (136-145) Potassium Level 3.2 MMOL/L (3.5-5.1) Chloride Level 101 MMOL/L (98-107) Carbon Dioxide Level 24 MMOL/L (21-32) Anion Gap 14 mmol/L (5-15) Blood Urea Nitrogen 10 mg/dL (7-18) Creatinine 0.8 MG/DL (0.55-1.30) Estimat Glomerular Filtration Rate > 60 mL/min (>60) Glucose Level 233 MG/DL (74-106) Calcium Level 9.5 MG/DL (8.5-10.1) Magnesium Level 1.9 MG/DL (1.8-2.4) Total Bilirubin 0.7 MG/DL (0.2-1.0) Aspartate Amino Transf (AST/SGOT) 25 U/L (15-37) Alanine Aminotransferase (ALT/SGPT) 28 U/L (12-78) Alkaline Phosphatase 119 U/L (46-116) Total Protein 8.8 G/DL (6.4-8.2) Albumin 4.1 G/DL (3.4-5.0) Globulin 4.7 g/dL Albumin/Globulin Ratio 0.9 (1.0-2.7) Acetone Level Positive-small (NEGATIVE) Last Vital Signs Date Time Temp Pulse Resp B/P (MAP) Pulse Ox O2 Delivery O2 Flow Rate FiO2 09/08/19 00:31 98.2 95 16 112/79 (90) 98 Room Air Status: improved Disposition: HOME, SELF-CARE Condition: Stable Scripts Famotidine* (Pepcid 20mg tablet*) 20 Mg Tablet 20 MG ORAL DAILY, #30 TAB 0 Refills Prov: Jesús Angulo MD 09/08/19 Ondansetron Odt* (ZOFRAN ODT*) 4 Mg Tab.rapdis 4 MG BC EVERY 8 HOURS PRN for Nausea & Vomiting, #10 TAB 0 Refills Prov: Jesús Angulo MD 09/08/19 Jesús Angulo MD Sep 08, 2019 00:46
--- NOTE | 2019-09-08 01:00 | NUR ---
ED Nurse Note: Blood and urine sent to lab.
[2019-09-08 01:20] LABS: ANION GAP 14 mmol/L (5-15); BLOOD UREA NITROGEN 10 mg/dL (7-18); CALCIUM 9.5 MG/DL (8.5-10.1); CARBON DIOXIDE 24 MMOL/L (21-32); CHLORIDE 101 MMOL/L (98-107); CREATININE 0.8 MG/DL (0.55-1.30); POTASSIUM 3.2 MMOL/L (3.5-5.1); SODIUM 139 MMOL/L (136-145)
[2019-09-08 01:21] LABS: APPEARANCE,URINE CLEAR; BILIRUBIN, URINE NEGATIVE (NEGATIVE); COLOR,URINE PALE YELLOW; GLUCOSE, URINE (UA) 4+ (NEGATIVE); KETONES,URINE 3+ (NEGATIVE); LEUKOCYTE ESTERASE ,URINE NEGATIVE (NEGATIVE); NITRITE,URINE NEGATIVE (NEGATIVE); PH,URINE 5 (4.5-8.0); PROTEIN,URINE 2+ (NEGATIVE); UROBILINOGEN,URINE NORMAL MG/DL (0.0-1.0)
[2019-09-08 01:24] LABS: BASOPHILS % (AUTO) 0.7 % (0.0-2.0); EOSINOPHILS % (AUTO) 0.6 % (0.0-3.0); HEMATOCRIT 43.6 % (37.0-47.0); HEMOGLOBIN 15.3 G/DL (12.0-16.0); LYMPHOCYTES % (AUTO) 21.4 % (20.0-45.0); MEAN CORPUSCULAR VOLUME 87 FL (80-99); MONOCYTES % (AUTO) 7.9 % (1.0-10.0); NEUTROPHILS % (AUTO) 69.4 % (45.0-75.0); PLATELET COUNT 421 K/UL (150-450); RED BLOOD COUNT 5.01 M/UL (4.20-5.40); RED CELL DISTRIBUTION WIDTH 11.5 % (11.6-14.8); WHITE BLOOD COUNT 11.8 K/UL (4.8-10.8)
[2019-09-08 01:25] LABS: ALANINE AMINOTRANSFERASE 28 U/L (12-78); ALBUMIN 4.1 G/DL (3.4-5.0); ALBUMIN/GLOBULIN RATIO 0.9 (1.0-2.7); ALKALINE PHOSPHATASE 119 U/L (46-116); ASPARTATE AMINO TRANSFERASE 25 U/L (15-37); BILIRUBIN,TOTAL 0.7 MG/DL (0.2-1.0)
[2019-09-08 02:21] VITALS: BP 108/62
[2019-09-08] MEDS ORDERED: ONDANSETRON ODT4 MG BC (02:24)
[2019-09-08] MEDS ORDERED: FAMOTIDINE20 MG ORAL (02:24)
[2019-09-08 02:40] VITALS: BP 110/67
--- NOTE | 2019-09-08 02:40 | NUR ---
ER DISCHARGE NOTE: Patient is cleared to be discharged per ERMD, pt is aox4, on room air, with stable vital signs. pt was given dc and prescription instructions, pt was able to verbalize understanding, pt id band and iv site removed without complications. pt is able to ambulate with steady gait. pt took all belongings. Pt stated she denies feelings of n/v.
== END 2019-09-08 02:40 | disposition home or self-care (01) ==
LOC: EMR 00:45
DX: E10.8 Type 1 diabetes mellitus with unspecified complications (principal); E87.6 Hypokalemia
CPT/HCPCS: 36415; 80053; 81003; 81025; 82009; 83735; 85025; 96374; 96375; J2405; S0028; Z7502; 99284; J8499

== ENCOUNTER 2020-04-22 17:50 | Emergency (ER) | payer MEDICAID, OTHER ==
[~2020-04-22] VITALS: Ht 152.4 cm; Wt 58.1 kg
[~2020-04-22 17:50] MED LIST changes: +FAMOTIDINE20 MG ORAL; +ONDANSETRON ODT4 MG BC
--- NOTE | 2020-04-22 18:20 | NUR ---
ED Nurse Note: Patient walked into ED from home for c/o back pain s/p slip and fall on Monday. Pt states she slipped down the stairs and landed on her back. Pt has been taking 800mg ibuprofen a couple times a day with no relief, last dose at 1600 today. No head trauma or LOC noted. No cough, SOB, fever.
[2020-04-22 18:42] VITALS: BP 108/72
--- NOTE | 2020-04-22 18:46 | Diagnostic Imaging Report ---
EXAM: CT Thoracic Spine Without Intravenous Contrast CLINICAL HISTORY: TRAUMA TECHNIQUE: Axial computed tomography images of the thoracic spine without intravenous contrast. CTDI is 9 mGy and DLP is 492 mGy-cm. One or more of the following dose reduction techniques were used: automated exposure control, adjustment of the mA and/or kV according to patient size, use of iterative reconstruction technique. Coronal and sagittal reformatted images were created and reviewed. COMPARISON: No relevant prior studies available. FINDINGS: Vertebrae: Unremarkable. No acute fracture. Discs/spinal canal/neural foramina: No acute findings. No spinal canal stenosis. Soft tissues: Unremarkable. IMPRESSION: 1. No acute traumatic injury. 2. Unremarkable study.
--- NOTE | 2020-04-22 18:47 | Diagnostic Imaging Report ---
EXAM: CT Cervical Spine Without Intravenous Contrast CLINICAL HISTORY: TRAUMA TECHNIQUE: Axial computed tomography images of the cervical spine without intravenous contrast. CTDI is 5. MGy and DLP is 134 mGy-cm. One or more of the following dose reduction techniques were used: automated exposure control, adjustment of the mA and/or kV according to patient size, use of iterative reconstruction technique. Coronal and sagittal reformatted images were created and reviewed. Axial reformatted images were created and reviewed. COMPARISON: No relevant prior studies available. FINDINGS: Vertebrae: Unremarkable. No acute fracture. Discs/spinal canal/neural foramina: No acute findings. No spinal canal stenosis. Soft tissues: Unremarkable. IMPRESSION: 1. No acute traumatic injury. 2. Unremarkable study.
--- NOTE | 2020-04-22 18:55 | Diagnostic Imaging Report ---
EXAM: CT Lumbar Spine Without Intravenous Contrast CLINICAL HISTORY: TRAUMA TECHNIQUE: Axial computed tomography images of the lumbar spine without intravenous contrast. CTDI is 9 mGy and DLP is 492 mGy-cm. One or more of the following dose reduction techniques were used: automated exposure control, adjustment of the mA and/or kV according to patient size, use of iterative reconstruction technique. Coronal and sagittal reformatted images were created and reviewed. Axial reformatted images were created and reviewed. COMPARISON: No relevant prior studies available. FINDINGS: Vertebrae: Unremarkable. No acute fracture. Discs/spinal canal/neural foramina: No acute findings. No spinal canal stenosis. Soft tissues: Unremarkable. IMPRESSION: 1. No acute traumatic injury. 2. Unremarkable study.
--- NOTE | 2020-04-22 19:14 | Emergency Room Report ---
History of Present Illness General Chief Complaint: Back Injury Source: Patient Present Illness HPI 25-year-old female with no symptom past medical history here status post fall. Reports that she fell yesterday as she was going downstairs and she landed on her lumbar region. Also complains of thoracic pain rating it 7 out of 10. Has range of motion denies any tingling or numbness. Denies any saddle paresthesia , urinary bowel incontinence. Has been taking ibuprofen 800 minimal relief. Denies and signed a waiver to be scanned. Denies chest pain, shortness of breath, headache and dizziness per denies any head injury or loss of consciousness. Allergies: Coded Allergies: No Known Allergies (Unverified , 04/22/20) COVID-19 Screening Contact w/high risk pt: No Recent Travel to affected area: No Experienced COVID-19 symptoms?: No COVID-19 Testing performed FISHERIES TECHNICAL OFFICER: No Patient History Past Medical History: see triage record Past Surgical History: none Pertinent Family History: none Last Menstrual Period: 03/26/2020 Now: No Immunizations: UTD Reviewed Nursing Documentation: PMH: Agreed; PSxH: Agreed Nursing Documentation-PMH Past Medical History: No History, Except For Hx Diabetes: Yes - type 1 Review of Systems All Other Systems: negative except mentioned in HPI Physical Exam Vital Signs Date Time Temp Pulse Resp B/P (MAP) Pulse Ox O2 Delivery O2 Flow Rate FiO2 04/22/20 17:58 98.1 82 16 108/72 (84) 99 Room Air Sp02 EP Interpretation: reviewed, normal General Appearance: no apparent distress, alert, GCS 15, non-toxic Head: normocephalic, atraumatic Eyes: bilateral eye normal inspection, bilateral eye PERRL ENT: hearing grossly normal, normal pharynx, no angioedema, normal voice Neck: full range of motion, supple, thyroid normal, no meningismus, no carotid bruits, supple/symm/no masses Respiratory: chest non-tender, lungs clear, normal breath sounds, no rhonchi, no retraction, no wheezing, speaking full sentences Cardiovascular #1: regular rate, rhythm, no edema Cardiovascular #2: 2+ carotid (R), 2+ carotid (L), 2+ radial (R), 2+ radial (L) , 2+ femoral (R), 2+ femoral (L), 2+ dorsalis pedis (R), 2+ dorsalis pedis (L) Gastrointestinal: normal bowel sounds, non tender, soft, non-distended, no guarding, no rebound Rectal: deferred Genitourinary: no CVA tenderness Musculoskeletal: back normal, digits/nails normal, no calf tenderness, pelvis stable, gait/station normal, no lower extremity edema, non-tender Neurologic: alert, motor strength/tone normal, oriented x3, sensory intact, responsive, speech normal Psychiatric: judgement/insight normal, memory normal, mood/affect normal, no suicidal/homicidal ideation Skin: no rash Lymphatic: no adenopathy Medical Decision Making PA Attestation All diagnoses and treatment plans were reviewed and discussed with my supervising physician Dr. Gtz Diagnostic Impression: Primary Impression: Lumbar contusion Additional Impression: Thoracic myofascial strain ER Course 25-year-old female with no symptom past medical history here status post fall. Reports that she fell yesterday as she was going downstairs and she landed on her lumbar region. Also complains of thoracic pain rating it 7 out of 10. Has range of motion denies any tingling or numbness. Denies any saddle paresthesia , urinary bowel incontinence. Has been taking ibuprofen 800 minimal relief. Denies and signed a waiver to be scanned. Denies chest pain, shortness of breath, headache and dizziness per denies any head injury or loss of consciousness. Ddx considered but are not limited to: Lumbar spine sprain, strain, fracture, contusion, neuropathy Vital signs: are WNL, pt. is afebrile H&PE are most consistent with: Lumbar contusion, thoracic contusion and strain ORDERS: Lumbar spine CT scan no contrast, C-spine CT scan, C-spine CT scan, ibuprofen, Robaxin, lidocaine patches ER intervention: Toradol IM DISCHARGE: At this time pt. is stable for d/c to home. Will provide printed patient care instructions, and any necessary prescriptions. Care plan and follow up instructions have been discussed with the patient prior to discharge. Patient take medication as directed, follow-up primary care provider, if worsening symptoms return to the emergency room. Also referral to customer quality specialist and physical therapy may be needed. Patient also asked me if he could she could be tested for sexually transmitted diseases. Patient reports that she has not been sexually active for the past 8 months and has no symptoms and just wants to be tested. I gave a list of clinics that she could check to see if they will do testing for her at this time. Patient agrees with this treatment. CT/MRI/US Diagnostic Results CT/MRI/US Diagnostic Results #1: Imaging Test Ordered: CT C-spine no contrast Impression COMPARISON: No relevant prior studies available. FINDINGS: Vertebrae: Unremarkable. No acute fracture. Discs/spinal canal/neural foramina: No acute findings. No spinal canal stenosis. Soft tissues: Unremarkable. IMPRESSION: 1. No acute traumatic injury. 2. Unremarkable study. CT/MRI/US Diagnostic Results #2: Imaging Test Ordered: CT T spine no contrast Impression COMPARISON: No relevant prior studies available. FINDINGS: Vertebrae: Unremarkable. No acute fracture. Discs/spinal canal/neural foramina: No acute findings. No spinal canal stenosis. Soft tissues: Unremarkable. IMPRESSION: 1. No acute traumatic injury. 2. Unremarkable study. CT/MRI/US Diagnostic Results #3: Imaging Test Ordered: CT L-spine no contrast Impression COMPARISON: No relevant prior studies available. FINDINGS: Vertebrae: Unremarkable. No acute fracture. Discs/spinal canal/neural foramina: No acute findings. No spinal canal stenosis. Soft tissues: Unremarkable. IMPRESSION: 1. No acute traumatic injury. 2. Unremarkable study. Last Vital Signs Date Time Temp Pulse Resp B/P (MAP) Pulse Ox O2 Delivery O2 Flow Rate FiO2 04/22/20 18:42 98.1 16 108/72 99 Room Air 04/22/20 17:58 82 Disposition: HOME, SELF-CARE Condition: Stable Scripts Lidocaine Patch* (Lidoderm Patch*) 1 Each Adh..patch 1 PATCH TOPIC DAILY, #30 PATCH Patch(es) may remain in place for up to 12 hours in any 24-hour period. Prov: Jose García 04/22/20 Ibuprofen (Ibu) 800 Mg Tablet 800 MG PO TID, #30 TAB Prov: AsafmogJose gao 04/22/20 Methocarbamol* (ROBAXIN-500*) 500 Mg Tablet 500 MG ORAL TID PRN for For Pain, #15 TAB 0 Refills Prov: Jose García 04/22/20 Referrals: NON PHYSICIAN (PCP) Patient Instructions: Back Pain, Adult, Contusion, [id number] Additional Instructions: Take medication as directed, follow-up with your primary care provider for Ortho referral, if worsening symptoms return to the emergency room Jose García Apr 22, 2020 19:14
[2020-04-22] MEDS ORDERED: ROBAXIN-500MG ORAL (19:15)
[2020-04-22] MEDS ORDERED: IBU800 MG PO (19:15)
[2020-04-22] MEDS ORDERED: LIDODERM700 M1 TOPIC (19:15)
[2020-04-22 19:24] VITALS: BP 108/72
--- NOTE | 2020-04-22 19:24 | NUR ---
ED Nurse Note: Pt cleared by health care Provider for discharge. DC instructions/prescription was given and explained to pt and verbalized understanding of teachings. All medical deviecs such as ID band removed. Pt is AAO x4, ambulatory and left with all personal belongings.
== END 2020-04-22 19:24 | disposition home or self-care (01) ==
LOC: EMR 18:15
DX: S29.012A Strain of muscle and tendon of back wall of thorax, initial encounter (principal); S30.0XXA Contusion of lower back and pelvis, initial encounter; W10.9XXA Fall (on) (from) unspecified stairs and steps, initial encounter; Y92.9 Unspecified place or not applicable; E10.8 Type 1 diabetes mellitus with unspecified complications
CPT/HCPCS: 72125; 72128; 72131; 81025; Z7502; 99284

== ENCOUNTER 2020-08-18 18:44 | Emergency (ER) | payer MEDICAID, OTHER ==
[~2020-08-18] VITALS: Ht 152.4 cm; Wt 58.5 kg
[~2020-08-18 18:44] MED LIST changes: +IBU800 MG PO; +LIDODERM700 M1 TOPIC; +ROBAXIN-500MG ORAL
--- NOTE | 2020-08-18 19:10 | NUR ---
ED Nurse Note: Pt has lower abdominal pain 8/10 for 1 day. Pt denies nausea and vomiting. Pt is alert and orientedx4, ambulatory. Pt set up on monitor. Pt has been seen by ANGELINA.
[2020-08-18 19:12] VITALS: BP 129/67
[2020-08-18] MEDS ORDERED: Omnipaque-300 100ml vial INJ PRN (19:15)
--- NOTE | 2020-08-18 19:28 | NUR ---
ED Nurse Note: Received report from JOESPH Lieberman. inserted IV 20 gauge in patiients right AC. labs collected and sent down
[2020-08-18 19:37] LABS: BASOPHILS % (AUTO) 1.2 % (0.0-2.0); EOSINOPHILS % (AUTO) 1.6 % (0.0-3.0); HEMATOCRIT 42.7 % (37.0-47.0); HEMOGLOBIN 14.3 G/DL (12.0-16.0); LYMPHOCYTES % (AUTO) 28.5 % (20.0-45.0); MEAN CORPUSCULAR VOLUME 92 FL (80-99); MONOCYTES % (AUTO) 7.8 % (1.0-10.0); NEUTROPHILS % (AUTO) 60.8 % (45.0-75.0); PLATELET COUNT 332 K/UL (150-450); RED BLOOD COUNT 4.63 M/UL (4.20-5.40); RED CELL DISTRIBUTION WIDTH 11.9 % (11.6-14.8); WHITE BLOOD COUNT 8.7 K/UL (4.8-10.8)
[2020-08-18 19:39] LABS: APPEARANCE,URINE CLEAR; BILIRUBIN, URINE NEGATIVE (NEGATIVE); COLOR,URINE PALE YELLOW; GLUCOSE, URINE (UA) 4+ (NEGATIVE); KETONES,URINE 3+ (NEGATIVE); LEUKOCYTE ESTERASE ,URINE NEGATIVE (NEGATIVE); NITRITE,URINE NEGATIVE (NEGATIVE); PH,URINE 5 (4.5-8.0); PROTEIN,URINE NEGATIVE (NEGATIVE); UROBILINOGEN,URINE NORMAL MG/DL (0.0-1.0)
[2020-08-18 19:48] LABS: ALANINE AMINOTRANSFERASE 9 U/L (12-78); ALBUMIN 3.6 G/DL (3.4-5.0); ALBUMIN/GLOBULIN RATIO 1.1 (1.0-2.7); ALKALINE PHOSPHATASE 91 U/L (46-116); ANION GAP 10 mmol/L (5-15); ASPARTATE AMINO TRANSFERASE 13 U/L (15-37); BILIRUBIN,TOTAL 0.3 MG/DL (0.2-1.0); BLOOD UREA NITROGEN 20 mg/dL (7-18); CALCIUM 8.5 MG/DL (8.5-10.1); CARBON DIOXIDE 24 MMOL/L (21-32); CHLORIDE 100 MMOL/L (98-107); CREATININE 0.9 MG/DL (0.55-1.30); POTASSIUM 3.4 MMOL/L (3.5-5.1); SODIUM 134 MMOL/L (136-145)
[2020-08-18 21:00] VITALS: BP 131/66
--- NOTE | 2020-08-18 21:19 | Emergency Room Report ---
History of Present Illness General Chief Complaint: Abdominal Pain Source: Patient Present Illness HPI 25-year-old female with history of type 1 diabetes currently on insulin here complaining of 1 day of left lower quadrant abdominal pain rating 7 out of 10 without radiation. Reported in the past several months she has been having this pain on and off however today it got worse. Denies any constipation, diarrhea, blood in stool. Denies any nausea or vomiting. Denies any abdominal pain diffusely. Denies any urinary frequency and urgency at this time. Denies any history of ovarian cyst. Reports her menstruations are regular. Patient was last sexually active 2 weeks ago. Has not taken medication for symptom relief. Denies any fever and chills. Denies tobacco smoke, drug use, alcohol intake. Allergies: Coded Allergies: No Known Allergies (Unverified , 04/22/20) COVID-19 Screening Contact w/high risk pt: No Recent Travel to affected area: No Experienced COVID-19 symptoms?: No COVID-19 Testing performed CADD OPERATOR: Yes - 07/29/20 COVID-19 Screening: Negative COVID-19 COVID-19 Testing Source: PATIENT FINANCIAL SERVICES COORDINATOR Patient History Past Medical History: see triage record Past Surgical History: none Pertinent Family History: none Last Menstrual Period: 07/07/20 Now: No Immunizations: UTD Reviewed Nursing Documentation: PMH: Agreed; PSxH: Agreed Nursing Documentation-PMH Past Medical History: No History, Except For Hx Diabetes: Yes - type 1 Review of Systems All Other Systems: negative except mentioned in HPI Physical Exam Vital Signs Date Time Temp Pulse Resp B/P (MAP) Pulse Ox O2 Delivery O2 Flow Rate FiO2 08/18/20 18:52 98.8 79 16 108/66 (80) 99 Room Air 08/18/20 19:12 100 Sp02 EP Interpretation: reviewed, normal General Appearance: no apparent distress, alert, GCS 15, non-toxic Head: normocephalic, atraumatic Eyes: bilateral eye normal inspection, bilateral eye PERRL ENT: hearing grossly normal, normal pharynx, no angioedema, normal voice Neck: full range of motion, supple/symm/no masses Respiratory: chest non-tender, lungs clear, normal breath sounds, no rhonchi, n o respiratory distress, no retraction, speaking full sentences Cardiovascular #1: regular rate, rhythm, no edema Gastrointestinal: normal bowel sounds, non tender, soft, no mass, no organomegaly, no peritonitis, no bruit, non-distended, no guarding, no hernia, no pulsatile mass, no rebound Rectal: deferred Genitourinary: no CVA tenderness Musculoskeletal: back normal Neurologic: alert, motor strength/tone normal, oriented x3, sensory intact, responsive, speech normal Psychiatric: judgement/insight normal, memory normal, mood/affect normal, no suicidal/homicidal ideation Skin: no rash Lymphatic: no adenopathy Medical Decision Making PA Attestation All my diagnosis and treatment plans were reviewed ad discussed with my supervising physician Dr. Angulo Diagnostic Impression: Primary Impression: Abdominal pain ER Course 25-year-old female with history of type 1 diabetes currently on insulin here complaining of 1 day of left lower quadrant abdominal pain rating 7 out of 10 without radiation. Reported in the past several months she has been having this pain on and off however today it got worse. Denies any constipation, diarrhea, blood in stool. Denies any nausea or vomiting. Denies any abdominal pain diffusely. Denies any urinary frequency and urgency at this time. Denies any history of ovarian cyst. Reports her menstruations are regular. Patient was last sexually active 2 weeks ago. Has not taken medication for symptom relief. Denies any fever and chills. Denies tobacco smoke, drug use, alcohol intake. Ddx considered but are not limited to: appendicitis, cholecystis, gastritis, gastroenteritis, UTI, pyelonephritis, SBO, diverticulitis, ovarian cyst, ectopic Vital signs: are WNL, pt. is afebrile H&PE are most consistent with: abdominal pain ORDERS: abdominal CT, abdominal pain set, pepcid, dicyclomine ED INTERVENTIONS: NS bolus DISCHARGE: At this time pt. is stable for d/c to home. Will provide printed patient care instructions, and any necessary prescriptions. Care plan and follow up instructions have been discussed with the patient prior to discharge. Take medication as directed, increase fiber intake, follow-up with STAMPING OPERATOR for pelvic ultrasound further evaluation, if worsening symptoms return to the emergency room CT/MRI/US Diagnostic Results CT/MRI/US Diagnostic Results : Imaging Test Ordered: CT abdomen pelvis with contrast Impression COMPARISON: No relevant prior studies available. FINDINGS: Lung bases: Unremarkable. ABDOMEN: Liver: Unremarkable. Gallbladder and bile ducts: Unremarkable. Pancreas: Unremarkable. Spleen: Unremarkable. Adrenals: Unremarkable. Kidneys and ureters: Unremarkable. No obstructing stones. No hydronephrosis. Stomach and bowel: Unremarkable. PELVIS: Appendix: Normal appendix. Bladder: Unremarkable. Reproductive: Corpus luteal cyst on the left ovary. No adnexal mass. Unremarkable appearance of the uterus. ABDOMEN and PELVIS: Intraperitoneal space: Trace physiologic free fluid within the pelvis. No free air. Bones/joints: No acute fracture. Soft tissues: Unremarkable. Vasculature: Unremarkable. Lymph nodes: Unremarkable. IMPRESSION: No acute findings in the abdomen or pelvis. Last Vital Signs Date Time Temp Pulse Resp B/P (MAP) Pulse Ox O2 Delivery O2 Flow Rate FiO2 08/18/20 19:12 76 19 Room Air 100 08/18/20 19:12 98.8 129/67 100 Disposition: HOME, SELF-CARE Condition: Stable Referrals: [facility],REFERR[facility] (PCP) Patient Instructions: Abdominal Pain, Adult Additional Instructions: Take medication as directed, increase fiber intake, follow-up with STAMPING OPERATOR for pelvic ultrasound further evaluation, if worsening symptoms return to the emergency room Jose García Aug 18, 2020 21:19
--- NOTE | 2020-08-18 21:44 | Diagnostic Imaging Report ---
EXAM: CT Abdomen and Pelvis With Intravenous Contrast CLINICAL HISTORY: PAIN TECHNIQUE: Axial computed tomography images of the abdomen and pelvis with intravenous contrast. CTDI is 4.4 mGy and DLP is 230.6 mGy-cm. One or more of the following dose reduction techniques were used: automated exposure control, adjustment of the mA and/or kV according to patient size, use of iterative reconstruction technique. COMPARISON: No relevant prior studies available. FINDINGS: Lung bases: Unremarkable. ABDOMEN: Liver: Unremarkable. Gallbladder and bile ducts: Unremarkable. Pancreas: Unremarkable. Spleen: Unremarkable. Adrenals: Unremarkable. Kidneys and ureters: Unremarkable. No obstructing stones. No hydronephrosis. Stomach and bowel: Unremarkable. PELVIS: Appendix: Normal appendix. Bladder: Unremarkable. Reproductive: Corpus luteal cyst on the left ovary. No adnexal mass. Unremarkable appearance of the uterus. ABDOMEN and PELVIS: Intraperitoneal space: Trace physiologic free fluid within the pelvis. No free air. Bones/joints: No acute fracture. Soft tissues: Unremarkable. Vasculature: Unremarkable. Lymph nodes: Unremarkable. IMPRESSION: No acute findings in the abdomen or pelvis.
[2020-08-18] MEDS ORDERED: FAMOTIDINE20 MG ORAL (21:46)
[2020-08-18] MEDS ORDERED: DICYCLOMINE HCL10 MG ORAL (21:46)
[2020-08-18 21:50] VITALS: BP 119/69
== END 2020-08-18 21:50 | disposition home or self-care (01) ==
LOC: EMR 19:32
DX: N83.12 Corpus luteum cyst of left ovary (principal); R10.32 Left lower quadrant pain; E10.8 Type 1 diabetes mellitus with unspecified complications; Z79.4 Long term (current) use of insulin
CPT/HCPCS: 36415; 74177; 80053; 81003; 81025; 83690; 85025; 96360; Q9965; Z7502; 99284